=== PATIENT | male | born 1955 | race Caucasian/White ===

== ENCOUNTER → 2016-08-31 | Outpatient (CLI) | payer OTHER, MEDICARE ==
[~2016-08-31] MED LIST: ANDG TOP; CARB1CAP10 PO; CYCL10TA6 PO; FSM70 PO; HYDR-4079 PO; LEVO137T3 PO; MECL1TAB42 PO; MODA1TAB PO; PRED-301 PO; ULT50HP PO; VTMD PO; [UNRECOGNIZED DRUG - OTHER] PO
--- NOTE | 2016-09-08 06:35 | CODING QUERY MEDICAL NECESSITY ---
SUPPORTING DIAGNOSIS NEEDED Dr. Reese, A supporting diagnosis is required for the test/procedure performed on this patient in order for us to be reimbursed by the patient's insurance. Please provide a supporting diagnosis for the following test/procedure listed below next to the test name along with your signature. *If there is no additional diagnosis for this patient that would support the following test/procedure please document that below next to the test/procedure. Test(s)/Procedure(s) that require a supporting diagnosis: * 04366 PSA DIAGNOSIS: DATE OF SERVICE: 08/31/16 Provider Signature: Date: Thank you Irvin Llanes [facility] Information Management Once completed, please kindly fax back to [phone] For questions please call [phone]
== END | disposition home or self-care (01) ==
LOC: C.LABBFT 12:41
PROVIDERS: ATTEND Internal Medicine Endocrinology, Diabetes & Metabolism
DX: E03.8 Other specified hypothyroidism (principal); E27.49 Other adrenocortical insufficiency; E29.1 Testicular hypofunction; D32.9 Benign neoplasm of meninges, unspecified; N40.0 Benign prostatic hyperplasia without lower urinary tract symptoms; D49.7 Neoplasm of unspecified behavior of endocrine glands and other parts of nervous system

== ENCOUNTER → 2016-10-20 | Outpatient (CLI) | payer OTHER, MEDICARE ==
[2016-10-20 18:16] LABS: LYME DISEASE AB IGG NEG (NEG); LYME DISEASE AB IGM NEG (NEG)
--- NOTE | 2016-11-13 09:49 | EDITING REQUIRED CODING QUERY ---
TREATMENT RENDERED WITHOUT A DIAGNOSIS To promote full compliance with coding requirements relating to patient care, physician participation is requested in all cases of medical billing coder uncertainty. Please assist us with providing a diagnosis/symptom for the test(s) below: A diagnosis/symptom was not documented on your Order. A valid diagnosis/symptom is required to bill all insurances. Please remember that we are unable to code a diagnosis of rule out, probable, possible, questionable, or suspected. Tests that require a diagnosis: LYME IGM ROUTINE VENIPUNCTURE CANT CODE INSECT BITE PRINICIPAL PLEASE PROVIDE VALID DX. Provider Signature: Date: Thank you Lina Vang [employer] Information Management Once completed, please kindly fax back to [phone] For questions please call [phone]
--- NOTE | 2016-11-18 06:57 | CODING QUERY NO DIAGNOSIS ---
TREATMENT RENDERED WITHOUT A DIAGNOSIS To promote full compliance with coding requirements relating to patient care, physician participation is requested in all cases of steel fabricating supervisor uncertainty. Please assist us with providing a diagnosis/symptom for the test(s) below: A diagnosis/symptom was not documented on your Order. A valid diagnosis/symptom is required to bill all insurances. Please remember that we are unable to code a diagnosis of rule out, probable, possible, questionable, or suspected. Tests that require a diagnosis: LYME IGG LYME IGM NEED A PRIMARY DX. CANT USE TICK BITE Provider Signature: Date: Thank you Lina Vang [employer] Information Management Once completed, please kindly fax back to [phone] For questions please call [phone]
== END | disposition home or self-care (01) ==
LOC: C.LABBFT 09:27
PROVIDERS: ATTEND Internal Medicine
DX: Z01.89 Encounter for other specified special examinations (principal); W57.XXXA Bitten or stung by nonvenomous insect and other nonvenomous arthropods, initial encounter

== ENCOUNTER → 2016-12-22 | Outpatient (CLI) | payer OTHER, MEDICARE ==
[2016-12-22 18:01] LABS: LYME DISEASE AB IGG NEG (NEG); LYME DISEASE AB IGM NEG (NEG)
[2016-12-24 14:50] LABS: EPSTEIN BARR VIR CAPSID IGG >750.00 U/ML
== END | disposition home or self-care (01) ==
LOC: C.LABBFT 14:26
PROVIDERS: ATTEND Physician Assistant Medical
DX: Z11.59 Encounter for screening for other viral diseases (principal); R53.83 Other fatigue

== ENCOUNTER → 2016-12-28 | Outpatient (CLI) | payer OTHER, MEDICARE ==
[2016-12-28 14:56] LABS: BASO % 0.7 %; BASO ABS # 0.04 K/uL (0-0.2); COMPLETE YES; IG% 0.3 %; LYMPH % 31.3 %; LYMPH ABS # 1.83 K/uL (1.2-3.4); MEAN CELL VOLUME 86.2 fL (80-100); MEAN CORPUSCULAR HEMOGLOBIN 30.8 pg (25-34); MEAN CORPUSCULAR HGB CONC 35.8 g/dl (32-36); MEAN PLATELET VOLUME 8.5 fL (7.4-10.4); MONO % 13.7 %; PLATELET COUNT 210 K/uL (130-400); RED BLOOD COUNT 4.41 M/uL (4.7-6.1); WHITE BLOOD COUNT 5.84 K/uL (4.8-10.8)
[2016-12-28 15:38] LABS: ALT/SGPT 62 U/L (12-78); AST/SGOT 36 U/L (15-37); BLOOD UREA NITROGEN 11 mg/dl (7-18); BUN/CREATININE RATIO 14.5 (10-20); CALCIUM 8.7 mg/dl (8.5-10.1); CARBON DIOXIDE 27 mmol/L (21-32); CHLORIDE 108 mmol/L (98-107); CREATININE 0.77 mg/dl (0.60-1.40); GLUCOSE 92 mg/dl (70-99); POTASSIUM 4.1 mmol/L (3.5-5.1); SODIUM 142 mmol/L (136-145)
[2016-12-28 15:40] LABS: ALB/GLOB RATIO 1.1 (0.9-2); ALKALINE PHOSPHATASE 48 U/L (45-117)
== END | disposition home or self-care (01) ==
LOC: C.LAB 13:47
PROVIDERS: ATTEND Nurse Practitioner
DX: J32.9 Chronic sinusitis, unspecified (principal)

== ENCOUNTER → 2017-02-23 | Outpatient (CLI) | payer OTHER, MEDICARE ==
[2017-02-23 18:07] LABS: ALT/SGPT 30 U/L (12-78); AST/SGOT 18 U/L (15-37); BLOOD UREA NITROGEN 11 mg/dl (7-18); BUN/CREATININE RATIO 13.3 (10-20); CALCIUM 8.6 mg/dl (8.5-10.1); CARBON DIOXIDE 25 mmol/L (21-32); CHLORIDE 106 mmol/L (98-107); CREATININE 0.81 mg/dl (0.60-1.40); GLUCOSE 101 mg/dl (70-99); POTASSIUM 3.9 mmol/L (3.5-5.1); SODIUM 137 mmol/L (136-145)
[2017-02-23 18:11] LABS: ALB/GLOB RATIO 1.3 (0.9-2); ALKALINE PHOSPHATASE 50 U/L (45-117)
[2017-02-24 06:39] LABS: ESTIMATED AVERAGE GLUCOSE 97 mg/dl; HA1C FLAG Normal (Normal)
== END | disposition home or self-care (01) ==
LOC: C.LABBFT 12:07
PROVIDERS: ATTEND Internal Medicine Endocrinology, Diabetes & Metabolism
DX: E23.0 Hypopituitarism (principal); E03.8 Other specified hypothyroidism; E27.49 Other adrenocortical insufficiency; E29.1 Testicular hypofunction; D32.9 Benign neoplasm of meninges, unspecified; M81.8 Other osteoporosis without current pathological fracture; Z87.81 Personal history of (healed) traumatic fracture

== ENCOUNTER → 2017-03-18 | Outpatient (CLI) | payer OTHER, MEDICARE ==
--- NOTE | 2017-03-18 19:46 | DIAGNOSTIC IMAGING REPORT ---
THORACIC SPINE 3 VIEWS, LUMBAR SPINE 5 VIEWS HISTORY: Mid and lower back pain. COMPARISON: None. FINDINGS: Thoracic spine: There is no fracture. No subluxation. Mild S-shaped scoliosis of the thoracolumbar spine. Moderate compression deformity at T7 and mild superior endplate compression deformity at T6, T8, and T9. These are technically age indeterminate but likely old. No associated retropulsion. No paravertebral soft tissue swelling identified. Mild degenerative disc disease throughout the majority of the thoracic spine. Lumbar spine: No fractures or subluxation within the lumbar spine. The sacrum appears intact. Mild disc space narrowing at L5-S1. Mild disc space narrowing at L4-5. Partially visualized left hip prosthesis. IMPRESSION: 1. Mild to moderate compression deformity seen from T6 through T9. These are technically age indeterminate but likely old. 2. No fractures identified within the lumbar spine. 3. Mild degenerative disc disease seen within the thoracic and lumbar spine as described above. 4. Mild S-shaped scoliosis. Electronically signed by: Loyd Arcos M.D. 03/18/2017 7:44 PM Dictated Date/Time: 03/18/2017 7:40 PM
--- NOTE | 2017-03-18 19:53 | DIAGNOSTIC IMAGING REPORT ---
R RIBS UNILATERAL WITH PA CHEST CLINICAL HISTORY: MID BACK PAIN COMPARISON STUDY: Chest 12/06/2015. FINDINGS: Old, healed right-sided rib fractures. No acute rib fractures. No pneumothorax. The heart is normal in size. No pleural effusions. The lungs are clear. IMPRESSION: Multiple old, healed right-sided rib fractures. No acute rib fractures. No pneumothorax. Electronically signed by: Loyd Arcos M.D. 03/18/2017 7:52 PM Dictated Date/Time: 03/18/2017 7:50 PM
== END | disposition home or self-care (01) ==
LOC: C.RAD 18:33
PROVIDERS: ATTEND Nurse Practitioner
DX: M54.9 Dorsalgia, unspecified (principal)

== ENCOUNTER 2017-04-14 14:44 | Emergency (ER) | payer OTHER, MEDICARE ==
[~2017-04-14] VITALS: Ht 182.9 cm; Wt 98.0 kg
[~2017-04-14 14:44] MED LIST changes: -HYDR-4079 PO; -MODA1TAB PO; -[UNRECOGNIZED DRUG - OTHER] PO
[2017-04-14 14:47] VITALS: TEMP 36.3; Ht 182.9 cm; Wt 98.0 kg
[2017-04-14] MEDS ORDERED: ALEN70TA2 PO (15:05)
[2017-04-14] MEDS ORDERED: CARB200T2 PO (15:05)
[2017-04-14] MEDS ORDERED: ERGO500037 PO (15:05)
[2017-04-14] MEDS ORDERED: LEVO150T9 PO (15:05)
[2017-04-14] MEDS ORDERED: ULT50X PO (15:07)
[2017-04-14] MEDS: XYLOCAINE 1%/SOD BICARB 20 ML VIAL INFIL ONE (15:30)
--- NOTE | 2017-04-14 16:11 | EMERGENCY ROOM VISIT NOTE ---
ED Visit Note First contact with patient: 14:51 I did evaluate and examine this patient myself. I did guide management for the patient. I agree with the APC's assessment as discussed. Please see the APC's dictation for further details. The patient has a laceration to his fifth digit. The laceration is too old to suture at this time. There are no signs of infection. He was advised to follow up closely with his doctor and to watch for signs of infection.
--- NOTE | 2017-04-14 16:18 | EMERGENCY ROOM VISIT NOTE ---
ED Visit Note First contact with patient: 14:51 CHIEF COMPLAINT: Right fifth finger laceration last evening HISTORY OF PRESENT ILLNESS: Patient is an ambidextrous 61-year-old white male who presents the emergency department for evaluation of a laceration to the right fifth finger that he sustained last evening. Injury is greater than 12 hours old. He slipped while opening a box and cut himself with a knife. He cleansed the area with soap and water, and applied a bandage. Bleeding was controlled, but the bandage fell off overnight and he had to reapply this morning. He notes a mild throbbing pain at the site of the laceration that he rates a 1/10. His tetanus is up-to-date. Denies weakness or numbness of the finger. REVIEW OF SYSTEMS: Review of systems as per HPI. All other systems reviewed were negative. At least 6 systems reviewed. PMH: Electronic medical records are reviewed and summarized as above/below. See Problem List. SOCIAL HISTORY: Patient lives at home. Retired. Nonsmoker. PHYSICAL EXAM: Vital Signs: Reviewed Nurse's notes. There is a 3 cm long laceration on the palmar aspect of the of the finger pad of the right fifth finger. It comes to but does not cross the crease of the DIP joint. The edges gape apart with traction. There is no foreign material in the wound and it looks clean. There is no bleeding. No deep structures such as tendons or nerves are seen in the base of the wound. Flexion of the finger is full and strong at the DIP, PIP and MCP with each joint isolated. EMERGENCY DEPARTMENT COURSE: The patient was seen and evaluated as above. His laceration is greater than 12 hours old, and it was not felt that delayed primary closure was appropriate given the risk of infection. Patient expressed understanding and was in agreement. The patient's finger was cleansed with saline and Betadine, and anesthetized with 1% plain buffered lidocaine. The wound was then irrigated copiously with normal saline solution. Finger tourniquet was applied for hemostasis, then benzoin and Steri-Strips were applied to reapproximate the laceration. Tourniquet was removed, and hemostasis was maintained. Dressing and a short metal finger splint were applied. He does not have any evidence for tendinous or nerve injury. Wound care measures were discussed. He was discharged home in good condition. Medication reconciliation: I attest that I have personally reviewed the patient' s current medication list. Blood pressure screening : Patient was found to have normal blood pressure on screening and does not require follow-up. Problem List Medical Problems: (1) Fever Status: Resolved (2) Headache Status: Resolved (3) Meningioma Status: Chronic (4) Meningitis Status: Resolved (5) Pneumonia Status: Resolved (6) Viral meningitis Status: Resolved Surgical Problems: (1) History of appendectomy Status: Resolved (2) History of brain surgery Status: Resolved (3) History of craniotomy Status: Resolved (4) History of gamma knife treatment Status: Resolved Current/Historical Medications Scheduled , 1 CAP PO DAILY Alendronate Sodium (Fosamax), 70 MG PO WK Carbamazepine (Epitol), 200 MG PO BID Ergocalciferol (Vitamin D 69406 Unit), 50,000 UNIT PO BID Levothyroxine Sodium (Levothyroxine Sodium), 1 TAB PO DAILY Modafinil (Provigil), 200 MG PO DAILY/PRN Prednisone (Prednisone), 5 MG PO DAILY Testosterone (Androgel), 50 GM TOP DAILY Scheduled PRN Cyclobenzaprine Hcl (Flexeril), 1 TAB PO BID PRN for Muscle Spasms Hydrocodone/Acetaminophen 10MG/325MG ([place] 10MG/325MG), 1 TAB PO Q4H PRN for Pain Meclizine Hcl (Meclizine Hcl), 25 MG PO DAILY PRN for DIZZINESS Tramadol HCl (Tramadol HCl), 1-2 TABS PO Q4 PRN for Pain Allergies Coded Allergies: No Known Allergies (Verified , 08/22/13) Vital Signs Date Time Temp Pulse Resp B/P (MAP) Pulse Ox O2 Delivery O2 Flow Rate FiO2 04/14/17 16:33 72 18 112/76 96 04/14/17 14:47 36.3 77 18 139/86 100 Departure Information Impression Primary Impression: Laceration of finger Referrals Wilfred Minor M.D. (PCP) Patient Instructions [facility] Additional Instructions Allow Steri-Strips to fall off on their own. May reinforce or replace the Steri -Strips as needed. Keep the area covered with a bandage as needed. Avoid getting the wound excessively wet or immersing it in standing water, but may cleanse gently with mild soap and water. Wear the metal finger splint for support and protection to promote healing. May remove splint for wound care and gentle range of motion. Return for any signs of infection (increasing redness, swelling, drainage). Ice and elevate for swelling and pain. Ibuprofen 600 mg and Tylenol 1000 mg every 6 hrs for pain.
[2017-04-14 16:33] VITALS: BP 112/76; PULSE 72; O2SAT 96
[2017-04-14] MEDS ORDERED: ANDG TOP (16:59)
[2017-04-14] MEDS ORDERED: HYDR-4079 PO (19:16)
[2017-04-14] MEDS ORDERED: MODA1TAB PO (19:49)
[2017-04-14] MEDS ORDERED: [UNRECOGNIZED DRUG - OTHER] PO (23:11)
== END 2017-04-14 16:33 | disposition home or self-care (01) ==
LOC: C.EDB 14:47 → C.EDD 16:33
DX: S61.216A Laceration without foreign body of right little finger without damage to nail, initial encounter (principal); W26.0XXA Contact with knife, initial encounter; Y93.89 Activity, other specified; Y99.8 Other external cause status; Z87.01 Personal history of pneumonia (recurrent); Z90.89 Acquired absence of other organs; Z98.890 Other specified postprocedural states

== ENCOUNTER → 2017-05-20 | Outpatient (CLI) | payer OTHER, MEDICARE ==
[~2017-05-20] MED LIST changes: +ALEN70TA2 PO; -CARB1CAP10 PO; +CARB200T2 PO; +ERGO500037 PO; -FSM70 PO; +HYDR-4079 PO; -LEVO137T3 PO; +LEVO150T9 PO; +MODA1TAB PO; -ULT50HP PO; +ULT50X PO; -VTMD PO; +[UNRECOGNIZED DRUG - OTHER] PO
[2017-05-20 17:35] LABS: HEMATOCRIT 40.2 % (42-52)
[2017-05-20 18:14] LABS: BLOOD UREA NITROGEN 7 mg/dl (7-18); CALCIUM 8.8 mg/dl (8.5-10.1); CARBON DIOXIDE 30 mmol/L (21-32); CREATININE 0.96 mg/dl (0.60-1.40); GLUCOSE 103 mg/dl (70-99); POTASSIUM 3.8 mmol/L (3.5-5.1); SODIUM 138 mmol/L (136-145)
== END | disposition home or self-care (01) ==
LOC: C.LABBFT 11:53
PROVIDERS: ATTEND Internal Medicine Endocrinology, Diabetes & Metabolism
DX: E23.0 Hypopituitarism (principal); E03.8 Other specified hypothyroidism; E27.49 Other adrenocortical insufficiency; E29.1 Testicular hypofunction

== ENCOUNTER → 2017-06-10 | Outpatient (CLI) | payer OTHER, MEDICARE | END | disposition home or self-care (01) | LOC: C.LABBFT 14:25 | PROVIDERS: ATTEND Internal Medicine | DX: R35.0 Frequency of micturition (principal) ==

== ENCOUNTER → 2017-07-08 | Outpatient (CLI) | payer OTHER, MEDICARE ==
[~2017-07-08] VITALS: Ht 181.6 cm; Wt 219.2 kg
[2017-07-08 10:42] VITALS: BP 121/78; PULSE 81; Ht 181.6 cm; Wt 219.2 kg
== END | disposition home or self-care (01) ==
LOC: C.NEUR 10:20
PROVIDERS: ATTEND Internal Medicine Pulmonary Disease
DX: G47.31 Primary central sleep apnea (principal)

== ENCOUNTER → 2017-07-20 | Outpatient (CLI) | payer OTHER, MEDICARE ==
[2017-07-20 13:05] LABS: BASO % 0.5 %; BASO ABS # 0.03 K/uL (0-0.2); EOS % 1.5 %; EOS ABS # 0.09 K/uL (0-0.5); HEMATOCRIT 39.3 % (42-52); HEMOGLOBIN 13.6 g/dL (14.0-18.0); IG# 0.01 K/uL (0.00-0.02); LYMPH % 31.6 %; LYMPH ABS # 1.91 K/uL (1.2-3.4); MEAN CELL VOLUME 89.5 fL (80-100); MEAN CORPUSCULAR HGB CONC 34.6 g/dl (32-36); MEAN PLATELET VOLUME 8.7 fL (7.4-10.4); MONO % 11.6 %; NEUT % 54.6 %; PLATELET COUNT 229 K/uL (130-400); RED CELL DISTRIBUTION WIDTH CV 12.3 % (11.5-14.5); RED CELL DISTRIBUTION WIDTH SD 40.1 fL (36.4-46.3); WHITE BLOOD COUNT 6.04 K/uL (4.8-10.8)
[2017-07-20 13:32] LABS: ALBUMIN 3.7 gm/dl (3.4-5.0); ALT/SGPT 33 U/L (12-78); AST/SGOT 22 U/L (15-37); BLOOD UREA NITROGEN 6 mg/dl (7-18); CALCIUM 8.1 mg/dl (8.5-10.1); CARBON DIOXIDE 27 mmol/L (21-32); GLUCOSE 96 mg/dl (70-99); POTASSIUM 4.1 mmol/L (3.5-5.1); SODIUM 138 mmol/L (136-145)
[2017-07-20 13:35] LABS: ALKALINE PHOSPHATASE 45 U/L (45-117); TOTAL PROTEIN 7.1 gm/dl (6.4-8.2)
== END | disposition home or self-care (01) ==
LOC: C.LAB1850 12:11
PROVIDERS: ATTEND Psychiatry & Neurology Neurology
DX: G40.209 Localization-related (focal) (partial) symptomatic epilepsy and epileptic syndromes with complex partial seizures, not intractable, without status epilepticus (principal); N13.30 Unspecified hydronephrosis

== ENCOUNTER → 2017-07-27 | Outpatient (CLI) | payer OTHER, MEDICARE ==
--- NOTE | 2017-07-28 06:01 | PAP/PSG TECHNICIAN REPORT ---
[facility] Sports Director Polysomnogram Report Study name: None Report date: 07/28/2017 Study date: 07/27/2017 Referring Physician: Dr. Messi Garcia DO Name: NICOLE MANCIA Interpreting Physician: Messi Garcia D.O. Date of : 1955 Sports Director: Lina Martinez RPSGT. Sex: Male Age: 61 Study Type: PSG Weight: 219 lbs Height: 61 years, Height 5' 11.5" BMI: 30.12 Medications: EPITOL 200 MG, MODAFINIL 200 MG, TRAMADOL 50 MG, DOXEPIN 25 MG, NYSTATIN 225273 UNIT/GM, MECLIZINE 25 MG, SUMATRIPTAN 100 MG, ALENDRONATE 70 MG, TESTOSERONE 50 MG/5 GM 1% GEL, CYCLOBENZAPRINE 10 MG, HYDROCODONE-ACETAMINOPHEN 10-325 MG, VIT D 91328 UNIT, LEVOTHYROXINE 150 MCG Patient History 61 yr-old male here for a baseline study. He has a history of central sleep apnea with use of O2 while living in [place]. He has now been witnessed to snore and have apneas. He is back to assess his JONES and to see if central apneas are still present. His [place] scale is 10. The test was started on room air. ETCO2 testing was not utilized during this study. Room 3 Parameters Monitored NPSG: E1-M2, E2-M1, Fp1-M2, Fp2-M1, F3-M2, F4-M2, F4-M1, C3-M2, C4-M2, C4-M1, O1-M2, O2-M2, O2-M1, T3-M2, T4-M1, P3-M2, P4-M1, CHIN1, CHIN2, HR, EKG, Legs, PFLOW, SNOR, FLOW, CFLOW, Tidal Volume, THOR, ABDO, SpO2, PLTH, CPRESS, ETCO2 Wave, ETCO2, pH Sleep Architecture Sleep Stages Time at Lights Off 10:04:01 PM STAGES Time (min.) TST (%) Time at Lights On 5:30:01 AM Wake 67.0 -- Total Recording Time (TRT) 446.00 min. N1 37.5 10 Total Sleep Period (TSP) 441.5 min. N2 250.5 66 Total Sleep Time (TST) 379.0min. N3 49.5 13 Awake Time 67.0 min. REM 41.5 11 Wake after Sleep Onset 62.5 min. Sleep Efficiency (SE) 85 % Sleep Onset Latency (KADEEM) 4.5 min. Number of Stage 1 Shifts None Awakenings 27 Stage Changes 120 Number of REM periods 3 REM 41.5 11 REM Latency 263.5 min. NREM 337.5 89 Body Position Analysis Supine Right Left Side Prone Vertical Total Sleep Time (min.) 138.3 166.0 119.9 285.89 0.0 0.0 Total Sleep Time (%) 25% 44% 32% 75 0% N/A% Total Sleep Time REM (min.) 41.5 0.0 0.0 None 0.0 0.0 Total Sleep Time NREM (min.) 51.6 166.0 119.9 None 0.0 0.0 Intermittent Wake (min.) 45.2 13.3 8.4 None 0.0 0.0 Total Sleep Period (%) 30% None None None None None Arousals Myoclonus (PLM) * Events Count Index Events Count Index Spontaneous 19 3 Events Awake (PLMW) 100 89.6 Respiratory 7 1.1 Events Asleep w/ Arousal (PLMA) 98 15.5 PLM 98 16 Events Asleep w/o Arousal (PLMS) 454 71.9 Snoring 10 2 Total Asleep 552 87.4 Total 134 21 Total 652 88 Respiratory Analysis * CA OA MA CH H RERA Total Count 1 0 0 0 13 3 14 Index 0.2 0.0 0.0 0 2.1 0 2.7 Mean Duration 14.0 0.0 0.0 0.00 18.0 19.2 17.9 Longest Duration 14.0 0.0 0.0 0.00 0.0 22.4 33.1 Respiratory Event Summary Total Supine ~Supine Right Left Prone REM NREM Apneas Count 1 0 1 1 0 N/A 0 1 Index 0.2 0 0 0.4 0.0 N/A 0 0 Hypopneas (4% Desat) Count 13 6 7 3 4 N/A 1 12 Index 2.1 3.9 1 1.1 2.0 N/A 1.4 2.1 Apneas & All Hypopneas Count 14 6 8 4 4 N/A 1 13 Index 2.2 4 2 1 2 N/A 1.4 2.3 Respiratory Events (Pottery Machine Operator+All Hyp+RERA) Count 14 7 10 6 4 N/A 1 13 Index 2.7 5 2 2.2 2.0 N/A 2.9 2.7 Respiratory Related Arousal Count 7 7 4 3 1 N/A 1 6 Index 1.1 2 1 1 1 N/A 1 1 Snoring Analysis Supine Right Left Prone REM NREM Total Snore duration 12.8 min Snores count 100 121 92 N/A 58 255 313 Snore mean duration 2.5 Sec Snores index 64 44 46 N/A 83.9 45.3 49.6 TST with snoring (%) 3.4% Desaturation Event Summary: Minimum %SpO2 Event Count Mean/Min/Max Duration(sec.) Desaturation Index % Time In Bed > 90 39 25.7 / 8.8 / 59.8 5.4 99.6 86 - 90 0 N/A 0.0 0.3 81 - 85 0 N/A 0.0 0.1 76 - 80 0 N/A 0.0 0.0 71 - 75 0 N/A 0.0 0.0 66 - 70 0 N/A 0.0 0.0 61 - 65 0 N/A 0.0 0.0 56 - 60 0 N/A 0.0 0.0 51 - 55 0 N/A 0.0 0.0 < 50 0 N/A 0.0 0.0 Total REM NREM Awake <50% 0.0 min. 0.0 min. 0.0 min. 0.0 min. 51 - 60% 0.0 min. 0.0 min. 0.0 min. 0.0 min. 61 - 70% 0.0 min. 0.0 min. 0.0 min. 0.0 min. 71 - 80% 0.0 min. 0.0 min. 0.0 min. 0.0 min. 81 - 90% 1.5 min. 1.2 min. 0.1 min. 0.3 min. 91 - 100% 431.4 min. 40.3 min. 336.4 min. 54.7 min. Average 94 93 94 94 Minimum SpO2 82 85 90 82 Desaturation Event Index 5.2 5.8 3.6 14.3 # Desat. Events below 89% 1 1 N/A N/A Time(%) with Saturation below 89% 0.1 0.1 0.0 0.1 Time(min.) with Saturation below 89% 0.6 0.3 0.0 0.3 Time (mins) REM (mins) NREM (mins) % of TST SpO2 Below 90% 1 1 N0 0.1 SpO2 Below 88% 1 0 0 0 Heart Rate Analysis Min (bpm) Max (bpm) Average (bpm) Awake 59 127 74 NREM 54 88 67 REM 54 73 64 Overall 54 88 67 Supplemental O2 Values Minimum O2 level: None Value Start Time End Time Sports Director Comments Mr. Rojas slept in the right, left, and supine positions. No cardiac arrhythmias were noted PLMs and leg movements that caused many arousals were noted. No bruxism noted. Snoring was noted and scored as a 1 on a scale of 1 through 5. (0=no snoring, 5=snoring loud enough to be heard through a closed door or down the [address] way). He awoke to use the restroom one time during the night. Mr. Mancia stated that he slept about the same as usual. The final report will be interpreted and signed by a sleep physician. The completed physician report will then be placed in the patient medical record. Therapy (cm H2O) 0 TIB (min.) 446.0 TST (min.) 379.0 Sleep Onset (min.) 4.5 REM Onset From Sleep (min.) 263.5 Sleep Efficiency % 85 Wakefulness (%) 15 Wakefulness (min.) 67.0 NREM 1 (%) 10 NREM 1 (min.) 37.5 NREM 2 (%) 66 NREM 2 (min.) 250.5 NREM 3 (%) 13 NREM 3 (min.) 49.5 REM (%) 11 REM (min.) 41.5 # Arousals 134 Arousal Index 21 # Snore 313 Snore Index 49.6 AHI 2.2 AHI Supine 4 AHI Non-Supine 2 NREM AHI 2.3 REM AHI 1.4 RDI 2.7 # Obstructive Apnea 0 # Central Apnea 1 # Mixed Apnea 0 # Hypopneas 13 RERAs 3 Total Respiratory Events 19 Time Below SpO2 89% (min.) 0.3 Mean NREM SpO2 (%) 94 Mean REM SpO2 (%) 93 Mean Sleep SpO2 (%) 94 Min NREM SpO2 (%) 90 Min REM SpO2 (%) 85 Position Supine (min.) 138.3 Position Non-supine (min.) 285.9 LM Index Sleep 87.4 LM Index NREM 89.4 LM Index REM 70.8 Mean Heart Rate (bpm) 67 Min Heart Rate (bpm) 54
--- NOTE | 2017-07-31 00:43 | POLYSOMNOGRAPH REPORT ---
CLINICAL DATA: The patient is a 61-year-old male who 10 years ago had a history of central sleep apnea treated with nasal cannula oxygen. This is while he was living in [place]. He has a history of snoring and observed apneas. His [place] Sleepiness Scale score is 10. This was an in-lab overnight polysomnography. SLEEP ARCHITECTURE: The total sleep period was 441.5 minutes. The total sleep time was 379 minutes. Sleep efficiency was mildly reduced at 85%. Sleep latency was 4.5 minutes. Wake after sleep onset was 62.5 minutes. The REM latency was prolonged at 263.5 minutes. There were 2 REM periods during the night. Sleep consisted of stage N1 10%, stage N2 66%, stage N3 13%, stage REM 11%. AROUSAL DATA: The patient had a total of 134 arousals including 19 spontaneous arousals, 7 respiratory arousals, 98 PLM arousals and 10 snoring arousals. The arousal index is 21. PLM DATA: The patient had a total of 552 periodic limb movements of sleep for a PLM index of 87.4. There were 98 arousals, associated with limb movements for a PLM arousal index of 15.5. EKG: The cardiac rhythm was normal sinus. The cardiac rates ranged from 54-88 beats per minute. The average heart rate was 67 beats per minute. No arrhythmias noted. RESPIRATORY DATA: The patient had a total of 14 respiratory events including 1 central apnea and 13 hypopneas. Hypopneas were scored according to the 4% desaturation rule. He also had 3 RERAs. The longest apnea was 14 seconds. The mean duration of the hypopneas was 18 seconds. The apnea hypopnea index was 2.2 events per hour. This would suggest no significant sleep apnea. OXIMETRY DATA: The average saturation for the night was 94%. The minimum saturation was 82%. This may have been artifactual. There was only 0.6 minutes with desaturations below 89%. WIRE STITCHER MACHINE COMMENTS: Mr. Mancia slept in the right, left, and supine positions. No cardiac arrhythmias noted. PLMs and leg movements that caused many arousals were noted. No bruxism noted. Snoring was noted and scored as a 1 on a scale of 1 through 5. He awoke to use the restroom one time during the night. Mr. Mancia stated that he slept about the same as usual. IMPRESSION: 1. No evidence for sleep apnea, either obstructive or central. 2. Periodic limb movement disorder. COMMENTS: The patient had no sleep apnea as noted. His sleep architecture showed a decrease in REM sleep. There were frequent periodic limb movements with a modest number of arousals. They clearly seemed to be disturbing his sleep. Historically, he did not complain of any significant restless legs either in bed or prior to bed. Nonetheless, his sleep was somewhat disturbed due to the limb movements. Consideration could be given to treatment for the underlying limb movement disorder. RECOMMENDATIONS: 1. Consideration was given to treatment for the underlying limb movement disorder. 2. The patient should be advised of the appropriate principles of sleep hygiene including having a regular sleep-wake schedule and allowing sufficient sleep time. 3. If possible, the patient should avoid sleeping in the supine position where there was typically more snoring and respiratory events.
== END | disposition home or self-care (01) ==
LOC: C.NEUR 21:00
PROVIDERS: ATTEND Internal Medicine Pulmonary Disease
DX: G47.61 Periodic limb movement disorder (principal)

== ENCOUNTER → 2017-11-15 | Outpatient (CLI) | payer OTHER, MEDICARE ==
[2017-11-15 15:59] LABS: BASO % 0.5 %; BASO ABS # 0.04 K/uL (0-0.2); EOS % 1.5 %; EOS ABS # 0.13 K/uL (0-0.5); HEMATOCRIT 39.8 % (42-52); HEMOGLOBIN 13.5 g/dL (14.0-18.0); IG# 0.03 K/uL (0.00-0.02); LYMPH % 23.9 %; LYMPH ABS # 2.12 K/uL (1.2-3.4); MEAN CELL VOLUME 88.2 fL (80-100); MEAN CORPUSCULAR HEMOGLOBIN 29.9 pg (25-34); MEAN CORPUSCULAR HGB CONC 33.9 g/dl (32-36); MEAN PLATELET VOLUME 8.8 fL (7.4-10.4); NEUT % 64.8 %; NEUT ABS # 5.74 K/uL (1.4-6.5); PLATELET COUNT 236 K/uL (130-400); RED CELL DISTRIBUTION WIDTH CV 12.2 % (11.5-14.5); RED CELL DISTRIBUTION WIDTH SD 39.3 fL (36.4-46.3); WHITE BLOOD COUNT 8.86 K/uL (4.8-10.8)
[2017-11-15 16:20] LABS: ALBUMIN 3.5 gm/dl (3.4-5.0); ALKALINE PHOSPHATASE 34 U/L (45-117); ALT/SGPT 21 U/L (12-78); AST/SGOT 13 U/L (15-37); BLOOD UREA NITROGEN 10 mg/dl (7-18); CALCIUM 8.1 mg/dl (8.5-10.1); CARBON DIOXIDE 25 mmol/L (21-32); GLUCOSE 104 mg/dl (70-99); POTASSIUM 3.8 mmol/L (3.5-5.1); SODIUM 139 mmol/L (136-145); TOTAL PROTEIN 6.9 gm/dl (6.4-8.2)
== END | disposition home or self-care (01) ==
LOC: C.LAB1850 14:08
PROVIDERS: ATTEND Internal Medicine Endocrinology, Diabetes & Metabolism
DX: N40.1 Benign prostatic hyperplasia with lower urinary tract symptoms (principal); R51 Headache; E23.0 Hypopituitarism; E03.8 Other specified hypothyroidism; E27.49 Other adrenocortical insufficiency; E29.1 Testicular hypofunction; D32.9 Benign neoplasm of meninges, unspecified; Z87.81 Personal history of (healed) traumatic fracture; G47.31 Primary central sleep apnea; M81.8 Other osteoporosis without current pathological fracture

== ENCOUNTER 2019-11-04 06:12 | Observation (INO) ==
[2019-11-04] MEDS ORDERED: PROCHLORPERAZINE 2 ML IV ONE (06:46)
[2019-11-04] MEDS ORDERED: SODIUM CHLORIDE 0.9% 1000ML 1,000 ML IV ONE (06:46)
[2019-11-04] MEDS ORDERED: KETOROLAC 30 MG/ML VIAL IV ONE (06:46)
[2019-11-04] MEDS ORDERED: DiphenhydrAMINE HCL 50 MG/ML VIAL IV STA (06:46)
[2019-11-04] MEDS ORDERED: MAGNESIUM SULFATE / D5W 1 GM/100 ML BAG IV STA (06:48)
[2019-11-04] MEDS ORDERED: clonazePAM 0.25 MG TAB PO STA (06:48)
[2019-11-04] MEDS ORDERED: LIDOCAINE 5% 1 PATCH TD STA (06:48)
[2019-11-04 07:14] LABS: Basophils # (auto) 0.02 K/uL (0-0.2); Basophils % (auto) 0.2 %; Eosinophils # (auto) 0.13 K/uL (0-0.5); Eosinophils % (auto) 1.6 %; Hematocrit (blood only) 33.5 % (42-52); Hemoglobin 11.6 g/dL (14.0-18.0); Immature Granulocytes # (auto) 0.08 K/uL (0.00-0.02); Lymphocytes # (auto) 2.61 K/uL (1.2-3.4); Lymphocytes % (auto) 31.5 %; Mean Corpuscular Hemoglobin 30.6 pg (25-34); Mean Corpuscular Hgb Conc 34.6 g/dL (32-36); Mean Corpuscular Volume 88.4 fL (80-100); Mean Platelet Volume 8.4 fL (7.4-10.4); Monocytes # (auto) 1.05 K/uL (0.11-0.59); Monocytes % (auto) 12.7 %; Platelet Count 242 K/uL (130-400); RDW Coefficient of Variation 12.9 % (11.5-14.5); RDW Standard Deviation 41.6 fL (36.4-46.3); Red Blood Count 3.79 M/uL (4.7-6.1); White Blood Count 8.29 K/uL (4.8-10.8)
[2019-11-04] MEDS ORDERED: VALPROATE SOD 500 MG in DEXTROSE 5% 50 ML IV STA (07:26)
[2019-11-04] MEDS ORDERED: DEXAMETHASONE SOD INJ 10 MG/ML VIAL IV ONE (07:26)
[2019-11-04 07:30] LABS: Alanine Aminotransferase 33 U/L (12-78); Albumin Level 3.5 gm/dl (3.4-5.0); Aspartate Aminotransferase 18 U/L (15-37); BUN Creatinine Ratio 17.8 (10-20); Blood Urea Nitrogen 15 mg/dl (7-18); Calcium 8.6 mg/dl (8.5-10.1); Carbon Dioxide 28 mmol/L (21-32); Chloride 97 mmol/L (98-107); Creatinine Clr Calc Pharmacy 107.5 ml/min; Est GFR (Non-African American) 92.3; Glucose 97 mg/dl (70-99); Potassium 4.1 mmol/L (3.5-5.1); Sodium 131 mmol/L (136-145)
[2019-11-04 07:41] LABS: Alkaline Phosphatase 51 U/L (45-117); Bilirubin,Total 0.2 mg/dl (0.2-1); Globulin 3.4 gm/dl (2.5-4.0); Thyroid Stimulating Hormone < 0.005 uIu/ml (0.300-4.500); Total Protein 6.9 gm/dl (6.4-8.2)
--- NOTE | 2019-11-04 07:56 | Emergency Department Note ---
History of Present Illness General Chief complaint: Headache Stated complaint: HEAD PAIN Time Seen by Provider: 11/04/19 06:33 Source: patient, EMS, RN notes reviewed and old records reviewed Mode of arrival: ambulatory Limitations: no limitations History of Present Illness Provider complaint: Headache Onset (ago): week(s) 1 Location: head Radiation: non-radiation Severity: severe Pain Consistency: + intermittent Maximum Pain Intensity: 3 Current Pain Intensity: 3 Quality: + stabbing Relieved By: + immobilization Exacerbated By: + movement Associated symptoms: no confusion, no chest pain, no diaphoresis, no fever/chills, no nausea/vomiting, no rash and no shortness of breath Treatments prior to arrival: other (Baclofen, Neurontin) This is a 64-year-old male who presents emergency department for the third time this week complaining of trigeminal neuralgia pain. Patient has had extensive work-ups both time he has been in the emergency department including MRI and MRA of the head. The patient reports his pain is coming in waves. He has been doubling up on his medications in an attempt to get rid of the headache with no success. He has been taking sumatriptan without any success. He was started on baclofen last time he was here in the emergency department. He does not have a follow-up with pain management or neurology for quite some time Home Medications Home Medications Medication Instructions Recorded Confirmed Type PreserVision AREDS-2 1 tab PO BID 07/19/18 11/04/19 History multivitamin 1 cap PO QAM 07/19/18 11/04/19 History testosterone 1 packet TRANSDERMAL DAILY 07/19/18 11/04/19 History denosumab 60 mg/mL subcutaneous 60 mg SUBCUT Q6MO ml 11/13/18 11/04/19 History syringe modafinil 200 mg tablet 200 mg PO DAILY PRN #90 tab 08/25/19 11/04/19 Rx gabapentin 300 mg capsule 300 mg PO TID #90 cap 09/05/19 11/04/19 Rx nortriptyline 50 mg PO HS 10/28/19 11/04/19 History sumatriptan succinate 100 mg PO UD #8 tab 10/28/19 11/04/19 Rx baclofen 5 mg PO BID 14 Days #28 tab 10/31/19 11/04/19 Rx hydrocortisone See Rx Instructions .ROUTE .COMPLEX 11/04/19 11/04/19 History levothyroxine [Euthyrox] 150 mcg PO QAM 11/04/19 11/04/19 History Allergies Allergy/AdvReac Type Severity Reaction Status Date / Time doxepin Allergy itchy Verified 11/04/19 08:11 amoxicillin [From Augmentin] AdvReac Intermediate diarrhea / Verified 11/04/19 08:11 hx c diff clavulanic acid AdvReac Intermediate diarrhea / Verified 11/04/19 08:11 [From Augmentin] hx c diff Past Med/Surg History Medical History Gout Hernia History of meningioma of the brain BASAL SKULL. PT HAS HAD MULTIPLE CRAINOTOMY PROCEDURES AND 2 GAMMA KNIFE PROCEDURES. CONTINUES TO FOLLOW WITH DR. GOMEZ (NEURO) Hypothyroidism Migraine Status post gamma knife treatment X2 Surgical History History of appendectomy History of blepharoplasty RIGHT EYE. History of cataract extraction with lens replacement History of craniotomy X4 INCLUDING GAMMA KNIFE SURGERY X2. 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 1996, 1997, 1998, 2001, AND 2002 History of eye surgery LEFT, R/T MUSCLE REPAIR History of hip surgery [place] PROCEDURE WITH DR. OTOOLE History of laminectomy L5 S1 History of surgery LEFT RING FINGER Family History Mother Hypertension Father Heart disease Social History Smoking Status: Never smoker Second Hand Exposure: No; Hx Alcohol Use: No Hx Substance Use: No Preferred Language: Thai Communication Ability: Effective Behavioral Health Director Required: No Beliefs That Will Affect Care: None marital status: Current Living Situation: Alone current occupational status: unemployed Other Information That Helps Us Care for You: No Feels Safe at Home: Yes Safety Concerns: Feels Safe At This Time Review of Systems A total of 10 systems reviewed and were otherwise negative Physical Exam Vital Signs Vital Signs - 24 hr 11/04/19 06:18 11/04/19 07:04 Pulse Rate 70 64 Pulse Rate [Right Finger] 62 Respiratory Rate 16 16 Respiratory Depth Normal Blood Pressure 141/87 H Blood Pressure [Right Arm] 134/92 Blood Pressure Mean 105 Blood Pressure Mean [Right Arm] 106 Blood Pressure Position [Right Arm] Lying Pulse Oximetry 100 100 Oxygen Delivery Method Room Air Non-rebreather Oxygen Flow Rate 10 Sepsis Recent Fever Within 48 Hours No Sepsis New/Unexplained Change in Mental Status No Sepsis Action Taken by Nursing No Action Required VITAL SIGNS - Vital signs and nursing notes were reviewed. No evidence of me ningitis or encephalitis on exam GENERAL - 64-year-old appearing stated age who is in no acute distress. Communicates well with provider and answers questions appropriately. SKIN - Without rashes. HEAD - NC/AT. EYES - PERRL with EOMI bilaterally. Sclera anicteric. Palpebral conjunctiva pink and moist with no injection noted. EARS - No deformities of external structures noted on gross examination bilaterally. No pain elicited with palpation of the tragus bilaterally. External auditory canals without discharge or otorrhea. Tympanic membranes pearly siu without retraction or bulging. No fluid or purulent material visualized behind the TM. Handle of malleus, umbo, cone of light, pars tensa/flaccid all easily visualized. NOSE - Midline and without cyanosis. No epistaxis or purulent drainage noted. Septum midline without deviation or septal hematoma noted. MOUTH/OROPHARYNX - Without perioral cyanosis. Buccal mucosa pink and moist and without leukoplakia. Tongue midline with equal elevation of palate bilaterally. No tonsillar hypertrophy, erythema, or exudates noted. dentition noted. NECK - Neck with FROM. Supple to palpation. lymphadenopathy noted. No nuchal rigidity. LUNGS - Chest wall symmetric without accessory muscle use, intercostals retractions, or central cyanosis. Normal vesicular breath sounds CTA B/L. No wheezes, rales, or rhonchi appreciated. CARDIAC - RRR with S1/S2. No murmur, rubs, or gallops appreciated. ABDOMEN - Abdominal contour without pulsations or visible masses. BS normoactive all four quadrants. No tenderness, palpable masses, hepatospleno megaly, or ascites noted. EXTREMITIES - No clubbing or peripheral cyanosis. No pretibial edema present. +3/5 radial, posterior tibial, and dorsalis pedis pulses palpated throughout. +5/5 strength noted in UE/LE bilaterally. NEUROLOGIC - Cranial nerves II through XII grossly intact. Sensory intact to light touch throughout. Patellar reflexes +2/4. PSYCH - A&Ox3 and cooperates fully with examiner. Pt is very pleasant and interacts well with examiner. Course Administered Medications Baclofen (Lioresal) 10 mg PO BID [facility] Stop: 12/04/19 20:59 Last Admin: 11/04/19 20:12 Dose: 10 mg Documented by: [id number] Calcium Carbonate (Os-Liang 500) 1,250 mg PO DAILY [place] Stop: 12/04/19 09:20 Last Admin: 11/04/19 11:27 Dose: 1,250 mg Documented by: [id number] Carbamazepine (Tegretol) 200 mg PO TID [place] Stop: 12/04/19 09:20 Last Admin: 11/04/19 20:15 Dose: 200 mg Documented by: [id number] Admin: 11/04/19 14:14 Dose: 200 mg Documented by: [id number] Admin: 11/04/19 11:33 Dose: 200 mg Documented by: [id number] Enoxaparin Sodium (Lovenox) 40 mg SQ Q24H [place] Stop: 12/04/19 09:59 Last Admin: 11/04/19 11:27 Dose: 40 mg Documented by: [id number] Gabapentin (Neurontin) 400 mg PO TID [facility] Stop: 12/04/19 20:59 Last Admin: 11/04/19 20:20 Dose: 400 mg Documented by: [id number] Hydrocortisone (Cortef) 5 mg PO QPM [facility] Stop: 12/04/19 20:59 Last Admin: 11/04/19 20:12 Dose: 5 mg Documented by: [id number] Hydrocortisone (Cortef) 20 mg PO QAM [facility] Stop: 12/04/19 09:20 Last Admin: 11/04/19 11:24 Dose: 20 mg Documented by: [id number] Levothyroxine Sodium (Synthroid) 150 mcg PO DAILYBB [facility] Stop: 12/04/19 09:59 Last Admin: 11/05/19 06:00 Dose: 150 mcg Documented by: [id number] Admin: 11/04/19 11:27 Dose: 150 mcg Documented by: [id number] Miscellaneous (Order Awaiting Action) 1 ea N/A QS [facility] Stop: 12/04/19 15:59 Last Admin: 11/05/19 00:32 Dose: Not Given Documented by: [id number] Admin: 11/04/19 17:04 Dose: Not Given Documented by: [id number] Nortriptyline HCl (Pamelor) 50 mg PO PM [place] Stop: 12/04/19 20:59 Last Admin: 11/04/19 20:20 Dose: 50 mg Documented by: [id number] Discontinued Medications Baclofen (Lioresal) 5 mg PO BID [place] Stop: 12/04/19 09:20 Last Admin: 11/04/19 11:25 Dose: Not Given Documented by: [id number] Clonazepam (Klonopin) 0.25 mg PO NOW STA Stop: 11/04/19 06:49 Last Admin: 11/04/19 07:11 Dose: 0.25 mg Documented by: [id number] Dexamethasone (Decadron) 10 mg IV NOW ONE Stop: 11/04/19 07:27 Last Admin: 11/04/19 07:39 Dose: 10 mg Documented by: [id number] Diphenhydramine HCl (Benadryl) 50 mg IV NOW STA Stop: 11/04/19 06:47 Last Admin: 11/04/19 07:03 Dose: 50 mg Documented by: [id number] Gabapentin (Neurontin) 300 mg PO TID [place] Stop: 12/04/19 09:20 Last Admin: 11/04/19 14:15 Dose: 300 mg Documented by: [id number] Admin: 11/04/19 11:25 Dose: 300 mg Documented by: [id number] Prochlorperazine (Compazine) 2 mls @ 1 mls/min IV ONE ONE Stop: 11/04/19 06:47 Last Admin: 11/04/19 07:03 Dose: 1 mls/min Documented by: [id number] Magnesium Sulfate/Dextrose (Magnesium Sulfate / D5w) 1 gm in 100 mls @ 100 m ls/hr IV NOW STA Stop: 11/04/19 07:47 Last Infusion: 11/04/19 09:23 Dose: 0 mls/hr Documented by: [id number] Admin: 11/04/19 07:02 Dose: 100 mls/hr Documented by: [id number] Sodium Chloride (Nss 1000ml) 1,000 mls @ 999 mls/hr IV .Q1H1M ONE Stop: 11/04/19 07:46 Last Infusion: 11/04/19 09:23 Dose: 0 mls/hr Documented by: [id number] Admin: 11/04/19 07:03 Dose: 999 mls/hr Documented by: [id number] Valproic Acid 500 mg/ Dextrose 55 mls @ 55 mls/hr IV NOW STA Stop: 11/04/19 08:25 Last Infusion: 11/04/19 09:23 Dose: 0 mls/hr Documented by: [id number] Admin: 11/04/19 08:06 Dose: 55 mls/hr Documented by: [id number] Ketorolac Tromethamine (Toradol) 30 mg IV NOW ONE Stop: 11/04/19 06:47 Last Admin: 11/04/19 07:02 Dose: 30 mg Documented by: [id number] Lidocaine (Lidoderm 5%) 1 patch TD NOW STA Stop: 11/04/19 06:49 Last Admin: 11/04/19 07:03 Dose: 1 patch Documented by: [id number] Miscellaneous (Remove Lidoderm Patch) 1 ea N/A DAILY@2100 [place] Stop: 11/04/19 23:00 Last Admin: 11/04/19 20:15 Dose: 1 ea Documented by: [id number] Medical Decision Making Differential Diagnosis Migraine headache, meningitis, sinusitis, CO exposure, ICH, SAH, infection, tumor, headache, sinus thrombosis, arterial dissection, as well as other pathologies. Medical Records Attestation: I reviewed the patient's medical records. Home Medications Current Medication List: was personally reviewed by me Laboratory Data Attestation: I reviewed the patient's lab results. Result diagrams: 11/04/19 06:56 11/04/19 06:56 Lab Results 11/04/19 11/04/19 Range/Units 06:56 06:56 WBC 8.29 (4.8-10.8) K/uL RBC 3.79 L (4.7-6.1) M/uL Hgb 11.6 L (14.0-18.0) g/dL Hct 33.5 L (42-52) % MCV 88.4 (80-100) fL MCH 30.6 (25-34) pg MCHC 34.6 (32-36) g/dL RDW Std Deviation 41.6 (36.4-46.3) fL RDW Coeff of Oniel 12.9 (11.5-14.5) % Plt Count 242 (130-400) K/uL MPV 8.4 (7.4-10.4) fL Immature Gran % (Auto) 1.0 % Neut % (Auto) 53.0 % Lymph % (Auto) 31.5 % [place] % (Auto) 12.7 % Eos % (Auto) 1.6 % Baso % (Auto) 0.2 % Neut # (Auto) 4.40 (1.4-6.5) K/uL Lymph # (Auto) 2.61 (1.2-3.4) K/uL [place] # (Auto) 1.05 H (0.11-0.59) K/uL Eos # (Auto) 0.13 (0-0.5) K/uL Baso # (Auto) 0.02 (0-0.2) K/uL Immature Gran # (Auto) 0.08 H (0.00-0.02) K/uL Sodium 131 L (136-145) mmol/L Potassium 4.1 (3.5-5.1) mmol/L Chloride 97 L (98-107) mmol/L Carbon Dioxide 28 (21-32) mmol/L Anion Gap 6.0 (3-11) BUN 15 (7-18) mg/dl Creatinine 0.86 (0.6-1.4) mg/dl Est Cr Clr Drug Dosing 107.5 ml/min Est GFR ( Amer) 107.0 Est GFR (Non-Af Amer) 92.3 BUN/Creatinine Ratio 17.8 (10-20) Glucose 97 (70-99) mg/dl Calcium 8.6 (8.5-10.1) mg/dl Total Bilirubin 0.2 (0.2-1) mg/dl AST 18 (15-37) U/L ALT 33 (12-78) U/L Alkaline Phosphatase 51 (45-117) U/L Total Protein 6.9 (6.4-8.2) gm/dl Albumin 3.5 (3.4-5.0) gm/dl Globulin 3.4 (2.5-4.0) gm/dl Albumin/Globulin Ratio 1.0 (0.9-2) TSH < 0.005 L (0.300-4.500) uIu/ml Free T4 1.26 (0.8-1.6) ng/dl [facility] Narrative This is a 64-year-old male who presents emergency department complaining of headache. The patient has doubled up on his medications without success. He was given a migraine cocktail here including Toradol Compazine Benadryl magnesium he was then given valproate as well as Decadron however I am concerned that this is the patient's third visit and we have been unable to get the patient's pain under control. For this reason I did discuss the case with the hospitalist service who did agree to admit the patient. Patient is in agreement with the treatment plan. I will note he does not have an elevation his white blood cell count. Patient was seen and evaluated as above in room A3. Review was performed of nursing notes and vital signs. I did review pertinent previous visits and patient history. After obtaining a thorough history and physical examination the above work up was performed. An order was placed for continuous cardiac monitoring. The monitor shows a rate of 64 with Normal Sinus rhythm. The patient was evaluated during the global COVID-19 pandemic, and that diagnosis was suspected/considered upon their initial presentation. Their evaluation, treatment and testing was consistent with current guidelines for patients who present with complaints or symptoms that may be related to COVID- 19. Impression & Plan Headache, Anemia Discharge Plan Visit Data *Final* Discharge Date/Time: 11/04/19 08:22 Chief Complaint: Headache Stated Complaint: HEAD PAIN ED Provider: Colin Matos Discharge Problem: Headache, Anemia Patient Disposition: Admitted As Inpatient Discharge Instructions Interventions: ED Discharge Assessment Last Done: 11/04/19 08:22 Discharge Problem: Headache Qualifiers: Headache type: unspecified Headache chronicity pattern: unspecified pattern Intractability: not intractable Qualified Code(s): R51 - Headache Anemia Qualifiers: Anemia type: unspecified type Qualified Code(s): D64.9 - Anemia, unspecified
[2019-11-04 08:00] LABS: T4 Free Thyroxine 1.26 ng/dl (0.8-1.6)
[2019-11-04] MEDS ORDERED: ACETAMINOPHEN 325 MG TAB PO PRN (09:21)
[2019-11-04] MEDS ORDERED: BACLOFEN 10 MG TAB PO SCH (09:21)
[2019-11-04] MEDS ORDERED: ONDANSETRON INJ 2 MG/ML 2 ML VIAL IV PRN (09:21)
[2019-11-04] MEDS: HYDROCORTISONE 10 MG TAB PO SCH (11:24)
[2019-11-04] MEDS: GABAPENTIN 300 MG CAP PO SCH ×2 (11:25→14:15)
[2019-11-04] MEDS: ENOXAPARIN INJ 40 MG/0.4 ML SYR SQ SCH (11:27)
[2019-11-04] MEDS: LEVOTHYROXINE SODIUM 150 MCG TABLET PO SCH (11:27)
[2019-11-04] MEDS: CALCIUM CARBONATE 1250MG TAB PO SCH (11:27)
[2019-11-04] MEDS: carBAMazepine 200 MG TABLET PO SCH ×3 (11:33→20:15)
[2019-11-04] MEDS ORDERED: clonazePAM 0.25 MG TAB PO PRN (17:12)
--- NOTE | 2019-11-04 17:12 | History & Physical Report ---
Date of Service November 04, 2019 Assessment & Plan (1) Trigeminal neuralgia: h/o such, first episode was 5 years ago, went away for some time returned about 6 weeks ago, he has been treated with Carbamazepine and Neurontin symptoms would wax and wane, more intense at night 3 weeks ago he saw Dr. Carrizales for nerve block, worked well for 2 weeks, then he got possible sinus infection just finished course of Augmentin past three nights have been excruciating at times, worst pain of his life he is now on Baclofen, Amitriptyline, Tegretol, Neurontin he says that Hydrocodone helps but no one prescribes it in the ED this morning they used Lidoderm patch and Klonopin and he has been doing well most of the day, just a twinge here or there he admits that he was increasing his meds at home without telling physician - increased Tegretol to 400mg BID, increased Amitriptyline to 50-75mg a night, w ould take 25mg at a time, increased Baclofen to 10mg BID he is hoping for another nerve block this week plan: continue Tegretol but at 200mg TID, Amitriptyline 50mg HS, Baclofen 10mg BID, Neurontin 400mg TID [place] 5/325mg PRN consult neurology for any further recommendations try to get in with pain clinic early this week may be ready for discharge tomorrow (2) Migraine: no recent migraines uses Sumatriptan PRN (3) Chronic headache: see above (4) Sinusitis: recently completed a course of Augmentin no further sinus symptoms Admission and Anticipated Discharge Date Admission Date: November 04, 2019 History of Present Illness Chief Complaint: I can't stand this pain anymore Primary Care Provider: Wilfred Minor MD Patient presents with ongoing symptoms of trigeminal neuralgia. This is his third trip to the ED this week and admission requested due to intractable pain, consideration for pain management consult. Patient has history of meningioma that was operated on twice in the past, most recent was 2002. Received gamma knife therapy. He was evaluated for clinical trial at [facility] but was not accepted. He follows locally with Dr. Gomez who treats him for his trigeminal neuralgia. He has also seen Dr. Carrizales h/o such, first episode was 5 years ago, went away for some time returned about 6 weeks ago, he has been treated with Carbamazepine and Neurontin symptoms would wax and wane, more intense at night at the worst it is more than a 10 out of 10, feels like 20 out of 10 pain, burning, nothing feels like it 3 weeks ago he saw Dr. Carrizales for nerve block, worked well for 2 weeks, then he got possible sinus infection just finished course of Augmentin past three nights have been excruciating at times, worst pain of his life he is now on Baclofen, Amitriptyline, Tegretol, Neurontin he says that Hydrocodone helps but no one prescribes it in the ED this morning they used Lidoderm patch and Klonopin and he has been doing well most of the day, just a twinge here or there he admits that he was increasing his meds at home without telling physician - increased Tegretol to 400mg BID, increased Amitriptyline to 50-75mg a night, would take 25mg at a time, increased Baclofen to 10mg BID he is hoping for another nerve block this week Allergies Allergy/AdvReac Type Severity Reaction Status Date / Time doxepin Allergy itchy Verified 11/04/19 08:11 amoxicillin [From Augmentin] AdvReac Intermediate diarrhea / Verified 11/04/19 08:11 hx c diff clavulanic acid AdvReac Intermediate diarrhea / Verified 11/04/19 08:11 [From Augmentin] hx c diff Home Medications Home Medications Medication Instructions Recorded Confirmed Type PreserVision AREDS-2 1 tab PO BID 07/19/18 11/04/19 History multivitamin 1 cap PO QAM 07/19/18 11/04/19 History testosterone 1 packet TRANSDERMAL DAILY 07/19/18 11/04/19 History denosumab 60 mg/mL subcutaneous 60 mg SUBCUT Q6MO ml 11/13/18 11/04/19 History syringe modafinil 200 mg tablet 200 mg PO DAILY PRN #90 tab 08/25/19 11/04/19 Rx gabapentin 300 mg capsule 300 mg PO TID #90 cap 09/05/19 11/04/19 Rx nortriptyline 50 mg PO HS 10/28/19 11/04/19 History sumatriptan succinate 100 mg PO UD #8 tab 10/28/19 11/04/19 Rx baclofen 5 mg PO BID 14 Days #28 tab 10/31/19 11/04/19 Rx hydrocortisone See Rx Instructions .ROUTE .COMPLEX 11/04/19 11/04/19 History levothyroxine [Euthyrox] 150 mcg PO QAM 11/04/19 11/04/19 History Past Med/Surg History Medical History Gout Hernia History of meningioma of the brain BASAL SKULL. PT HAS HAD MULTIPLE CRAINOTOMY PROCEDURES AND 2 GAMMA KNIFE PROCEDURES. CONTINUES TO FOLLOW WITH DR. GOMEZ (NEURO) Hypothyroidism Migraine Status post gamma knife treatment X2 Surgical History History of appendectomy History of blepharoplasty RIGHT EYE. History of cataract extraction with lens replacement History of craniotomy X4 INCLUDING GAMMA KNIFE SURGERY X2. 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 1996, 1997, 1998, 2001, AND 2002 History of eye surgery LEFT, R/T MUSCLE REPAIR History of hip surgery [place] PROCEDURE WITH DR. OTOOLE History of laminectomy L5 S1 History of surgery LEFT RING FINGER Family History Mother Hypertension Father Heart disease Social History Smoking Status: Never smoker Second Hand Exposure: No; Hx Alcohol Use: No Hx Substance Use: No Preferred Language: Ghanaian Communication Ability: Effective Health Services Rn Required: No Beliefs That Will Affect Care: None marital status: Current Living Situation: Alone current occupational status: unemployed Other Information That Helps Us Care for You: No Feels Safe at Home: Yes Safety Concerns: Feels Safe At This Time Review of Systems Review of Systems: All systems reviewed & are unremarkable except as noted in Subjective Neurologic: + radiating pain (intense burning, stabbing neuropathic pain, right trigeminal nerve) and + headache(s) (behind eyes, more on right side) Physical Exam Constitutional: WD/WN, vitals as above Eyes: PERRL, conjunctivae normal, anicteric sclerae ENMT: external ear and nose normal, oropharynx normal Neck: trachea midline, no thyromegaly Respiratory: normal respiratory effort, lungs clear to auscultation Cardiovascular: RRR, no murmur, no edema Gastrointestinal (Abdomen): normal bowel sounds, soft, nontender, no hepatosplenomegaly Musculoskeletal: no cyanosis or clubbing, extremities motor strength 5/5 Skin: no rashes, warm and dry Neurologic: patellar DTR's 2+ bilat, sensation intact and PERRL, EOMI, accommodation nl, no face palsy, no dysarthria Psychiatric: A+Ox3, euthymic affect Lymphatic: no cervical or axillary lymphadenopathy Results & Data Results & Data ([facility]) Vital Signs (Past 12 Hours) Vital Signs Temp Pulse Pulse Resp BP BP Pulse Ox 11/04/19 15:15 36.5 C 68 18 168/79 H 98 11/04/19 11:52 36.3 C L 66 18 120/80 98 11/04/19 09:39 60 11/04/19 08:09 63 14 139/95 98 11/04/19 08:00 36.5 C 61 16 142/87 H 100 11/04/19 07:04 64 62 16 134/92 100 11/04/19 06:18 70 16 141/87 H 100 Laboratory Results Laboratory Results - last 24 hr 11/04/19 11/04/19 06:56 06:56 WBC 8.29 RBC 3.79 L Hgb 11.6 L Hct 33.5 L MCV 88.4 MCH 30.6 MCHC 34.6 RDW Std Deviation 41.6 RDW Coeff of Oniel 12.9 Plt Count 242 MPV 8.4 Immature Gran % (Auto) 1.0 Neut % (Auto) 53.0 Lymph % (Auto) 31.5 Loup % (Auto) 12.7 Eos % (Auto) 1.6 Baso % (Auto) 0.2 Neut # (Auto) 4.40 Lymph # (Auto) 2.61 [place]oup # (Auto) 1.05 H Eos # (Auto) 0.13 Baso # (Auto) 0.02 Immature Gran # (Auto) 0.08 H Sodium 131 L Potassium 4.1 Chloride 97 L Carbon Dioxide 28 Anion Gap 6.0 BUN 15 Creatinine 0.86 Est Cr Clr Drug Dosing 107.5 Est GFR ( Amer) 107.0 Est GFR (Non-Af Amer) 92.3 BUN/Creatinine Ratio 17.8 Glucose 97 Calcium 8.6 Total Bilirubin 0.2 AST 18 ALT 33 Alkaline Phosphatase 51 Total Protein 6.9 Albumin 3.5 Globulin 3.4 Albumin/Globulin Ratio 1.0 TSH < 0.005 L Free T4 1.26 Medications Administered Current Inpatient Medications Acetaminophen (Tylenol) 650 mg PO Q4H PRN PRN Reason: Pain or Fever Stop: 12/04/19 09:20 Hydrocodone Bitart/Acetaminophen ([place] 5/325) 1 tab PO Q8 PRN PRN Reason: Pain Stop: 11/18/19 17:12 Baclofen (Lioresal) 10 mg PO BID [facility] Stop: 12/04/19 20:59 Last Admin: 11/04/19 20:12 Dose: 10 mg Documented by: Calcium Carbonate (Os-Liang 500) 1,250 mg PO DAILY [place] Stop: 12/04/19 09:20 Last Admin: 11/04/19 11:27 Dose: 1,250 mg Documented by: Carbamazepine (Tegretol) 200 mg PO TID [facility] Stop: 12/04/19 09:20 Last Admin: 11/04/19 20:15 Dose: 200 mg Documented by: Clonazepam (Klonopin) 0.25 mg PO Q8 PRN PRN Reason: Pain Stop: 12/04/19 17:11 Enoxaparin Sodium (Lovenox) 40 mg SQ Q24H [facility] Stop: 12/04/19 09:59 Last Admin: 11/04/19 11:27 Dose: 40 mg Documented by: Gabapentin (Neurontin) 400 mg PO TID [facility] Stop: 12/04/19 20:59 Last Admin: 11/04/19 20:20 Dose: 400 mg Documented by: Hydrocortisone (Cortef) 5 mg PO QPM [facility] Stop: 12/04/19 20:59 Last Admin: 11/04/19 20:12 Dose: 5 mg Documented by: Hydrocortisone (Cortef) 20 mg PO QAM [facility] Stop: 12/04/19 09:20 Last Admin: 11/04/19 11:24 Dose: 20 mg Documented by: Levothyroxine Sodium (Synthroid) 150 mcg PO DAILYBB [facility] Stop: 12/04/19 09:59 Last Admin: 11/04/19 11:27 Dose: 150 mcg Documented by: Kaylacellaneous (Remove Lidoderm Patch) 1 ea N/A DAILY@2100 [facility] Stop: 11/04/19 23:00 Last Admin: 11/04/19 20:15 Dose: 1 ea Documented by: Miscellaneous (Order Awaiting Action) 1 ea N/A QS [facility] Stop: 12/04/19 15:59 Last Admin: 11/04/19 17:04 Dose: Not Given Documented by: Nortriptyline HCl (Pamelor) 50 mg PO PM [place] Stop: 12/04/19 20:59 Last Admin: 11/04/19 20:20 Dose: 50 mg Documented by: Ondansetron HCl (Zofran) 4 mg IV Q6H PRN PRN Reason: Nausea Stop: 12/04/19 09:20 Code Status & VTE Plan VTE Prophylaxis Plan VTE Prophylaxis will be ordered: Yes PG Care Time/CCT Total # of Minutes Spent Total Time Spent: 40 Total Time Spent with Patient: Total time spent is greater than 50% in coordination of care (as documented) at patient's floor/unit and/or counseling patient: Coding Level of Care Code 59100 Initial Inpt Care Lvl 3 Diagnoses Trigeminal neuralgia G50.0 Migraine G43.909 Intractability: not intractable Migraine type: unspecified Status migrainosus presence: without status migrainosus Chronic headache R51 Sinusitis J32.9 (1) Migraine Intractability: not intractable Migraine type: unspecified Status migrainosus presence: without status migrainosus Qualified Code(s): G43.909 - Migraine, unspecified, not intractable, without status migrainosus
[2019-11-04] MEDS ORDERED: HYDROCODONE/ACETAMOPHEN 5/325MG TAB PO PRN (17:13)
[2019-11-04] MEDS: BACLOFEN 10 MG TAB PO SCH (20:12)
[2019-11-04] MEDS: GABAPENTIN 400 MG CAP PO SCH (20:20)
[2019-11-04] MEDS ORDERED: NORTRIPTYLINE HCL 25 MG CAP PO SCH ×2 (21:00)
[2019-11-04] MEDS ORDERED: HYDROCORTISONE 10 MG TAB PO SCH (21:00)
[2019-11-05] MEDS: LEVOTHYROXINE SODIUM 150 MCG TABLET PO SCH (06:00)
[2019-11-05] MEDS: carBAMazepine 200 MG TABLET PO SCH (08:46)
[2019-11-05] MEDS: HYDROCORTISONE 10 MG TAB PO SCH (08:47)
[2019-11-05] MEDS: CALCIUM CARBONATE 1250MG TAB PO SCH (08:47)
[2019-11-05] MEDS: BACLOFEN 10 MG TAB PO SCH (08:47)
[2019-11-05] MEDS: GABAPENTIN 400 MG CAP PO SCH (08:47)
--- NOTE | 2019-11-05 09:17 | Neurology Consultation ---
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 # Worsening trigeminal neuralgia: has received a nerve block and increased home medications already. Could try the following: - recommend giving phenytoin 1500mg IV over 2 hours - if no improvement with the phenytoin, could try lidocaine (500mg) IV over one hour; will require continuous cardiac monitoring and BP checks - Would continue the lidocaine patch prn as the preferred discharge medication (over opiates) as he has found this helpful (bridge until daily meds start working) - continue home medications at current doses (tegretol 400mg bid, baclofen 10mg bid, gabapentin 300mg tid, amitriptyline 50-75mg qhs). Will need tegretol level checked prior to discharge to ensure he is not supratherapeutic. Did discuss with him that these medications can take several weeks to start seeing the full effect. - recommend starting lamictal 50mg daily x 2 weeks, then 100mg daily for 2 weeks, than 200mg daily for 2 weeks, then 300mg daily for 2 weeks, then 400mg daily thereafter to see if this helps in combo with the tegretol. - recommend that is he continues to have [place] issues, to call the neurology office to discuss further possible changes with Dr Gomez - agree with going to the pain clinic to see if he would qualify for a repeat nerve block # Epilepsy: stable, no active issues # Migraines: reports that these are stable Thank you for this interesting consult. Plan of care discussed with primary team. Please call or text with questions. 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 In the ED, he received lidocaine patch and klonopin with improvement in symptoms. Labs showed normal CBC, hyponatremia with sodium 131, creatinine 0.6, glucose 97, calcium 8.6, LFTs within normal, TSH less than 0.005 with normal free T4. MRI brain from 10/31/2019 was independently reviewed and showed stable left frontotemporal encephalomalacia with stable lobulated, enhancing mass lesion around the sella with extension to bilateral cavernous sinuses and encasing the internal carotid arteries at the skull base. No new contrast- enhancing or other lesion noted. Reported to admitting provider that he has increased his home medications independently: Tegretol 400 mg twice daily, amitriptyline 50-75 mg qhs, baclofen 10 mg bid. He had just received a letter more from Dr. Yousif 3 weeks ago that worked well for 2 weeks and then had increasing head pain associated with a sinus infection (just finished Augmentin). He is also on chronic steroids at home, as well as gabapentin 300 mg tid. He received a Lidoderm patch and Klonopin in the ED with improvement in his pain. Was asking about getting opiates like hydrocodone since it has been helpful but does note that his home tramadol has not been touching the pain at all. Allergies Allergy/AdvReac Type Severity Reaction Status Date / Time doxepin Allergy itchy Verified 11/04/19 08:11 amoxicillin [From Augmentin] AdvReac Intermediate diarrhea / Verified 11/04/19 08:11 hx c diff clavulanic acid AdvReac Intermediate diarrhea / Verified 11/04/19 08:11 [From Augmentin] hx c diff Home Medications Home Medications Medication Instructions Recorded Confirmed Type PreserVision AREDS-2 1 tab PO BID 07/19/18 11/04/19 History multivitamin 1 cap PO QAM 07/19/18 11/04/19 History testosterone 1 packet TRANSDERMAL DAILY 07/19/18 11/04/19 History denosumab 60 mg/mL subcutaneous 60 mg SUBCUT Q6MO ml 11/13/18 11/04/19 History syringe modafinil 200 mg tablet 200 mg PO DAILY PRN #90 tab 08/25/19 11/04/19 Rx gabapentin 300 mg capsule 300 mg PO TID #90 cap 09/05/19 11/04/19 Rx nortriptyline 50 mg PO HS 10/28/19 11/04/19 History sumatriptan succinate 100 mg PO UD #8 tab 10/28/19 11/04/19 Rx baclofen 5 mg PO BID 14 Days #28 tab 10/31/19 11/04/19 Rx hydrocortisone See Rx Instructions .ROUTE .COMPLEX 11/04/19 11/04/19 History levothyroxine [Euthyrox] 150 mcg PO QAM 11/04/19 11/04/19 History Patient History Medical History Gout Hernia History of meningioma of the brain BASAL SKULL. PT HAS HAD MULTIPLE CRAINOTOMY PROCEDURES AND 2 GAMMA KNIFE PROCEDURES. CONTINUES TO FOLLOW WITH DR. GOMEZ (NEURO) Hypothyroidism Migraine Status post gamma knife treatment X2 Surgical History History of appendectomy History of blepharoplasty RIGHT EYE. History of cataract extraction with lens replacement History of craniotomy X4 INCLUDING GAMMA KNIFE SURGERY X2. 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 1996, 1997, 1998, 2001, AND 2002 History of eye surgery LEFT, R/T MUSCLE REPAIR History of hip surgery [place] PROCEDURE WITH DR. OTOOLE History of laminectomy L5 S1 History of surgery LEFT RING FINGER Family History Mother Hypertension Father Heart disease Social History Smoking Status: Never smoker Second Hand Exposure: No; Hx Alcohol Use: No Hx Substance Use: No Preferred Language: Burundian Communication Ability: Effective Industry Consultant Required: No Beliefs That Will Affect Care: None marital status: Current Living Situation: Alone current occupational status: unemployed Other Information That Helps Us Care for You: No Feels Safe at Home: Yes Safety Concerns: Feels Safe At This Time Review of Systems Review of Systems: 14 point review of systems completed and negative except as in HPI. Exam (Neuro) Physical Exam: General Exam: GEN: NAD, sitting in chair. HEENT: No conjunctival injection, no rhinorrhea. CV: RRR, no peripheral edema PULM: Nonlabored respirations on room air. Neuro Exam: MS: Awake and Alert. Oriented to person, place, and date. Speech fluent and appropriate without dysarthria or paraphasic errors. Language intact including naming, comprehension, repetition. Cognition and memory grossly intact. Attention intact. No neglect. CN: Visual sullivan full. No extinction to double simultaneous stimuli. Unable to visualize fundi fully on fundoscopic exam. PERRLA OU. EOMI except for inability to bury the sclera in the right eye on lateral gaze, left eye esotropia at rest, no nystagmus. Facial sensation intact to LT. Facial muscles full and symmetric. Hearing intact to conversation. Uvula midline with symmetric palatal elevation. Shoulder shrug normal. Tongue midline. Facial palpation did not trigger trigeminal sensation/neuropathic pain. MOTOR: Normal bulk and tone. No pronator drift. BUE strength 5/5 at deltoids, biceps, triceps, wrist flexors and extensors, and hand grasp bilaterally. BLE strength 5/5 at iliopsoas, hamstrings, quadriceps, tibialis anterior, and gastrocnemius bilaterally. REFLEXES: 2+ at biceps, triceps, brachioradialis, 2+ patella and trace Achilles bilaterally. Flexor plantar responses bilaterally. SENSORY: Intact to LT without extinction to double simultaneous stimuli. Vibration intact throughout. COORDINATION: No dysmetria or ataxia on [id number] bilaterally. Normal Yaritza bilaterally. GAIT: deferred given physical status Results & Data ([facility]) Vital Signs (Past 12 Hours) Vital Signs Temp Pulse Pulse Resp BP BP Pulse Ox 11/05/19 07:30 64 11/05/19 07:16 36.4 C L 63 18 137/87 98 11/05/19 03:05 36.6 C 59 L 20 124/69 93 11/05/19 00:30 73 11/04/19 22:00 36.6 C 75 20 136/76 96 PG Care Time/CCT Total # of Minutes Spent Total Time Spent with Patient: Total time spent is greater than 50% in coordination of care (as documented) at patient's floor/unit and/or counseling patient: Coding Level of Care Code 23446 Initial Inpt Care Lvl 3 Diagnoses Chronic headache R51 Hypothyroidism E03.9 Complex partial seizure G40.209 Depression F32.9 Trigeminal neuralgia G50.0
[2019-11-05] MEDS ORDERED: SODIUM CHLORIDE 0.9% 10ML FLUSH IV STA (10:56)
[2019-11-05] MEDS ORDERED: PHENYTOIN IV SCH (11:00)
[2019-11-05] MEDS ORDERED: 0.2 MICRON FILTER SET 1 EA IV ONE (11:15)
[2019-11-05] MEDS ORDERED: PHENYTOIN 1,500 MG in 0.9 % SODIUM CHLORIDE 100 ML IV ONE (11:15)
[2019-11-05] MEDS: ENOXAPARIN INJ 40 MG/0.4 ML SYR SQ SCH (11:54)
--- NOTE | 2019-11-08 10:28 | Discharge Summary ---
Date of Service November 05, 2019 Admission HPI Per Admitting Provider Patient presents with ongoing symptoms of trigeminal neuralgia. This is his third trip to the ED this week and admission requested due to intractable pain, consideration for pain management consult. Patient has history of meningioma that was operated on twice in the past, most recent was 2002. Received gamma knife therapy. He was evaluated for clinical trial at [facility] but was not accepted. He follows locally with Dr. Mandujano who treats him for his trigeminal neuralgia. He has also seen Dr. Carrizales h/o such, first episode was 5 years ago, went away for some time returned about 6 weeks ago, he has been treated with Carbamazepine and Neurontin symptoms would wax and wane, more intense at night at the worst it is more than a 10 out of 10, feels like 20 out of 10 pain, burning, nothing feels like it 3 weeks ago he saw Dr. Carrizales for nerve block, worked well for 2 weeks, then he got possible sinus infection just finished course of Augmentin past three nights have been excruciating at times, worst pain of his life he is now on Baclofen, Amitriptyline, Tegretol, Neurontin he says that Hydrocodone helps but no one prescribes it in the ED this morning they used Lidoderm patch and Klonopin and he has been doing well most of the day, just a twinge here or there he admits that he was increasing his meds at home without telling physician - increased Tegretol to 400mg BID, increased Amitriptyline to 50-75mg a night, would take 25mg at a time, increased Baclofen to 10mg BID he is hoping for another nerve block this week Principal Diagnosis Intractable pain from trigeminal neuralgia Discharge Exam Constitutional WD/WN, vitals as above Eyes PERRL, conjunctivae normal, anicteric sclerae ENMT external ear and nose normal, oropharynx normal Neck trachea midline, no thyromegaly Respiratory normal respiratory effort, lungs clear to auscultation Cardiovascular RRR, no murmur, no edema Gastrointestinal (Abdomen) normal bowel sounds, soft, nontender, no hepatosplenomegaly Musculoskeletal no cyanosis or clubbing, extremities motor strength 5/5 Skin no rashes, warm and dry Neurologic patellar DTR's 2+ bilat, sensation intact and PERRL, EOMI, accommodation nl, no face palsy, no dysarthria Psychiatric A+Ox3, euthymic affect Lymphatic no cervical or axillary lymphadenopathy Discharge Data Allergies Allergy/AdvReac Type Severity Reaction Status Date / Time doxepin Allergy itchy Verified 11/09/19 08:28 amoxicillin [From Augmentin] AdvReac Intermediate diarrhea / Verified 11/09/19 08:28 hx c diff clavulanic acid AdvReac Intermediate diarrhea / Verified 11/09/19 08:28 [From Augmentin] hx c diff Consultations 11/04/19 07:39 ED Decision to Admit Stat 11/04/19 09:21 Consult Neurology Routine Hospital Course (1) Trigeminal neuralgia: h/o such, first episode was 5 years ago, went away for some time returned about 6 weeks ago, he has been treated with Carbamazepine and Neurontin symptoms would wax and wane, more intense at night 3 weeks ago he saw Dr. Carrizales for nerve block, worked well for 2 weeks, then he got possible sinus infection just finished course of Augmentin past three nights have been excruciating at times, worst pain of his life he is now on Baclofen, Amitriptyline, Tegretol, Neurontin he says that Hydrocodone helps but no one prescribes it in the ED this morning they used Lidoderm patch and Klonopin and he has been doing well most of the day, just a twinge here or there he admits that he was increasing his meds at home without telling physician - increased Tegretol to 400mg BID, increased Amitriptyline to 50-75mg a night, would take 25mg at a time, increased Baclofen to 10mg BID he is hoping for another nerve block this week appreciate consult from Dr. Herrera, made the below recommendations to manage pain Tegretol (carbamazepine) 400mg twice a day, level was normal here in hospital Baclofen 10mg twice a day Neurontin 300mg three times a day Nortriptyline 50mg at bedtime start on Lamictal 50mg daily for 2 weeks, then increase to 100mg x 2 weeks, then 200mg x 2 weeks, then 300mg x 2 weeks and finally 400mg daily if pain gets intense, apply Lidocaine patch for 12 hours for breakthrough pain use a dose of Klonopin 0.25mg and [place] 5/325mg, can take them together if pain severe follow up with PCP in a week, follow up with Dr. Mandujano in one month (2) Migraine: no recent migraines uses Sumatriptan PRN (3) Chronic headache: see above (4) Sinusitis: recently completed a course of Augmentin no further sinus symptoms Total Time Total Time Spent Total Time Spent (In Minutes): 25 minutes Total Time Includes: Examination of the Patient, Discharge Planning, Medication Reconciliation and Communication With Other Providers (Dr. Herrera) Discharge Plan Discharge Items Patient Disposition: Home - Self-Care Reason For Visit: INTRACTABLE PAIN, TRIGEMINAL NEURALGIA Discharge Diagnosis: Trigeminal neuralgia Intractable pain Goals: follow up with pain management for pain control follow up with Dr. Mandujano in one month Activity: Resume your previous activity Driving/Machine Use: do not drive after taking [place] Weightbearing: Full weightbearing Non-emergency contact: Primary Care Provider and Neurologist Call non-emergency contact if: you have any medication questions, your pain is not controlled and your pain is worsening Follow-up/Referrals: Pradeep Mandujano MD [Physician] - (4 weeks) Wilfred Minor III, MD [Primary Care Provider] - (one week) Arnold Carrizales MD, FI [Anesthesiologist] - (1 week) Diet: Regular Addtl Attending Provider Instructions: Medications: some are listed as new medications even if you were already taking, this is because they were not on medication list on admission Trigeminal neuralgia: pain is better, here is the plan Tegretol (carbamazepine) 400mg twice a day, level was normal here in hospital Baclofen 10mg twice a day Neurontin 300mg three times a day Nortriptyline 50mg at bedtime start on Lamictal 50mg daily for 2 weeks, then increase to 100mg x 2 weeks, then 200mg x 2 weeks, then 300mg x 2 weeks and finally 400mg daily I gave you a script for 14 days at 50mg, either Dr. Mandujano or Dr. Minor can prescribe further if pain gets intense, apply Lidocaine patch for 12 hours for breakthrough pain use a dose of Klonopin 0.25mg and [place] 5/325mg, can take them together if pain severe follow up with Dr. Minor in one week referral made for Dr. Carrizales at pain management, unsure if it is too soon for repeat injection, his office should reach out to you follow up with Dr. Mandujano in one month Pending Studies at Discharge: No Stand-Alone Forms: My [facility] Ditto, Smoking Cessation Medications and DC Order Prescriptions: New clonazepam 0.5 mg Tablet 0.25 mg PO DAILY PRN (Reason: trigeminal neuralgia pain) 7 Days Qty: 7 RF: 0 carbamazepine 200 mg Tablet 400 mg PO BID 30 Days Qty: 120 RF: 3 hydrocodone-acetaminophen 5-325 mg tablet 1 tab PO Q12H PRN (Reason: pain) Qty: 10 RF: 0 lidocaine 5 % adhesive patch,medicated 1 patch TOP DAILY PRN (Reason: pain) Qty: 15 RF: 0 Continued gabapentin 300 mg capsule 300 mg PO TID Qty: 90 RF: 2 modafinil 200 mg tablet 200 mg PO DAILY PRN (Reason: PRN) Qty: 90 RF: 1 multivitamin Capsule 1 cap PO QAM RF: 0 testosterone 1 % (50 mg/5 gram) Gel In Packet 1 packet TRANSDERMAL DAILY RF: 0 PreserVision AREDS-2 [id number] Capsule 1 tab PO BID RF: 0 Prolia 60 mg/mL syringe 60 mg SUBCUT [id number] RF: 0 sumatriptan succinate 100 mg tablet 100 mg PO UD Qty: 8 RF: 0 levothyroxine [Euthyrox] 150 mcg tablet 150 mcg PO QAM RF: 0 hydrocortisone 10 mg tablet See Rx Instructions .ROUTE .COMPLEX RF: 0 Discontinued baclofen 5 mg tablet 5 mg PO BID 14 Days Qty: 28 RF: 0 No Action nortriptyline 25 mg capsule 50 mg PO HS Qty: 60 RF: 3 baclofen 10 mg tablet 10 mg PO BID 30 Days Qty: 120 RF: 3 lamotrigine [Lamictal] 25 mg tablet 25 mg PO .COMPLEX 30 Days Qty: 100 RF: 0 Discharge Orders: Discharge Order (Routine); Ordered 11/05/19 Ordered By: Ralph Hernandez Admission Data Admit Date/Time: 11/04/19 07:46 Attending Provider: Ralph Hernandez Admit Provider: Ralph Hernandez Primary Care Provider: Wilfred Minor III Other Providers: Ralph Hernandez ; Lulú Herrera Other Interventions: Discharge Summary Assessment (RN) Last Done: 11/05/19 13:03 Coding Level of Care Code 03575 OBS Care - Discharge Diagnoses Trigeminal neuralgia G50.0 Migraine G43.909 Intractability: not intractable Migraine type: unspecified Status migrainosus presence: without status migrainosus Chronic headache R51 Sinusitis J32.9
== END 2019-11-05 13:27 | disposition home or self-care (01) ==
LOC: ED 06:12 → 2N 07:46 → INTOOBSV 07:46 → OBSVTOIN 07:46 → 2N 08:22 → OBSVTOIN 11-05 10:01

== ENCOUNTER 2019-12-08 15:28 | Inpatient (IN) ==
[2019-12-08 16:41] LABS: Basophils # (auto) 0.03 K/uL (0-0.2); Basophils % (auto) 0.3 %; Eosinophils # (auto) 0.07 K/uL (0-0.5); Eosinophils % (auto) 0.8 %; Hematocrit (blood only) 35.5 % (42-52); Immature Granulocytes # (auto) 0.03 K/uL (0.00-0.02); Immature Granulocytes % (auto) 0.3 %; Lymphocytes # (auto) 1.32 K/uL (1.2-3.4); Lymphocytes % (auto) 14.9 %; Mean Corpuscular Hemoglobin 29.2 pg (25-34); Mean Corpuscular Hgb Conc 33.8 g/dL (32-36); Mean Corpuscular Volume 86.4 fL (80-100); Mean Platelet Volume 8.3 fL (7.4-10.4); Monocytes # (auto) 1.05 K/uL (0.11-0.59); Monocytes % (auto) 11.9 %; Neutrophils # (auto) 6.35 K/uL (1.4-6.5); Neutrophils % (auto) 71.8 %; Platelet Count 334 K/uL (130-400); RDW Coefficient of Variation 13.5 % (11.5-14.5); RDW Standard Deviation 42.8 fL (36.4-46.3); Red Blood Count 4.11 M/uL (4.7-6.1); White Blood Count 8.85 K/uL (4.8-10.8)
[2019-12-08] MEDS ORDERED: SODIUM CHLORIDE 0.9% 1000ML 1,000 ML IV SCH (16:45)
--- NOTE | 2019-12-08 16:54 | XRay Report ---
XR chest 1V portable CLINICAL HISTORY: Fever COMPARISON STUDY: Chest radiograph November 20, 2019. FINDINGS: Lung volumes are normal. Lungs are clear. There is no pneumothorax or pleural effusion. Car diac size is normal. Mediastinal contours are normal. There is no evidence for pulmonary edema. Right PICC is in place. Incidental note is made of multiple old bilateral rib fractures. IMPRESSION: No acute cardiopulmonary findings. ACT 112: Negative or not required by law. Electronically signed by: Zac Klein M.D. 12/08/2019 4:53 PM
[2019-12-08 16:58] LABS: Albumin Level 2.6 gm/dl (3.4-5.0); BUN Creatinine Ratio 9.9 (10-20); Calcium 7.3 mg/dl (8.5-10.1); Est GFR (African American) 94.7; Est GFR (Non-African American) 81.7; Potassium 3.2 mmol/L (3.5-5.1)
[2019-12-08 17:01] LABS: Albumin Globulin Ratio 0.6 (0.9-2); Bilirubin,Total 0.8 mg/dl (0.2-1); Globulin 4.4 gm/dl (2.5-4.0)
--- NOTE | 2019-12-08 17:02 | Emergency Department Note ---
History of Present Illness General Chief complaint: Fever Stated complaint: FEVER Time Seen by Provider: 12/08/19 16:31 Source: patient Mode of arrival: EMS Limitations: no limitations and other History of Present Illness Provider complaint: Fever Onset (ago): day(s) 5 Associated symptoms: + malaise This is a 64-year-old male who presents the emergency department from rehab facility following 4 to 5 days of fevers. Patient states he is noticed in the last several days he had fevers and chills and felt increasingly tired. Patient states he had a slight sore throat, however denied any other focal symptoms or complaints. Patient does have an indwelling pack that he states he is getting medication through yet. Patient states he has an indwelling Dunn catheter, does not recall how long that has been in. Notes accompanying the patient from evaluation today state that he was admitted there on November 19 for blood cultures were positive with staph aureus, and as a result of this he is getting nafcillin every 4 hours through the PICC line. 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 It appears patient also had dysphasia and had an NG tube i n place, patient does not have an NG tube in place currently. Patient has previously had a feeding tube, he states this was removed. Patient had an evaluation with outpatient labs, and had blood cultures on November 20 that showed no growth. Patient developed a fever again on November 27 and had outpatient labs, chest x-ray, urinalysis and blood cultures which per the report were all negative. Patient's PICC line had originally been placed on October 29. Patient had complained of left knee pain, had an x-ray and orthopedic consult which was aspirated and consistent with inflammatory arthritis, patient was started on colchicine. Due to patient's complaint of sore throat and some questionable accompanying tooth aches, patient had an outpatient CT Panorex that was negative for dental caries. Patient is on multiple chronic medications, including enoxaparin, aspirin, and Plavix. Patient also has a seizure disorder and is on carbamazepine, and lamotrigine. Patient denies any ulcerations, rashes, or sores. Per the records patient was tested for coronavirus on November 20 which was negative. Pt seen during a time of high acuity and national emergency pandemic while wearing PPE. Home Medications Home Medications Medication Instructions Recorded Confirmed Type gabapentin 300 mg capsule 300 mg PO TID #90 cap 09/05/19 12/08/19 Rx levothyroxine [Euthyrox] 150 mcg PO QAM 11/04/19 12/08/19 History carbamazepine 400 mg PO BID 30 Days #120 tab 11/05/19 12/08/19 Rx nortriptyline 25 mg capsule 50 mg PO HS #60 cap 11/09/19 12/08/19 Rx lamotrigine [Lamictal] 75 mg PO HS 11/20/19 12/08/19 History Lactobacillus acidoph-L.bulgar 1 tab PO DAILY 12/08/19 12/08/19 History [Floranex] acetaminophen 650 mg PO Q4H PRN 12/08/19 12/08/19 History aspirin 81 mg PO DAILY 12/08/19 12/08/19 History atorvastatin 40 mg PO DAILY 12/08/19 12/08/19 History baclofen 10 mg PO BID 12/08/19 12/08/19 History baclofen 10 mg PO BID PRN 12/08/19 12/08/19 History benzocaine-menthol 1 josi PO Q2H PRN 12/08/19 12/08/19 History clopidogrel 75 mg PO DAILY 12/08/19 12/08/19 History docusate sodium 100 mg PO BID 12/08/19 12/08/19 History enoxaparin 40 mg SUBCUT DAILY 12/08/19 12/08/19 History ergocalciferol (vitamin D2) 50,000 unit PO DIRECTED 12/08/19 12/08/19 History famotidine 40 mg PO HS 12/08/19 12/08/19 History hydrocodone-acetaminophen [[place]] 1 tab PO BID PRN 12/08/19 12/08/19 History hydrocortisone 25 mg PO DAILY 12/08/19 12/08/19 History hydrocortisone [Cortef] 5 mg PO DAILY 12/08/19 12/08/19 History lamotrigine [Lamictal] 50 mg PO QAM 12/08/19 12/08/19 History nafcillin [Nallpen] 2 g IV Q4H 12/08/19 12/08/19 History tamsulosin 0.4 mg PO QDD 09/11/20 09/11/20 History tizanidine [Zanaflex] 4 mg PO Q6H PRN 12/08/19 12/08/19 History Allergies Allergy/AdvReac Type Severity Reaction Status Date / Time doxepin Allergy itchy Verified 11/20/19 14:01 amoxicillin [From Augmentin] AdvReac Intermediate diarrhea / Verified 11/20/19 14:01 hx c diff clavulanic acid AdvReac Intermediate diarrhea / Verified 11/20/19 14:01 [From Augmentin] hx c diff Past Med/Surg History Medical History Gout Hernia History of meningioma of the brain BASAL SKULL. PT HAS HAD MULTIPLE CRAINOTOMY PROCEDURES AND 2 GAMMA KNIFE PROCEDURES. CONTINUES TO FOLLOW WITH DR. GOMEZ (NEURO) Hypothyroidism Migraine Status post gamma knife treatment X2 Surgical History History of appendectomy History of blepharoplasty RIGHT EYE. History of cataract extraction with lens replacement History of craniotomy X4 INCLUDING GAMMA KNIFE SURGERY X2. 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 1996, 1997, 1998, 2001, AND 2002 History of eye surgery LEFT, R/T MUSCLE REPAIR History of hip surgery [place] PROCEDURE WITH DR. OTOOLE History of laminectomy L5 S1 History of surgery LEFT RING FINGER Family History Mother Hypertension Father Heart disease Social History Smoking Status: Never smoker Second Hand Exposure: No; Hx Alcohol Use: No Hx Substance Use: No Preferred Language: Mauritanian Communication Ability: Effective Herbologist Required: No Beliefs That Will Affect Care: None marital status: Current Living Situation: Alone current occupational status: unemployed Feels Safe at Home: Yes Review of Systems See HPI for pertinent positives & negatives. and A total of 10 systems reviewed and were otherwise negative Physical Exam Vital Signs Vital Signs - 24 hr 12/08/19 15:35 12/08/19 15:52 12/08/19 17:20 Temperature 36.7 C Temperature Source Oral Pulse Rate 87 88 84 Pulse Rate from SpO2 Sensor 87 84 Respiratory Rate 16 18 16 Respiratory Effort / Characteristics Non-Labored Spontaneous Respiratory Depth Normal Respiratory Pattern Regular Blood Pressure 132/83 132/83 116/85 Blood Pressure Mean 97 99 90 Blood Pressure Position Lying Pulse Oximetry 97 97 99 Oxygen Delivery Method Room Air Sepsis Recent Fever Within 48 Hours No Sepsis New/Unexplained Change in Mental Status No Sepsis Action Taken by Nursing No Action Required 12/08/19 17:26 12/08/19 17:30 12/08/19 18:00 Temperature Temperature Source Pulse Rate 84 83 Pulse Rate from SpO2 Sensor 84 Respiratory Rate 23 16 Respiratory Effort / Characteristics Respiratory Depth Respiratory Pattern Blood Pressure 120/84 124/81 Blood Pressure Mean 89 85 Blood Pressure Position Pulse Oximetry 99 99 100 Oxygen Delivery Method Sepsis Recent Fever Within 48 Hours Sepsis New/Unexplained Change in Mental Status Sepsis Action Taken by Nursing 12/08/19 18:30 12/08/19 20:00 12/08/19 20:30 Temperature Temperature Source Pulse Rate 85 86 88 Pulse Rate from SpO2 Sensor 85 86 88 Respiratory Rate 18 18 18 Respiratory Effort / Characteristics Respiratory Depth Respiratory Pattern Blood Pressure 108/71 Blood Pressure Mean 83 Blood Pressure Position Pulse Oximetry 100 100 99 Oxygen Delivery Method Sepsis Recent Fever Within 48 Hours Sepsis New/Unexplained Change in Mental Status Sepsis Action Taken by Nursing 12/08/19 20:36 12/08/19 21:00 12/08/19 21:28 Temperature 37.4 C Temperature Source Oral Pulse Rate 87 88 Pulse Rate from SpO2 Sensor 87 89 Respiratory Rate 16 16 Respiratory Effort / Characteristics Respiratory Depth Respiratory Pattern Blood Pressure 160/90 H Blood Pressure Mean 97 Blood Pressure Position Pulse Oximetry 99 100 Oxygen Delivery Method Sepsis Recent Fever Within 48 Hours Sepsis New/Unexplained Change in Mental Status Sepsis Action Taken by Nursing 12/08/19 21:30 12/08/19 22:01 Temperature Temperature Source Pulse Rate 89 92 H Pulse Rate from SpO2 Sensor 90 92 H Respiratory Rate 16 20 Respiratory Effort / Characteristics Respiratory Depth Respiratory Pattern Blood Pressure 150/91 H 149/91 H Blood Pressure Mean 100 104 Blood Pressure Position Pulse Oximetry 99 98 Oxygen Delivery Method Sepsis Recent Fever Within 48 Hours Sepsis New/Unexplained Change in Mental Status Sepsis Action Taken by Nursing GENERAL: alert, unwell appearing, well nourished, no distress, non-toxic EYE EXAM: normal conjunctiva, PERRL and EOM's grossly intact OROPHARYNX: no exudate, no erythema, lips, buccal mucosa, and tongue normal and mucous membranes are dry, no tonsillar hypertrophy or exudate. No mucocutaneous lesions. NECK: supple, no nuchal rigidity, no adenopathy, non-tender LUNGS: Clear to auscultation. Normal chest wall mechanics, no w/r/r HEART: no murmurs, S1 normal and S2 normal ABDOMEN: abdomen soft, non-tender, normo-active bowel sounds, no masses, no rebound or guarding. Scar from prior feeding tube. Indwelling Dunn catheter with clear yellow urine in the bag. BACK: Back is symmetrical on inspection and there is no deformity, no midline tenderness, no CVA tenderness. SKIN: no rashes and no bruising, no petechiae UPPER EXTREMITIES: upper extremities are grossly normal. FROM, nml pulses b/l. LOWER EXTREMITIES: No pitting edema. Normal range of motion to the right upper extremity, no movement to the left upper extremity. PICC line noted in the proximal right upper extremity, well appearing, no surrounding erythema. Normal distal pulses bilateral upper extremities. NEURO EXAM: Normal sensorium, cranial nerves II-XII grossly intact, left-sided hemiparesis, right upper and lower extremities are weak but patient does have full range of motion. Left facial droop noted. Mild dysarthria. Gross sensation intact. Course Course 1716: Discussed with Dr. Moon, who came to bedside to evaluate the patient. 1944: VS stable, pt resting. 2144: Case discussed with Dr. Zamarripa. Administered Medications Discontinued Medications Sodium Chloride (Nss 1000ml) 1,000 mls @ 999 mls/hr IV .Q1H1M [place] Stop: 12/08/19 17:45 Last Infusion: 12/08/19 20:15 Dose: 0 mls/hr Documented by: [id number] Admin: 12/08/19 19:13 Dose: 999 mls/hr Documented by: [id number] Cefepime HCl (Maxipime) 2,000 mg in 20 mls @ 5 mls/min IV NOW STA Stop: 12/08/19 21:29 Last Admin: 12/08/19 21:35 Dose: 5 mls/min Documented by: [id number] Vancomycin HCl 1,750 mg/ (Sodium Chloride) 535 mls @ 200 mls/hr IV NOW ONE Stop: 12/09/19 00:32 Last Admin: 12/08/19 22:50 Dose: 200 mls/hr Documented by: [id number] Ioversol (Ioversol 100ml) 93 ml IV ONCE ONE Stop: 12/08/19 19:36 Last Admin: 12/08/19 19:35 Dose: 93 ml Documented by: [id number] Medical Decision Making Differential Diagnosis Differential diagnosis: Etiologies such as viral syndrome, otitis, pharyngitis, pneumonia, influenza, meningitis, urinary tract infection, sepsis, bacteremia, as well as others were entertained. Medical Records Attestation: I reviewed the patient's medical records. Home Medications Current Medication List: was personally reviewed by me Laboratory Data Attestation: I reviewed the patient's lab results. Result diagrams: 12/08/19 16:27 12/08/19 16:27 Lab Results 12/08/19 12/08/19 12/08/19 Range/Units 16:27 16:27 16:27 WBC 8.85 (4.8-10.8) K/uL RBC 4.11 L (4.7-6.1) M/uL Hgb 12.0 L (14.0-18.0) g/dL Hct 35.5 L (42-52) % MCV 86.4 (80-100) fL MCH 29.2 (25-34) pg MCHC 33.8 (32-36) g/dL RDW Std Deviation 42.8 (36.4-46.3) fL RDW Coeff of Oniel 13.5 (11.5-14.5) % Plt Count 334 (130-400) K/uL MPV 8.3 (7.4-10.4) fL Immature Gran % (Auto) 0.3 % Neut % (Auto) 71.8 % Lymph % (Auto) 14.9 % [place] % (Auto) 11.9 % Eos % (Auto) 0.8 % Baso % (Auto) 0.3 % Neut # (Auto) 6.35 (1.4-6.5) K/uL Lymph # (Auto) 1.32 (1.2-3.4) K/uL [place] # (Auto) 1.05 H (0.11-0.59) K/uL Eos # (Auto) 0.07 (0-0.5) K/uL Baso # (Auto) 0.03 (0-0.2) K/uL Immature Gran # (Auto) 0.03 H (0.00-0.02) K/uL PT 14.7 H (9.0-12.0) Seconds INR 1.4 H (0.9-1.1) APTT 44.5 H (21.0-31.0) Seconds PTT Ratio 1.6 Sodium 139 (136-145) mmol/L Potassium 3.2 L (3.5-5.1) mmol/L Chloride 109 H (98-107) mmol/L Carbon Dioxide 21 (21-32) mmol/L Anion Gap 9.0 (3-11) BUN 10 (7-18) mg/dl Creatinine 0.98 (0.6-1.4) mg/dl Est Cr Clr Drug Dosing 89.0 ml/min Est GFR ( Amer) 94.7 Est GFR (Non-Af Amer) 81.7 BUN/Creatinine Ratio 9.9 L (10-20) Glucose 119 H (70-99) mg/dl Lactate (0.4-2.0) mmol/L Calcium 7.3 L (8.5-10.1) mg/dl Magnesium (1.8-2.4) mg/dl Total Bilirubin 0.8 (0.2-1) mg/dl AST 28 (15-37) U/L ALT 30 (12-78) U/L Alkaline Phosphatase 36 L (45-117) U/L Troponin I (0-0.045) ng/ml Total Protein 7.0 (6.4-8.2) gm/dl Albumin 2.6 L (3.4-5.0) gm/dl Globulin 4.4 H (2.5-4.0) gm/dl Albumin/Globulin Ratio 0.6 L (0.9-2) Procalcitonin (0-0.5) ng/ml TSH (0.300-4.500) uIu/ml Free T4 (0.8-1.6) ng/dl Urine Color Urine Appearance (Clear) Urine pH (4.5-7.5) Ur Specific [place] (1.000-1.030) Urine Protein (Negative) Urine Glucose (UA) (Negative) Urine Ketones (Negative) Urine Blood (Negative) Urine Nitrite (Negative) Urine Bilirubin (Negative) Urine Urobilinogen (Negative) Ur Leukocyte Esterase (Negative) Urine RBC (0-4) /hpf Urine WBC (0-5) /hpf Ur Epithelial Cells (0-5) /lpf Urine Bacteria (Negative) Carbamazepine (4-12) mcg/ml COVID-19 Eval Order COVID-19 PCR (Negative) 12/08/19 12/08/19 12/08/19 Range/Units 16:27 16:27 16:27 WBC (4.8-10.8) K/uL RBC (4.7-6.1) M/uL Hgb (14.0-18.0) g/dL Hct (42-52) % MCV (80-100) fL MCH (25-34) pg MCHC (32-36) g/dL RDW Std Deviation (36.4-46.3) fL RDW Coeff of Oniel (11.5-14.5) % Plt Count (130-400) K/uL MPV (7.4-10.4) fL Immature Gran % (Auto) % Neut % (Auto) % Lymph % (Auto) % [place] % (Auto) % Eos % (Auto) % Baso % (Auto) % Neut # (Auto) (1.4-6.5) K/uL Lymph # (Auto) (1.2-3.4) K/uL [place] # (Auto) (0.11-0.59) K/uL Eos # (Auto) (0-0.5) K/uL Baso # (Auto) (0-0.2) K/uL Immature Gran # (Auto) (0.00-0.02) K/uL PT (9.0-12.0) Seconds INR (0.9-1.1) APTT (21.0-31.0) Seconds PTT Ratio Sodium (136-145) mmol/L Potassium (3.5-5.1) mmol/L Chloride (98-107) mmol/L Carbon Dioxide (21-32) mmol/L Anion Gap (3-11) BUN (7-18) mg/dl Creatinine (0.6-1.4) mg/dl Est Cr Clr Drug Dosing ml/min Est GFR ( Amer) Est GFR (Non-Af Amer) BUN/Creatinine Ratio (10-20) Glucose (70-99) mg/dl Lactate (0.4-2.0) mmol/L Calcium (8.5-10.1) mg/dl Magnesium 2.4 (1.8-2.4) mg/dl Total Bilirubin (0.2-1) mg/dl AST (15-37) U/L ALT (12-78) U/L Alkaline Phosphatase (45-117) U/L Troponin I < 0.015 (0-0.045) ng/ml Total Protein (6.4-8.2) gm/dl Albumin (3.4-5.0) gm/dl Globulin (2.5-4.0) gm/dl Albumin/Globulin Ratio (0.9-2) Procalcitonin 0.14 (0-0.5) ng/ml TSH < 0.005 L (0.300-4.500) uIu/ml Free T4 1.08 (0.8-1.6) ng/dl Urine Color Urine Appearance (Clear) Urine pH (4.5-7.5) Ur Specific [place] (1.000-1.030) Urine Protein (Negative) Urine Glucose (UA) (Negative) Urine Ketones (Negative) Urine Blood (Negative) Urine Nitrite (Negative) Urine Bilirubin (Negative) Urine Urobilinogen (Negative) Ur Leukocyte Esterase (Negative) Urine RBC (0-4) /hpf Urine WBC (0-5) /hpf Ur Epithelial Cells (0-5) /lpf Urine Bacteria (Negative) Carbamazepine 3.7 L (4-12) mcg/ml COVID-19 Eval Order COVID-19 PCR (Negative) 12/08/19 12/08/19 12/08/19 Range/Units 16:27 17:15 17:15 WBC (4.8-10.8) K/uL RBC (4.7-6.1) M/uL Hgb (14.0-18.0) g/dL Hct (42-52) % MCV (80-100) fL MCH (25-34) pg MCHC (32-36) g/dL RDW Std Deviation (36.4-46.3) fL RDW Coeff of Oniel (11.5-14.5) % Plt Count (130-400) K/uL MPV (7.4-10.4) fL Immature Gran % (Auto) % Neut % (Auto) % Lymph % (Auto) % [place] % (Auto) % Eos % (Auto) % Baso % (Auto) % Neut # (Auto) (1.4-6.5) K/uL Lymph # (Auto) (1.2-3.4) K/uL [place] # (Auto) (0.11-0.59) K/uL Eos # (Auto) (0-0.5) K/uL Baso # (Auto) (0-0.2) K/uL Immature Gran # (Auto) (0.00-0.02) K/uL PT (9.0-12.0) Seconds INR (0.9-1.1) APTT (21.0-31.0) Seconds PTT Ratio Sodium (136-145) mmol/L Potassium (3.5-5.1) mmol/L Chloride (98-107) mmol/L Carbon Dioxide (21-32) mmol/L Anion Gap (3-11) BUN (7-18) mg/dl Creatinine (0.6-1.4) mg/dl Est Cr Clr Drug Dosing ml/min Est GFR ( Amer) Est GFR (Non-Af Amer) BUN/Creatinine Ratio (10-20) Glucose (70-99) mg/dl Lactate (0.4-2.0) mmol/L Calcium (8.5-10.1) mg/dl Magnesium (1.8-2.4) mg/dl Total Bilirubin (0.2-1) mg/dl AST (15-37) U/L ALT (12-78) U/L Alkaline Phosphatase (45-117) U/L Troponin I (0-0.045) ng/ml Total Protein (6.4-8.2) gm/dl Albumin (3.4-5.0) gm/dl Globulin (2.5-4.0) gm/dl Albumin/Globulin Ratio (0.9-2) Procalcitonin (0-0.5) ng/ml TSH (0.300-4.500) uIu/ml Free T4 (0.8-1.6) ng/dl Urine Color Yellow Urine Appearance Clear (Clear) Urine pH 6.5 (4.5-7.5) Ur Specific [place] 1.007 (1.000-1.030) Urine Protein Negative (Negative) Urine Glucose (UA) Negative (Negative) Urine Ketones Negative (Negative) Urine Blood 2+ H (Negative) Urine Nitrite Negative (Negative) Urine Bilirubin Negative (Negative) Urine Urobilinogen Negative (Negative) Ur Leukocyte Esterase Trace H (Negative) Urine RBC 0-4 (0-4) /hpf Urine WBC 10-30 H (0-5) /hpf Ur Epithelial Cells 10-20 H (0-5) /lpf Urine Bacteria 1+ H (Negative) Carbamazepine (4-12) mcg/ml COVID-19 Eval Order Covid19 Done at [facility] COVID-19 PCR NEGATIVE (Negative) 12/08/19 Range/Units 18:20 WBC (4.8-10.8) K/uL RBC (4.7-6.1) M/uL Hgb (14.0-18.0) g/dL Hct (42-52) % MCV (80-100) fL MCH (25-34) pg MCHC (32-36) g/dL RDW Std Deviation (36.4-46.3) fL RDW Coeff of Oniel (11.5-14.5) % Plt Count (130-400) K/uL MPV (7.4-10.4) fL Immature Gran % (Auto) % Neut % (Auto) % Lymph % (Auto) % [place] % (Auto) % Eos % (Auto) % Baso % (Auto) % Neut # (Auto) (1.4-6.5) K/uL Lymph # (Auto) (1.2-3.4) K/uL [place] # (Auto) (0.11-0.59) K/uL Eos # (Auto) (0-0.5) K/uL Baso # (Auto) (0-0.2) K/uL Immature Gran # (Auto) (0.00-0.02) K/uL PT (9.0-12.0) Seconds INR (0.9-1.1) APTT (21.0-31.0) Seconds PTT Ratio Sodium (136-145) mmol/L Potassium (3.5-5.1) mmol/L Chloride (98-107) mmol/L Carbon Dioxide (21-32) mmol/L Anion Gap (3-11) BUN (7-18) mg/dl Creatinine (0.6-1.4) mg/dl Est Cr Clr Drug Dosing ml/min Est GFR ( Amer) Est GFR (Non-Af Amer) BUN/Creatinine Ratio (10-20) Glucose (70-99) mg/dl Lactate 1.3 (0.4-2.0) mmol/L Calcium (8.5-10.1) mg/dl Magnesium (1.8-2.4) mg/dl Total Bilirubin (0.2-1) mg/dl AST (15-37) U/L ALT (12-78) U/L Alkaline Phosphatase (45-117) U/L Troponin I (0-0.045) ng/ml Total Protein (6.4-8.2) gm/dl Albumin (3.4-5.0) gm/dl Globulin (2.5-4.0) gm/dl Albumin/Globulin Ratio (0.9-2) Procalcitonin (0-0.5) ng/ml TSH (0.300-4.500) uIu/ml Free T4 (0.8-1.6) ng/dl Urine Color Urine Appearance (Clear) Urine pH (4.5-7.5) Ur Specific [place] (1.000-1.030) Urine Protein (Negative) Urine Glucose (UA) (Negative) Urine Ketones (Negative) Urine Blood (Negative) Urine Nitrite (Negative) Urine Bilirubin (Negative) Urine Urobilinogen (Negative) Ur Leukocyte Esterase (Negative) Urine RBC (0-4) /hpf Urine WBC (0-5) /hpf Ur Epithelial Cells (0-5) /lpf Urine Bacteria (Negative) Carbamazepine (4-12) mcg/ml COVID-19 Eval Order COVID-19 PCR (Negative) Imaging Data Radiologist's Impression: CT OF THE ABDOMEN AND PELVIS WITH CONTRAST CLINICAL HISTORY: Fever. COMPARISON STUDY: CT of the abdomen and pelvis September 07, 2019. TECHNIQUE: Following IV administration of 93 mL of Optiray-320, axial images of the abdomen and pelvis were obtained from the lung bases to the proximal femurs. Images were reviewed in the axial, sagittal, and coronal planes. IV contrast was administered without complication. Automated exposure control was utilized for the study. A dose lowering technique was utilized adhering to the principles of ALARA. CT DOSE: 1080.70 mGycm FINDINGS: Lung bases are unremarkable. No pneumatosis, free air or portal venous gas is present. Multiple hepatic cysts are noted. These are unchanged. The spleen, adrenal glands and pancreas are unremarkable. There is no peripancreatic or pericholecystic infiltration. There are gallstones within the gallbladder without evidence for acute cholecystitis. 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 There is slight prominence of both collecting system without hydronephrosis. Dilatation of the distal right ureter is chronic. This is unchanged. A Dunn balloon is present within the bladder which is collapsed. Nephrograms are symmetric. A moderate amount stool within the colon and rectum is noted. Images of the pelvis are degraded by streak artifact from a left hip arthroplasty. There is avascular necrosis of the right femoral head. Major vasculature is patent. No bowel wall thickening is identified. The appendix is not identified. There is no lymphadenopathy or ascites. IMPRESSION: 1. No acute process within the abdomen or pelvis. 2. Cholelithiasis. No evidence for acute cholecystitis. 3. Moderate amount stool within the colon. No bowel wall thickening. No bowel obstruction. 4. Avascular necrosis of the right femoral head. ACT 112: Negative or not required by law. Electronically signed by: Zac Klein M.D. 12/08/2019 8:09 PM XR chest 1V portable CLINICAL HISTORY: Fever COMPARISON STUDY: Chest radiograph November 20, 2019. FINDINGS: Lung volumes are normal. Lungs are clear. There is no pneumothorax or pleural effusion. Cardiac size is normal. Mediastinal contours are normal. There is no evidence for pulmonary edema. Right PICC is in place. Incidental note is made of multiple old bilateral rib fractures. IMPRESSION: No acute cardiopulmonary findings. ACT 112: Negative or not required by law. Electronically signed by: Zac Klein M.D. 12/08/2019 4:53 PM ECG Data Attestation: I personally reviewed and interpreted this ECG as follows: Indication: + weakness Rate (beats per minute): 83 Rhythm: + normal sinus ECG Intervals/blocks: + First degree AV block, + Normal QRS and + Prolonged QT ECG [place]: + Left axis deviation ECG ST segments: + Nonspecific ST abnormalities Blood Pressure Blood Pressure Findings: Normal blood pressure MDM Narrative Ill-appearing male who was referred on from [facility] due to concern for recurrent intermittent fevers. Patient has been having ongoing outpatient evaluation for these as they have happened every few days. Prior labs are reassuring, patient sent in today as they were unable to get any repeat labs performed today due to time and patient had developed a temperature of 102.7. Patient denied any focal complaints, stating he felt weak, and did notice subjective fevers and chills. Evaluation started for possible sepsis. Patient does have an indwelling PICC line as well as indwelling Dunn catheter. No evidence of skin breakdown or ulcerations. Patient had no complaints of headaches, chest pain, abdominal pain, respiratory symptoms. Strep swab was negative, ace virus testing was added as a precaution was negative also. Patient's lactic acid and procalcitonin reassuring. Patient is already getting nafcillin for previously diagnosed MSSA bacteremia. It is unclear if there is another infectious source, versus drug fever versus viral versus tickborne etiology. Given patient's prolonged hospitalization and recent rehabilitation stays, consideration should also be given to fungal infection. In light of patient's condition, case discussed with hospitalist for additional evaluation and management. An order was placed for continuous cardiac monitoring. The monitor shows a rate of _90_ with _normal sinus__ rhythm. Impression & Plan Fever of unknown origin, Left hemiparesis, Indwelling Dunn catheter present, Fatigue Discharge Plan Visit Data Chief Complaint: Fever Stated Complaint: FEVER ED Provider: Leelee Rangel Discharge Problem: Fever of unknown origin, Left hemiparesis, Indwelling Dunn catheter present, Fatigue Patient Disposition: Admitted As Inpatient Discharge Instructions Interventions: ED Discharge Assessment Last Done: 12/08/19 23:53 Discharge Problem: Fatigue Qualifiers: Fatigue type: unspecified Qualified Code(s): R53.83 - Other fatigue
[2019-12-08 17:03] LABS: Appearance Urine Clear (Clear); Bilirubin Urine Negative (Negative); Blood Urine 2+ (Negative); Color Urine Yellow; Glucose Urine UA Negative (Negative); Ketones Urine Negative (Negative); Leukocyte Esterase Urine Trace (Negative); Nitrite Urine Negative (Negative); Protein Urine Negative (Negative); Specific Gravity Urine 1.007 (1.000-1.030); Urobilinogen Urine Negative (Negative); pH Urine 6.5 (4.5-7.5)
[2019-12-08 17:31] LABS: Bacteria Urine 1+ (Negative); RBC Urine 0-4 /hpf (0-4)
[2019-12-08 17:59] LABS: INR 1.4 (0.9-1.1); Partial Thromboplastin Ratio 1.6; Partial Thromboplastin Time 44.5 Seconds (21.0-31.0); Prothrombin Time 14.7 Seconds (9.0-12.0)
[2019-12-08 18:19] LABS: Magnesium 2.4 mg/dl (1.8-2.4); Thyroid Stimulating Hormone < 0.005 uIu/ml (0.300-4.500); Troponin I < 0.015 ng/ml (0-0.045)
[2019-12-08 18:32] LABS: T4 Free Thyroxine 1.08 ng/dl (0.8-1.6)
[2019-12-08] MEDS ORDERED: IOVERSOL 100ml IV ONE (19:35)
--- NOTE | 2019-12-08 20:11 | CT Scan Report ---
CT OF THE ABDOMEN AND PELVIS WITH CONTRAST CLINICAL HISTORY: Fever. COMPARISON STUDY: CT of the abdomen and pelvis September 07, 2019. TECHNIQUE: Following IV administration of 93 mL of Optiray-320, axial images of the abdomen and pelvi s were obtained from the lung bases to the proximal femurs. Images were reviewed in the axial, sagitt al, and coronal planes. IV contrast was administered without complication. Automated exposure contro l was utilized for the study. A dose lowering technique was utilized adhering to the principles of A ELVIS. CT DOSE: 1080.70 mGycm FINDINGS: Lung bases are unremarkable. No pneumatosis, free air or portal venous gas is present. Mult iple hepatic cysts are noted. These are unchanged. The spleen, adrenal glands and pancreas are unrema rkable. There is no peripancreatic or pericholecystic infiltration. There are gallstones within the g allbladder without evidence for acute cholecystitis. 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 There is slight prominence of both collecting system without hydronephrosis. Dilatation of the distal righ t ureter is chronic. This is unchanged. A Dunn balloon is present within the bladder which is collap sed. Nephrograms are symmetric. A moderate amount stool within the colon and rectum is noted. Images of the pelvis are degraded by streak artifact from a left hip arthroplasty. There is avascular necros is of the right femoral head. Major vasculature is patent. No bowel wall thickening is identified. Th e appendix is not identified. There is no lymphadenopathy or ascites. IMPRESSION: 1. No acute process within the abdomen or pelvis. 2. Cholelithiasis. No evidence for acute cholecystitis. 3. Moderate amount stool within the colon. No bowel wall thickening. No bowel obstruction. 4. Avascular necrosis of the right femoral head. ACT 112: Negative or not required by law. Electronically signed by: Zac Klein M.D. 12/08/2019 8:09 PM
[2019-12-08] MEDS ORDERED: CEFEPIME 2,000 MG/20 ML VIAL IV STA (21:26)
[2019-12-08] MEDS ORDERED: VANCOMYCIN CONSULT ACTIVE PRN ×2 (21:52)
[2019-12-08] MEDS ORDERED: VANCOMYCIN HCL 1,750 MG in SODIUM CHLORIDE 0.9% 500 ML IV ONE (21:52)
--- NOTE | 2019-12-08 22:46 | History & Physical Report ---
Date of Service December 08, 2019 Assessment & Plan (1) Fever of unknown origin: Patient with intermittent fevers since October. Last recorded fever was yesterday. No obvious source. He had positive blood cultures form outside facility - MSSA on 11/20/19. There was question of endocarditis - TTE with no vegetation. Uncertain if BALJIT was obtained. Additional sources to consider include patient's PICC line, Dunn, Tick-borne illnesses. Central fever or drug induced fever -Admit to medical floor -Follow blood cultures sent from ER - should be followed for prolonged time to assess for fastidious organisms, HACEK -Check fungal culture -Check ESR and CRP -Check Lyme, Anaplasmosis, Babesiosis -Check 2D echo - ?Janeway lesions noted on fingertips bilaterally -Consider ID consultation -Tylenol as needed for fever -Will continue Nafcillin for now Present on Admission?: Yes (2) Left hemiparesis: s/p CVA -Monitor Present on Admission?: Yes (3) Hypothyroidism: Chronic -Continue Synthroid 150mcg po daily Present on Admission?: Yes (4) Seizure: Chronic. Well controlled -Continue Lamictal 50mg po qAM, 75mg po qHS -Continue Tegretol 400mg po BID Present on Admission?: Yes (5) Adrenal insufficiency: -Continue Hydrocortisone Present on Admission?: Yes (6) Hypercholesteremia: Chronic -Continue Atorvastatin 40mg po daily F/E/N - NSS at 80mL/hr x 1 liter, K repletion, monitor electrolytes, regular diet as tolerated with aspiration precautions, honey thickened liquids. Speech/Swallow evaluation for further feeding recommendations Ppx - Lovenox for DVT ppx Code- Full per discussion with patient Dispo - Admit to medical floor Present on Admission?: Yes History of Present Illness Chief Complaint: fever Primary Care Provider: Wilfred Minor MD Hitesh Mancia is a pleasant 64yo male with complex medical history to include muscle spasms, partial complex seizure, hypothyroidism, adrenal insufficiency, history of multifocal ischemic CVA of the right anterior choroidal artery territory, right amygdala, head of the hippocampus, posterior limb and retrolenticular portion fo the right IC, lateral thalamus on 11/20/19. He has dense left hemiparesis, facial droop and dysarthria secondary to his CVA. Patient was initially seen at [facility] as a Code Stroke then was transferred to [facility] for possible neurological intervention. Patient developed fever on 11/21/19. Blood cultures were drawn and were positive for MSSA. A TTE was perfomed with no significant valvular abnormalities. He was treated with Vancomycin/Cefepime and Flagyl. Patient continued to have intermittent fevers. He was evaluated by ID at [facility] on 11/21. He was started on Nafcillin 2gm IV q 4 hours. Patient was discharged from [facility] to rehab facility and then to [facility]. He has had intermittent fevers over the last 4-5 days - as high as 102.7 last night. Patient also reports shaking chills and fatigue as well as a slight sore throat, occasional diarrhea and a slight cough. Otherwise, patient with no complaints. Specifically denies RYAN/neck stiffness/facial pain/dental pain/CP/SOB/abdominal pain/nausea/vomiting/dysuria. He denies rashes, joint pain or swelling. He does have an indwelling Dunn catheter and a PICC line (October 29). Patient recently had a PEG tube which was removed. He had aspiration of fluid from the left knee that was consistent with inflammatory process. He had unremarkable dental imaging as well. Patient states that he loved hiking prior to his stroke and spent a lot of time outdoors. No reported tick bites. ER Course: Cefepime/Vancomycin Allergies Allergy/AdvReac Type Severity Reaction Status Date / Time doxepin Allergy itchy Verified 11/20/19 14:01 amoxicillin [From Augmentin] AdvReac Intermediate diarrhea / Verified 11/20/19 14:01 hx c diff clavulanic acid AdvReac Intermediate diarrhea / Verified 11/20/19 14:01 [From Augmentin] hx c diff Home Medications Home Medications Medication Instructions Recorded Confirmed Type gabapentin 300 mg capsule 300 mg PO TID #90 cap 09/05/19 12/08/19 Rx levothyroxine [Euthyrox] 150 mcg PO QAM 11/04/19 12/08/19 History carbamazepine 400 mg PO BID 30 Days #120 tab 11/05/19 12/08/19 Rx nortriptyline 25 mg capsule 50 mg PO HS #60 cap 11/09/19 12/08/19 Rx lamotrigine [Lamictal] 75 mg PO HS 11/20/19 12/08/19 History Lactobacillus acidoph-L.bulgar 1 tab PO DAILY 12/08/19 12/08/19 History [Floranex] acetaminophen 650 mg PO Q4H PRN 12/08/19 12/08/19 History aspirin 81 mg PO DAILY 12/08/19 12/08/19 History atorvastatin 40 mg PO DAILY 12/08/19 12/08/19 History baclofen 10 mg PO BID 12/08/19 12/08/19 History baclofen 10 mg PO BID PRN 12/08/19 12/08/19 History benzocaine-menthol 1 josi PO Q2H PRN 12/08/19 12/08/19 History clopidogrel 75 mg PO DAILY 12/08/19 12/08/19 History docusate sodium 100 mg PO BID 12/08/19 12/08/19 History enoxaparin 40 mg SUBCUT DAILY 12/08/19 12/08/19 History ergocalciferol (vitamin D2) 50,000 unit PO DIRECTED 12/08/19 12/08/19 History famotidine 40 mg PO HS 12/08/19 12/08/19 History hydrocodone-acetaminophen [[place]] 1 tab PO BID PRN 12/08/19 12/08/19 History hydrocortisone 25 mg PO DAILY 12/08/19 12/08/19 History hydrocortisone [Cortef] 5 mg PO DAILY 12/08/19 12/08/19 History lamotrigine [Lamictal] 50 mg PO QAM 12/08/19 12/08/19 History nafcillin [Nallpen] 2 g IV Q4H 12/08/19 12/08/19 History tamsulosin 0.4 mg PO QDD 12/08/19 12/08/19 History tizanidine [Zanaflex] 4 mg PO Q6H PRN 12/08/19 12/08/19 History Past Med/Surg History Medical History (Updated 12/09/19 @ 05:23 by Tammy Zamarripa DO) Gout Hernia History of meningioma of the brain BASAL SKULL. PT HAS HAD MULTIPLE CRAINOTOMY PROCEDURES AND 2 GAMMA KNIFE PROCEDURES. CONTINUES TO FOLLOW WITH DR. GOMEZ (NEURO) Hypothyroidism Left hemiparesis Migraine Status post gamma knife treatment X2 Surgical History History of appendectomy History of blepharoplasty RIGHT EYE. History of cataract extraction with lens replacement History of craniotomy X4 INCLUDING GAMMA KNIFE SURGERY X2. 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 1996, 1997, 1998, 2001, AND 2002 History of eye surgery LEFT, R/T MUSCLE REPAIR History of hip surgery [place] PROCEDURE WITH DR. OTOOLE History of laminectomy L5 S1 History of surgery LEFT RING FINGER Family History Mother Hypertension Father Heart disease Social History Smoking Status: Never smoker Second Hand Exposure: No; Do You Dip or Chew Tobacco: No; Hx Alcohol Use: No Hx Substance Use: No Preferred Language: Kyrgyz Communication Ability: Effective Clinical Education Specialist Required: No Beliefs That Will Affect Care: None marital status: Current Living Situation: Rehab current occupational status: unemployed Feels Safe at Home: Yes Safety Concerns: Feels Safe At This Time Review of Systems Review of Systems: All systems reviewed & are unremarkable except as noted in HPI & below Physical Exam Physical Exam: General: patient resting comfortably, NAD, non-toxic in appearance, AA&O x 4 Skin: warm, dry, intact, no rashes HEENT: NC/AT, anicteric sclera, conjunctiva without injection, external ear normal to inspection and nontender, TM with no infection, nares patent, no facial tenderness or tooth pain, moist mucus membranes, dentition intact, no oropharyngeal lesions, neck supple, trachea midline, no LAD, no thyromegaly, no JVD, fundoscopic exam limited but no obvious issues noted in right eye - left fundoscopic exam limited Heart: +S1/S2, regular, no m/r/g, PICC line nontender Lungs: equal air entry bilaterally, no rales/rhonchi/wheezes Abd: +BS, soft, NT/ND, no masses/organomegaly/ascites, +Dunn in place Ext: warm, 2+ pulses in UE/LE bilaterally, no clubbing/cyanosis or edema, +dark lesions on tips of fingers, non-tender ?Janeway lesions? Neuro:+left facial droop, +hemiparesis, +dysarthria Results & Data Results & Data ([facility]) Vital Signs (Past 12 Hours) Vital Signs Temp Pulse Resp BP Pulse Ox 12/08/19 22:01 92 H 20 149/91 H 98 12/08/19 21:30 89 16 150/91 H 99 12/08/19 21:28 88 16 160/90 H 100 12/08/19 21:00 87 16 99 12/08/19 20:36 37.4 C 12/08/19 20:30 88 18 99 12/08/19 20:00 86 18 100 12/08/19 18:30 85 18 108/71 100 12/08/19 18:00 83 16 124/81 100 12/08/19 17:30 84 23 120/84 99 12/08/19 17:26 99 12/08/19 17:20 84 16 116/85 99 12/08/19 15:52 36.7 C 88 18 132/83 97 12/08/19 15:35 87 16 132/83 97 Laboratory Results Lab Results 12/08/19 12/08/19 12/08/19 Range/Units 16:27 16:27 16:27 WBC 8.85 (4.8-10.8) K/uL RBC 4.11 L (4.7-6.1) M/uL Hgb 12.0 L (14.0-18.0) g/dL Hct 35.5 L (42-52) % MCV 86.4 (80-100) fL MCH 29.2 (25-34) pg MCHC 33.8 (32-36) g/dL RDW Std Deviation 42.8 (36.4-46.3) fL RDW Coeff of Oniel 13.5 (11.5-14.5) % Plt Count 334 (130-400) K/uL MPV 8.3 (7.4-10.4) fL Immature Gran % (Auto) 0.3 % Neut % (Auto) 71.8 % Lymph % (Auto) 14.9 % [place] % (Auto) 11.9 % Eos % (Auto) 0.8 % Baso % (Auto) 0.3 % Neut # (Auto) 6.35 (1.4-6.5) K/uL Lymph # (Auto) 1.32 (1.2-3.4) K/uL [place] # (Auto) 1.05 H (0.11-0.59) K/uL Eos # (Auto) 0.07 (0-0.5) K/uL Baso # (Auto) 0.03 (0-0.2) K/uL Immature Gran # (Auto) 0.03 H (0.00-0.02) K/uL PT 14.7 H (9.0-12.0) Seconds INR 1.4 H (0.9-1.1) APTT 44.5 H (21.0-31.0) Seconds PTT Ratio 1.6 Sodium 139 (136-145) mmol/L Potassium 3.2 L (3.5-5.1) mmol/L Chloride 109 H (98-107) mmol/L Carbon Dioxide 21 (21-32) mmol/L Anion Gap 9.0 (3-11) BUN 10 (7-18) mg/dl Creatinine 0.98 (0.6-1.4) mg/dl Est Cr Clr Drug Dosing 89.0 ml/min Est GFR ( Amer) 94.7 Est GFR (Non-Af Amer) 81.7 BUN/Creatinine Ratio 9.9 L (10-20) Glucose 119 H (70-99) mg/dl Lactate (0.4-2.0) mmol/L Calcium 7.3 L (8.5-10.1) mg/dl Magnesium (1.8-2.4) mg/dl Total Bilirubin 0.8 (0.2-1) mg/dl AST 28 (15-37) U/L ALT 30 (12-78) U/L Alkaline Phosphatase 36 L (45-117) U/L Troponin I (0-0.045) ng/ml Total Protein 7.0 (6.4-8.2) gm/dl Albumin 2.6 L (3.4-5.0) gm/dl Globulin 4.4 H (2.5-4.0) gm/dl Albumin/Globulin Ratio 0.6 L (0.9-2) Procalcitonin (0-0.5) ng/ml TSH (0.300-4.500) uIu/ml Free T4 (0.8-1.6) ng/dl Urine Color Urine Appearance (Clear) Urine pH (4.5-7.5) Ur Specific [place] (1.000-1.030) Urine Protein (Negative) Urine Glucose (UA) (Negative) Urine Ketones (Negative) Urine Blood (Negative) Urine Nitrite (Negative) Urine Bilirubin (Negative) Urine Urobilinogen (Negative) Ur Leukocyte Esterase (Negative) Urine RBC (0-4) /hpf Urine WBC (0-5) /hpf Ur Epithelial Cells (0-5) /lpf Urine Bacteria (Negative) Carbamazepine (4-12) mcg/ml COVID-19 Eval Order COVID-19 PCR (Negative) 12/08/19 12/08/19 12/08/19 Range/Units 16:27 16:27 16:27 WBC (4.8-10.8) K/uL RBC (4.7-6.1) M/uL Hgb (14.0-18.0) g/dL Hct (42-52) % MCV (80-100) fL MCH (25-34) pg MCHC (32-36) g/dL RDW Std Deviation (36.4-46.3) fL RDW Coeff of Oniel (11.5-14.5) % Plt Count (130-400) K/uL MPV (7.4-10.4) fL Immature Gran % (Auto) % Neut % (Auto) % Lymph % (Auto) % [place] % (Auto) % Eos % (Auto) % Baso % (Auto) % Neut # (Auto) (1.4-6.5) K/uL Lymph # (Auto) (1.2-3.4) K/uL [place] # (Auto) (0.11-0.59) K/uL Eos # (Auto) (0-0.5) K/uL Baso # (Auto) (0-0.2) K/uL Immature Gran # (Auto) (0.00-0.02) K/uL PT (9.0-12.0) Seconds INR (0.9-1.1) APTT (21.0-31.0) Seconds PTT Ratio Sodium (136-145) mmol/L Potassium (3.5-5.1) mmol/L Chloride (98-107) mmol/L Carbon Dioxide (21-32) mmol/L Anion Gap (3-11) BUN (7-18) mg/dl Creatinine (0.6-1.4) mg/dl Est Cr Clr Drug Dosing ml/min Est GFR ( Amer) Est GFR (Non-Af Amer) BUN/Creatinine Ratio (10-20) Glucose (70-99) mg/dl Lactate (0.4-2.0) mmol/L Calcium (8.5-10.1) mg/dl Magnesium 2.4 (1.8-2.4) mg/dl Total Bilirubin (0.2-1) mg/dl AST (15-37) U/L ALT (12-78) U/L Alkaline Phosphatase (45-117) U/L Troponin I < 0.015 (0-0.045) ng/ml Total Protein (6.4-8.2) gm/dl Albumin (3.4-5.0) gm/dl Globulin (2.5-4.0) gm/dl Albumin/Globulin Ratio (0.9-2) Procalcitonin 0.14 (0-0.5) ng/ml TSH < 0.005 L (0.300-4.500) uIu/ml Free T4 1.08 (0.8-1.6) ng/dl Urine Color Urine Appearance (Clear) Urine pH (4.5-7.5) Ur Specific [place] (1.000-1.030) Urine Protein (Negative) Urine Glucose (UA) (Negative) Urine Ketones (Negative) Urine Blood (Negative) Urine Nitrite (Negative) Urine Bilirubin (Negative) Urine Urobilinogen (Negative) Ur Leukocyte Esterase (Negative) Urine RBC (0-4) /hpf Urine WBC (0-5) /hpf Ur Epithelial Cells (0-5) /lpf Urine Bacteria (Negative) Carbamazepine 3.7 L (4-12) mcg/ml COVID-19 Eval Order COVID-19 PCR (Negative) 12/08/19 12/08/19 12/08/19 Range/Units 16:27 17:15 17:15 WBC (4.8-10.8) K/uL RBC (4.7-6.1) M/uL Hgb (14.0-18.0) g/dL Hct (42-52) % MCV (80-100) fL MCH (25-34) pg MCHC (32-36) g/dL RDW Std Deviation (36.4-46.3) fL RDW Coeff of Oniel (11.5-14.5) % Plt Count (130-400) K/uL MPV (7.4-10.4) fL Immature Gran % (Auto) % Neut % (Auto) % Lymph % (Auto) % [place] % (Auto) % Eos % (Auto) % Baso % (Auto) % Neut # (Auto) (1.4-6.5) K/uL Lymph # (Auto) (1.2-3.4) K/uL [place] # (Auto) (0.11-0.59) K/uL Eos # (Auto) (0-0.5) K/uL Baso # (Auto) (0-0.2) K/uL Immature Gran # (Auto) (0.00-0.02) K/uL PT (9.0-12.0) Seconds INR (0.9-1.1) APTT (21.0-31.0) Seconds PTT Ratio Sodium (136-145) mmol/L Potassium (3.5-5.1) mmol/L Chloride (98-107) mmol/L Carbon Dioxide (21-32) mmol/L Anion Gap (3-11) BUN (7-18) mg/dl Creatinine (0.6-1.4) mg/dl Est Cr Clr Drug Dosing ml/min Est GFR ( Amer) Est GFR (Non-Af Amer) BUN/Creatinine Ratio (10-20) Glucose (70-99) mg/dl Lactate (0.4-2.0) mmol/L Calcium (8.5-10.1) mg/dl Magnesium (1.8-2.4) mg/dl Total Bilirubin (0.2-1) mg/dl AST (15-37) U/L ALT (12-78) U/L Alkaline Phosphatase (45-117) U/L Troponin I (0-0.045) ng/ml Total Protein (6.4-8.2) gm/dl Albumin (3.4-5.0) gm/dl Globulin (2.5-4.0) gm/dl Albumin/Globulin Ratio (0.9-2) Procalcitonin (0-0.5) ng/ml TSH (0.300-4.500) uIu/ml Free T4 (0.8-1.6) ng/dl Urine Color Yellow Urine Appearance Clear (Clear) Urine pH 6.5 (4.5-7.5) Ur Specific [place] 1.007 (1.000-1.030) Urine Protein Negative (Negative) Urine Glucose (UA) Negative (Negative) Urine Ketones Negative (Negative) Urine Blood 2+ H (Negative) Urine Nitrite Negative (Negative) Urine Bilirubin Negative (Negative) Urine Urobilinogen Negative (Negative) Ur Leukocyte Esterase Trace H (Negative) Urine RBC 0-4 (0-4) /hpf Urine WBC 10-30 H (0-5) /hpf Ur Epithelial Cells 10-20 H (0-5) /lpf Urine Bacteria 1+ H (Negative) Carbamazepine (4-12) mcg/ml COVID-19 Eval Order Covid19 Done at [facility] COVID-19 PCR NEGATIVE (Negative) 12/08/19 Range/Units 18:20 WBC (4.8-10.8) K/uL RBC (4.7-6.1) M/uL Hgb (14.0-18.0) g/dL Hct (42-52) % MCV (80-100) fL MCH (25-34) pg MCHC (32-36) g/dL RDW Std Deviation (36.4-46.3) fL RDW Coeff of Oniel (11.5-14.5) % Plt Count (130-400) K/uL MPV (7.4-10.4) fL Immature Gran % (Auto) % Neut % (Auto) % Lymph % (Auto) % [place] % (Auto) % Eos % (Auto) % Baso % (Auto) % Neut # (Auto) (1.4-6.5) K/uL Lymph # (Auto) (1.2-3.4) K/uL [place] # (Auto) (0.11-0.59) K/uL Eos # (Auto) (0-0.5) K/uL Baso # (Auto) (0-0.2) K/uL Immature Gran # (Auto) (0.00-0.02) K/uL PT (9.0-12.0) Seconds INR (0.9-1.1) APTT (21.0-31.0) Seconds PTT Ratio Sodium (136-145) mmol/L Potassium (3.5-5.1) mmol/L Chloride (98-107) mmol/L Carbon Dioxide (21-32) mmol/L Anion Gap (3-11) BUN (7-18) mg/dl Creatinine (0.6-1.4) mg/dl Est Cr Clr Drug Dosing ml/min Est GFR ( Amer) Est GFR (Non-Af Amer) BUN/Creatinine Ratio (10-20) Glucose (70-99) mg/dl Lactate 1.3 (0.4-2.0) mmol/L Calcium (8.5-10.1) mg/dl Magnesium (1.8-2.4) mg/dl Total Bilirubin (0.2-1) mg/dl AST (15-37) U/L ALT (12-78) U/L Alkaline Phosphatase (45-117) U/L Troponin I (0-0.045) ng/ml Total Protein (6.4-8.2) gm/dl Albumin (3.4-5.0) gm/dl Globulin (2.5-4.0) gm/dl Albumin/Globulin Ratio (0.9-2) Procalcitonin (0-0.5) ng/ml TSH (0.300-4.500) uIu/ml Free T4 (0.8-1.6) ng/dl Urine Color Urine Appearance (Clear) Urine pH (4.5-7.5) Ur Specific [place] (1.000-1.030) Urine Protein (Negative) Urine Glucose (UA) (Negative) Urine Ketones (Negative) Urine Blood (Negative) Urine Nitrite (Negative) Urine Bilirubin (Negative) Urine Urobilinogen (Negative) Ur Leukocyte Esterase (Negative) Urine RBC (0-4) /hpf Urine WBC (0-5) /hpf Ur Epithelial Cells (0-5) /lpf Urine Bacteria (Negative) Carbamazepine (4-12) mcg/ml COVID-19 Eval Order COVID-19 PCR (Negative) Diagnostic Findings CT OF THE ABDOMEN AND PELVIS WITH CONTRAST CLINICAL HISTORY: Fever. COMPARISON STUDY: CT of the abdomen and pelvis September 07, 2019. TECHNIQUE: Following IV administration of 93 mL of Optiray-320, axial images of the abdomen and pelvis were obtained from the lung bases to the proximal femurs. Images were reviewed in the axial, sagittal, and coronal planes. IV contrast was administered without complication. Automated exposure control was utilized for the study. A dose lowering technique was utilized adhering to the principles of ALARA. CT DOSE: 1080.70 mGycm FINDINGS: Lung bases are unremarkable. No pneumatosis, free air or portal venous gas is present. Multiple hepatic cysts are noted. These are unchanged. The spleen, adrenal glands and pancreas are unremarkable. There is no peripancreatic or pericholecystic infiltration. There are gallstones within the gallbladder without evidence for acute cholecystitis. 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 There is slight prominence of both collecting system without hydronephrosis. Dilatation of the distal right ureter is chronic. This is unchanged. A Dunn balloon is present within the bladder which is collapsed. Nephrograms are symmetric. A moderate amount stool within the colon and rectum is noted. Images of the pelvis are degraded by streak artifact from a left hip arthroplasty. There is avascular necrosis of the right femoral head. Major vasculature is patent. No bowel wall thickening is identified. The appendix is not identified. There is no lymphadenopathy or ascites. IMPRESSION: 1. No acute process within the abdomen or pelvis. 2. Cholelithiasis. No evidence for acute cholecystitis. 3. Moderate amount stool within the colon. No bowel wall thickening. No bowel obstruction. 4. Avascular necrosis of the right femoral head. ACT 112: Negative or not required by law. Electronically signed by: Zac Klein M.D. 12/08/2019 8:09 PM Dictated: 12/08/192000 Transcribed: 12/08/192000 XR chest 1V portable CLINICAL HISTORY: Fever COMPARISON STUDY: Chest radiograph November 20, 2019. FINDINGS: Lung volumes are normal. Lungs are clear. There is no pneumothorax or pleural effusion. Cardiac size is normal. Mediastinal contours are normal. There is no evidence for pulmonary edema. Right PICC is in place. Incidental note is made of multiple old bilateral rib fractures. IMPRESSION: No acute cardiopulmonary findings. ACT 112: Negative or not required by law. Electronically signed by: Zac Klein M.D. 12/08/2019 4:53 PM Dictated: 12/08/191651 Transcribed: 12/08/191651 ECG Additional Comments: EKG with NSR at 83bpm, left axis, RX=958, AHR=499, YUr=708, ST wave flattening in anterior/lateral leads Code Status & VTE Plan Code Status FULL CODE VTE Prophylaxis Plan VTE Prophylaxis will be ordered: Yes PG Care Time/CCT Total # of Minutes Spent Total Time Spent with Patient: Total time spent is greater than 50% in coordination of care (as documented) at patient's floor/unit and/or counseling patient: Coding Level of Care Code 93166 Initial Inpt Care Lvl 3 Diagnoses Fever of unknown origin R50.9 Left hemiparesis G81.94 Hypothyroidism E03.9 Hypothyroidism type: unspecified Seizure R56.9 Adrenal insufficiency E27.40 Hypercholesteremia E78.00 (1) Hypothyroidism Hypothyroidism type: unspecified Qualified Code(s): E03.9 - Hypothyroidism, unspecified
[2019-12-09] MEDS ORDERED: BACLOFEN 10 MG TAB PO PRN (00:15)
[2019-12-09] MEDS ORDERED: NAFCILLIN 2 GM IV SCH (00:15)
[2019-12-09] MEDS ORDERED: HYDROCODONE/ACETAMINOPHEN 10/325 TAB PO PRN (00:15)
[2019-12-09] MEDS ORDERED: SODIUM CHLORIDE 0.9% 1000ML 1,000 ML IV SCH (00:15)
[2019-12-09] MEDS ORDERED: COUGH DROP (SUGAR FREE) LOZ 24 LOZ/1 BOX BUCCAL PRN (00:15)
[2019-12-09] MEDS ORDERED: TIZANIDINE HCL 4 MG TABLET PO PRN (00:15)
[2019-12-09] MEDS ORDERED: ONDANSETRON INJ 2 MG/ML 2 ML VIAL IV PRN (00:15)
[2019-12-09] MEDS ORDERED: ACETAMINOPHEN 325 MG TAB PO PRN ×2 (00:15)
[2019-12-09] MEDS: LEVOTHYROXINE SODIUM 150 MCG TABLET PO SCH (06:24)
--- NOTE | 2019-12-09 07:38 | Hospitalist Progress Note ---
Date of Service December 09, 2019 Assessment & Plan (1) Fever of unknown origin: 64 y/o M w/ hx of CVA (11/20/19), seizures, hypothyroidism, adrenal insufficiency who presents w/intermittent fevers since 11/20. intermittent fevers, source unknown - afebrile since admission, 36.4C-37.4C. Per pt, his fevers the past several days prior to admission had been mostly during later in the day. - fever first started on 11/21/19. 11/21/19 BC (outside facility) MSSA+. vanc/ce fepime+flagyl switched to Nafcillin on 11/22/19 after ID eval - more recent bout of fever returned past 4-5 days prior to current 12/08/19 admission, peak of 102.7F home temp - possible sources - indwelling oliveros, RUE PICC line (no signs of infection on phys exam today). 12/08/19 UA trace leuk esterase. 10--30 wbc, 10-20 epithelial cells, 1+ bact, 2+ blood. - 1 wk of sore throat. had dental panorama - recent PEG tube, aspiration of fluid - outdoor exposure, hiker - janeway lesions noted on fingertips at admission. ~11/21/19 TTE neg. 12/09/19 TTE: neg (EF 60-65%, no vegetations, no pericardial effusion). 12/09/19 lyme igg igm neg. - labs. elevated ESR/CRP, which could represent inflammatory or infectious etiogies. normal procalc less suggestive of bacterial infection. 11/20/19 COVID neg. plan: continue nafcillin IV. cbc, bmp, phos, iCa. anaplasmosis, baseosis labs pending. f/u BC especially to r/o HACEK organisms. f/u fungal culture. Tylenol PRN for fever.may consult ID after workup returns and if source still unknown. 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 He has dense left hemiparesis, facial droop and dysarthria secondary to his CVA. - at baseline currently plan: continue Plavix 75. hx seizures - Lamictal 50 qam 75 qhs. Tegretol 400 BID. - 12/08/19c carbamazepine lvl: 3.7 (low) plan: lamotrigine lvl pending. continue home regimen. hypoalbuminemia - corrected Ca 8.7 plan: no repletion of Ca at this time hypokalemia - 12/09/19: 2.7 plan: repletion via 40meq krider and 20 meq oral KCl. f/u BMP in AM. FENGI: not currently on IVF, receiving IV Nafcillin. K repletion, monitor electrolytes, regular diet as tolerated with aspiration precautions, honey thickened liquids. Speech/Swallow evaluation for further feeding recommendations. FL video swallow pending. DVT prophylaxis: Lovenox code status:full dispo: medsurg Admission and Anticipated Discharge Date Admission Date: December 08, 2019 Supervising Physician Co-Signing Physician Notes Attending attestation Pt seen and examined in concert with Dr. Bourgeois. In agreement with the documented findings as noted in the resident documentation with any exceptions or additions as noted here. Resting comfortably in bed, reporting no fever which usually occurs in the PM. Tolerating POI On examination, S1/S2 nl RRR no MCG. CTAB. Abd NT/ND BS+ve. Left sided hemiparesis as noted. Evident discolored lesions of the distal upper extremity appreciated. Persistent fever - cultures and tick-borne disease pending. Echocardiogram today. Monitor temp. Nafcillin IV ongoing. Consider ID evaluation based on outcomes of current evaluation. Consider escalation of abx therapy with new or worsening symptoms. Hypokalemia - replete IV/PO Else see resident documentation as noted.\ Subjective No pain. sore throat for a wk. Some L eye drop. Hx stroke a month ago. L sided wkness residual. Has oliveros. no dysuria, hematuria Review of Systems Review of Systems: Constitutional: Denies fever, chills, Cardiovascular: Denies Chest pain Respiratory: Denies shortness of breath Gastrointestinal: Denies abdominal pain, nausea, vomiting, constipation, diarrhea Genitourinary: See HPI Musculoskeletal: + L sided weakness Neurological: Denies headache, numbness, tingling Physical Exam Physical Exam: General: A&Ox3. NAD. Cooperative. sleepy appearing in AM, fully awake during PM recheck. HEENT: Atraumatic, normocephalic. EOMI. L facial droop Pulm: CTAB. -wheezes, -rales, -rhonchi. Symmetrical chest rise. No respiratory distress. Cardiac: RRR, -mrg. Radial pulses intact and symmetrical. RUE PICC line site is not tender and not erythematous. Abdominal: Nontender, nondistended, soft. Neuro: L sided wkness. 1/5 strength. sensation intact. Results & Data Results & Data ([facility]) Vital Signs (Past 12 Hours) Vital Signs Temp Pulse Pulse Resp BP BP Pulse Ox 12/09/19 07:28 36.9 C 98 H 18 129/82 97 12/09/19 01:14 36.8 C 88 18 135/87 98 12/08/19 23:30 92 H 18 137/88 12/08/19 23:00 156 H 22 112/88 12/08/19 22:50 89 21 125/87 100 12/08/19 22:01 92 H 20 149/91 H 98 12/08/19 21:30 89 16 150/91 H 99 12/08/19 21:28 88 16 160/90 H 100 12/08/19 21:00 87 16 99 12/08/19 20:36 37.4 C 12/08/19 20:30 88 18 99 12/08/19 20:00 86 18 100 Resident Activity Tracking Resident Involvement: Resident Care Provided Care Provided: Adult Hospital Medicine
[2019-12-09 07:45] LABS: Basophils # (auto) 0.03 K/uL (0-0.2); Basophils % (auto) 0.3 %; Eosinophils # (auto) 0.13 K/uL (0-0.5); Eosinophils % (auto) 1.4 %; Hematocrit (blood only) 30.8 % (42-52); Hemoglobin 10.5 g/dL (14.0-18.0); Immature Granulocytes # (auto) 0.04 K/uL (0.00-0.02); Immature Granulocytes % (auto) 0.4 %; Lymphocytes # (auto) 2.42 K/uL (1.2-3.4); Lymphocytes % (auto) 25.9 %; Mean Corpuscular Hemoglobin 29.5 pg (25-34); Mean Corpuscular Hgb Conc 34.1 g/dL (32-36); Mean Corpuscular Volume 86.5 fL (80-100); Mean Platelet Volume 8.4 fL (7.4-10.4); Monocytes # (auto) 1.29 K/uL (0.11-0.59); Monocytes % (auto) 13.8 %; Neutrophils # (auto) 5.42 K/uL (1.4-6.5); Neutrophils % (auto) 58.2 %; Platelet Count 388 K/uL (130-400); RDW Coefficient of Variation 13.5 % (11.5-14.5); RDW Standard Deviation 42.6 fL (36.4-46.3); Red Blood Count 3.56 M/uL (4.7-6.1); White Blood Count 9.33 K/uL (4.8-10.8)
[2019-12-09] MEDS: NAFCILLIN SODIUM 2,000 MG in DEXTROSE 5% 100 ML IV SCH ×4 (07:45→20:43)
[2019-12-09] MEDS: GABAPENTIN 300 MG CAP PO SCH ×3 (07:46→20:48)
[2019-12-09] MEDS: DOCUSATE SODIUM 100 MG CAP PO SCH ×2 (07:47→20:50)
[2019-12-09] MEDS: carBAMazepine 200 MG TABLET PO SCH ×2 (07:47→20:51)
[2019-12-09] MEDS: ENOXAPARIN INJ 40 MG/0.4 ML SYR SQ SCH (07:47)
[2019-12-09] MEDS: lamoTRIgine 25 MG TAB PO SCH ×2 (07:47→20:45)
[2019-12-09] MEDS: ASPIRIN 81 MG ECTAB PO SCH (07:48)
[2019-12-09] MEDS: CLOPIDOGREL BISULFATE 75 MG TAB PO SCH (07:48)
[2019-12-09] MEDS: ATORVASTATIN 40 MG TAB PO SCH (07:48)
[2019-12-09] MEDS: BACLOFEN 10 MG TAB PO SCH ×2 (07:49→20:48)
[2019-12-09] MEDS: HYDROCORTISONE 10 MG TAB PO SCH ×2 (07:49→11:43)
[2019-12-09 08:25] LABS: Albumin Level 2.4 gm/dl (3.4-5.0); BUN Creatinine Ratio 5.7 (10-20); Bilirubin Direct 0.1 mg/dl (0-0.2); Bilirubin,Total 0.8 mg/dl (0.2-1); C Reactive Protein 17.1 mg/dl (0-0.29); Calcium 7.5 mg/dl (8.5-10.1); Creatinine Clr Calc Pharmacy 82.4 ml/min; Est GFR (African American) 78.1; Est GFR (Non-African American) 67.4; Potassium 2.7 mmol/L (3.5-5.1); Total Protein 6.6 gm/dl (6.4-8.2)
[2019-12-09 09:12] LABS: Lyme Ab IgG w/WB Rflx Negative (Negative); Lyme Ab IgM w/WB Rflx Negative (Negative)
[2019-12-09] MEDS ORDERED: PERFLUTREN LIPID MICROSPHERE (DEFINITY) IV ONE (09:35)
--- NOTE | 2019-12-09 09:38 | Electrocardiogram Report ---
Test Reason : Blood Pressure : / mmHG Vent. Rate : 083 BPM Atrial Rate : 083 BPM P-R Int : 202 ms QRS Dur : 112 ms QT Int : 436 ms P-R-T Axes : 026 -42 061 degrees QTc Int : 512 ms Normal sinus rhythm Left axis deviation anterolateral ST depression Prolonged QT Abnormal ECG When compared with ECG of 20-NOV-2019 13:45, The anterolateral ST depression is new Confirmed by Stephan Cardenas ([id number]) on 12/09/2019 9:37:43 AM Referred By: REFERRED SELF Confirmed By:Stephan Cardenas
[2019-12-09] MEDS ORDERED: POTASSIUM CHLORIDE 20 MEQ TABCR PO STA (12:34)
[2019-12-09] MEDS: POTASSIUM CHLORIDE / WTR 10 MEQ/100 ML PLCT IV SCH ×4 (13:20→16:05)
[2019-12-09] MEDS: TAMSULOSIN HCL 0.4 MG CAP PO SCH (16:05)
[2019-12-09] MEDS: NORTRIPTYLINE HCL 25 MG CAP PO SCH (20:46)
[2019-12-09] MEDS: FAMOTIDINE 40 MG TABLET PO SCH (20:49)
[2019-12-10] MEDS: NAFCILLIN SODIUM 2,000 MG in DEXTROSE 5% 100 ML IV SCH ×7 (01:05→23:22)
[2019-12-10 05:58] LABS: Basophils # (auto) 0.03 K/uL (0-0.2); Basophils % (auto) 0.6 %; Eosinophils # (auto) 0.22 K/uL (0-0.5); Eosinophils % (auto) 4.3 %; Hematocrit (blood only) 30.6 % (42-52); Immature Granulocytes # (auto) 0.01 K/uL (0.00-0.02); Immature Granulocytes % (auto) 0.2 %; Lymphocytes # (auto) 1.48 K/uL (1.2-3.4); Lymphocytes % (auto) 28.7 %; Mean Corpuscular Hemoglobin 28.7 pg (25-34); Mean Corpuscular Hgb Conc 32.7 g/dL (32-36); Mean Corpuscular Volume 87.7 fL (80-100); Mean Platelet Volume 8.4 fL (7.4-10.4); Monocytes # (auto) 0.93 K/uL (0.11-0.59); Neutrophils # (auto) 2.49 K/uL (1.4-6.5); Neutrophils % (auto) 48.2 %; Platelet Count 331 K/uL (130-400); RDW Coefficient of Variation 13.8 % (11.5-14.5); RDW Standard Deviation 44.4 fL (36.4-46.3); Red Blood Count 3.49 M/uL (4.7-6.1); White Blood Count 5.16 K/uL (4.8-10.8)
[2019-12-10 06:31] LABS: BUN Creatinine Ratio 6.5 (10-20); Calcium 7.1 mg/dl (8.5-10.1); Creatinine Clr Calc Pharmacy 107.7 ml/min; Est GFR (Non-African American) 91.4; Phosphorus 1.8 mg/dl (2.5-4.9); Potassium 2.9 mmol/L (3.5-5.1)
[2019-12-10] MEDS: LEVOTHYROXINE SODIUM 150 MCG TABLET PO SCH (06:35)
[2019-12-10] MEDS ORDERED: POTASSIUM PHOS 3 MMOL/1 ML INFUSION IV STA (06:57)
[2019-12-10] MEDS ORDERED: POTASSIUM PHOSPHATE 40 MMOL in SODIUM CHLORIDE 0.9% 1000ML 1,000 ML IV ONE (07:30)
[2019-12-10] MEDS: HYDROCORTISONE 10 MG TAB PO SCH ×2 (07:33→11:48)
[2019-12-10] MEDS: GABAPENTIN 300 MG CAP PO SCH ×3 (07:33→20:13)
[2019-12-10] MEDS: carBAMazepine 200 MG TABLET PO SCH ×2 (07:33→20:14)
[2019-12-10] MEDS: DOCUSATE SODIUM 100 MG CAP PO SCH ×2 (07:33→20:13)
[2019-12-10] MEDS: lamoTRIgine 25 MG TAB PO SCH ×2 (07:34→20:12)
[2019-12-10] MEDS: ATORVASTATIN 40 MG TAB PO SCH (07:34)
[2019-12-10] MEDS: ASPIRIN 81 MG ECTAB PO SCH (07:35)
[2019-12-10] MEDS: CLOPIDOGREL BISULFATE 75 MG TAB PO SCH (07:35)
[2019-12-10] MEDS: ENOXAPARIN INJ 40 MG/0.4 ML SYR SQ SCH (07:43)
[2019-12-10] MEDS: BACLOFEN 10 MG TAB PO SCH ×2 (07:43→20:13)
[2019-12-10 11:52] LABS: BUN Creatinine Ratio 6.3 (10-20); Calcium 6.8 mg/dl (8.5-10.1); Creatinine Clr Calc Pharmacy 106.5 ml/min; Est GFR (African American) 105.5; Potassium 3.2 mmol/L (3.5-5.1)
[2019-12-10 11:53] LABS: Magnesium 2.2 mg/dl (1.8-2.4); Phosphorus 2.5 mg/dl (2.5-4.9)
--- NOTE | 2019-12-10 14:05 | Hospitalist Progress Note ---
Date of Service December 10, 2019 Assessment & Plan (1) Fever of unknown origin: 64 y/o M w/ hx of CVA (11/20/19), seizures, hypothyroidism, adrenal insufficiency who presents w/intermittent fevers since 11/20. Fever of Unknown Origin - fever first started on 11/21/19. 11/21/19 BCx (outside facility) MSSA+. vanc/cefepime+flagyl transitioned to Nafcillin on 11/22/19 after ID eval - more recent bout of fever returned past 4-5 days prior to current 12/08/19 admission, peak of 102.7F home temp - afebrile during current hospitalization - extensive negative evaluation for possible sources of infection: current blood cx negative after 24 horus, PICC line site without erythema/drainage, TTE negative for signs of vegetations/endocarditis, no respiratory or GI illness symptoms, oliveros infact without urinary symptoms and inconclusive UA, lyme igg igm neg, COVID-19 negative - elevated ESR/CRP, which could represent inflammatory or infectious etiogies. - normal procalc less suggestive of bacterial infection - continue nafcillin IV for now - consulted ID today for further recommendations regarding choice antibiotic and need for PICC line and oliveros - Tylenol PRN for fever Electrolyte Abnormalities - K 2.9 despite IV repletion on 12/08, Phos 1.8 - given history of limited PO intake before hospitalization, as well as Albumin 2.4, above abnormalities likely secondary to refeeding syndrome - K Phos IV given today; now K 3.2, Phos 2.5 - Ordered K 40mEq PO for further repletion - Encourage adequate PO intake - trend BMP, Mg, Phos in AM History of CVA (11/20/19) w/ residual L hemiparesis - multifocal ischemic CVA of the right anterior choroidal artery territory, right amygdala, head of the hippocampus, posterior limb and retrolenticular portion fo the right IC, lateral thalamus on 11/20/19. He has dense left he miparesis, facial droop and dysarthria secondary to his CVA. - at baseline currently - continue Aspirin 81 mg PO daily and Plavix 75 mg PO daily - Continue History of Seizures - Continue Lamictal 50 qam 75 qhs. Tegretol 400 BID. Hypothyroidism - continue Synthroid 150 mcg PO daily FENGI: Regular DietSpeech/Swallow evaluation for further feeding recommendations. FL video swallow pending. DVT prophylaxis: Lovenox code status:full code dispo: med/surg, will return to [facility] on discharge pending ID recommendations and medically stable Admission and Anticipated Discharge Date Admission Date: December 08, 2019 Supervising Physician Co-Signing Physician Notes Attending attestation Pt seen and examined in concert with Dr. Mcmanus. In agreement with the documented findings as noted in the resident documentation with any exceptions or additions as noted here. Somnolent today, but easily arousable and feeling somewhat less weak overall. Tolerating POI well, though reports had not been previously (limited intake, though facility provided meals) On examination, S1/S2 nl RRR no MCG. CTAB. Abd NT/ND BS+ve. Left sided hemiparesis as noted. No TTP at PICC site Persistent fever - without fevers on nafcillin - cultures still pending without growth as yet. Will c/s ID for further recommendations in expectation of negative cultures Hypokalemia, hypophosphatemia - replete IV/PO, encourage POI, monitor labs Else see resident documentation as noted.\ Subjective No acute events overnight. Nafcillin IV infusing via right PICC. Patient eating and drinking much better since hospitalized and reports that he has had decreased appetite with minimal PO intake at [facility] before being hospitalized. Denies fever/chills, chest pain, shortness of breath, abdominal pain. Review of Systems Constitutional: as per Subjective / HPI Respiratory: as per Subjective / HPI; no cough Cardiovascular: as per Subjective / HPI; no palpitations Gastrointestinal: as per Subjective / HPI; no nausea and no vomiting Physical Exam Constitutional: somnolent throughout exam but verbally arousable Respiratory: normal respiratory effort, lungs clear to auscultation Cardiovascular: RRR, no murmur, no edema Gastrointestinal (Abdomen): normal bowel sounds, soft, nontender, no hepatosplenomegaly Skin: no rashes, warm and dry Neurologic: + focal motor deficit (L-sided weakness with 1/5 strength, sensation intact, left facial droop) Results & Data Results & Data ([facility]) Vital Signs (Past 12 Hours) Vital Signs Temp Pulse Resp BP Pulse Ox 12/10/19 07:00 36.7 C 76 20 113/73 100
[2019-12-10] MEDS ORDERED: POTASSIUM CHLORIDE 20 MEQ TABCR PO STA (14:24)
[2019-12-10] MEDS: TAMSULOSIN HCL 0.4 MG CAP PO SCH (15:11)
[2019-12-10] MEDS: FAMOTIDINE 40 MG TABLET PO SCH (20:14)
[2019-12-10] MEDS: NORTRIPTYLINE HCL 25 MG CAP PO SCH (20:14)
[2019-12-11] MEDS: NAFCILLIN SODIUM 2,000 MG in DEXTROSE 5% 100 ML IV SCH ×3 (04:06→11:34)
[2019-12-11] MEDS: LEVOTHYROXINE SODIUM 150 MCG TABLET PO SCH (05:17)
[2019-12-11 06:28] LABS: Basophils # (auto) 0.03 K/uL (0-0.2); Basophils % (auto) 0.5 %; Eosinophils # (auto) 0.22 K/uL (0-0.5); Eosinophils % (auto) 3.8 %; Hematocrit (blood only) 27.5 % (42-52); Hemoglobin 9.4 g/dL (14.0-18.0); Immature Granulocytes # (auto) 0.01 K/uL (0.00-0.02); Immature Granulocytes % (auto) 0.2 %; Lymphocytes # (auto) 1.62 K/uL (1.2-3.4); Lymphocytes % (auto) 28.1 %; Mean Corpuscular Hemoglobin 29.7 pg (25-34); Mean Corpuscular Hgb Conc 34.2 g/dL (32-36); Mean Corpuscular Volume 86.8 fL (80-100); Mean Platelet Volume 8.2 fL (7.4-10.4); Monocytes # (auto) 0.79 K/uL (0.11-0.59); Monocytes % (auto) 13.7 %; Neutrophils # (auto) 3.09 K/uL (1.4-6.5); Neutrophils % (auto) 53.7 %; Platelet Count 317 K/uL (130-400); RDW Coefficient of Variation 13.5 % (11.5-14.5); RDW Standard Deviation 43.2 fL (36.4-46.3); Red Blood Count 3.17 M/uL (4.7-6.1); White Blood Count 5.76 K/uL (4.8-10.8)
[2019-12-11 07:05] LABS: BUN Creatinine Ratio 4.6 (10-20); Calcium 6.7 mg/dl (8.5-10.1); Creatinine Clr Calc Pharmacy 114.2 ml/min; Est GFR (African American) 108.5; Est GFR (Non-African American) 93.6; Magnesium 1.9 mg/dl (1.8-2.4); Phosphorus 1.8 mg/dl (2.5-4.9); Potassium 2.7 mmol/L (3.5-5.1)
[2019-12-11] MEDS ORDERED: POTASSIUM PHOS 3 MMOL/1 ML INFUSION IV STA (07:45)
[2019-12-11] MEDS: carBAMazepine 200 MG TABLET PO SCH (07:46)
[2019-12-11] MEDS: GABAPENTIN 300 MG CAP PO SCH ×2 (07:46→13:43)
[2019-12-11] MEDS: BACLOFEN 10 MG TAB PO SCH (07:46)
[2019-12-11] MEDS: DOCUSATE SODIUM 100 MG CAP PO SCH (07:46)
[2019-12-11] MEDS: lamoTRIgine 25 MG TAB PO SCH (07:46)
[2019-12-11] MEDS: ATORVASTATIN 40 MG TAB PO SCH (07:47)
[2019-12-11] MEDS: ASPIRIN 81 MG ECTAB PO SCH (07:47)
[2019-12-11] MEDS: CLOPIDOGREL BISULFATE 75 MG TAB PO SCH (07:47)
[2019-12-11] MEDS: HYDROCORTISONE 10 MG TAB PO SCH ×2 (07:47→11:35)
[2019-12-11] MEDS: ENOXAPARIN INJ 40 MG/0.4 ML SYR SQ SCH (07:48)
[2019-12-11] MEDS ORDERED: POTASSIUM PHOSPHATE 21 MMOL in SODIUM CHLORIDE 0.9% 500 ML IV STA (07:52)
[2019-12-11] MEDS ORDERED: POTASSIUM CHLORIDE 20 MEQ TABCR PO SCH (09:00)
--- NOTE | 2019-12-11 12:52 | Fluoroscopy Report ---
FL video swallow HISTORY: Stroke. Dysphagia. Possible aspiration TECHNIQUE: Video fluoroscopic evaluation of swallowing was performed in the AP and lateral projection s by the speech pathology staff. The patient is fed nectar-thick and thin liquid barium, a barium coa max wafer, and barium pudding. FLUOROSCOPY TIME: 4.2 minutes. NUMBER OF FLUOROSCOPY IMAGES: 0 COMPARISON STUDY: None FINDINGS: 1. Swallowing thin liquids, there is silent trace aspiration. When sign neck and thick liquids, there was silent aspiration. There is no aspiration when swallowing pudding or a cracker with paste. Note is made of premature leakage. IMPRESSION: 1. Trace silent aspiration of thin and nectar thick liquids. 2. Please see the speech pathologist report for detailed findings and recommendations. ACT 112: Negative or not required by law. Electronically signed by: Oleg Bishop M.D. 12/11/2019 12:51 PM
--- NOTE | 2019-12-11 15:10 | Discharge Summary ---
Date of Service December 11, 2019 Admission HPI Per Admitting Provider Hitesh Mancia is a pleasant 64yo male with complex medical history to include muscle spasms, partial complex seizure, hypothyroidism, adrenal insufficiency, history of multifocal ischemic CVA of the right anterior choroidal artery territory, right amygdala, head of the hippocampus, posterior limb and retrolenticular portion fo the right IC, lateral thalamus on 11/20/19. He has dense left hemiparesis, facial droop and dysarthria secondary to his CVA. Patient was initially seen at [facility] as a Code Stroke then was transferred to [facility] for possible neurological intervention. Patient developed fever on 11/21/19. Blood cultures were drawn and were positive for MSSA. A TTE was perfomed with no significant valvular abnormalities. He was treated with Vancomycin/Cefepime and Flagyl. Patient continued to have int ermittent fevers. He was evaluated by ID at [facility] on 11/21. He was started on Nafcillin 2gm IV q 4 hours. Patient was discharged from [facility] to rehab facility and then to [facility]. He has had intermittent fevers over the last 4-5 days - as high as 102.7 last night. Patient also reports shaking chills and fatigue as well as a slight sore throat, occasional diarrhea and a slight cough. Otherwise, patient with no complaints. Specifically denies RYAN/neck stiffness/facial pain/dental pain/CP/SOB/abdominal pain/nausea/vomiting/dysuria. He denies rashes, joint pain or swelling. He does have an indwelling Oliveros catheter and a PICC line (October 29). Patient recently had a PEG tube which was removed. He had aspiration of fluid from the left knee that was consistent with inflammatory process. He had unremarkable dental imaging as well. Patient states that he loved hiking prior to his stroke and spent a lot of time outdoors. No reported tick bites. ER Course: Cefepime/Vancomycin Admission Exam Per Admitting Provider General: patient resting comfortably, NAD, non-toxic in appearance, AA&O x 4 Skin: warm, dry, intact, no rashes HEENT: NC/AT, anicteric sclera, conjunctiva without injection, external ear normal to inspection and nontender, TM with no infection, nares patent, no facial tenderness or tooth pain, moist mucus membranes, dentition intact, no oropharyngeal lesions, neck supple, trachea midline, no LAD, no thyromegaly, no JVD, fundoscopic exam limited but no obvious issues noted in right eye - left fundoscopic exam limited Heart: +S1/S2, regular, no m/r/g, PICC line nontender Lungs: equal air entry bilaterally, no rales/rhonchi/wheezes Abd: +BS, soft, NT/ND, no masses/organomegaly/ascites, +Oliveros in place Ext: warm, 2+ pulses in UE/LE bilaterally, no clubbing/cyanosis or edema, +dark lesions on tips of fingers, non-tender ?Janeway lesions? Neuro:+left facial droop, +hemiparesis, +dysarthria Principal Diagnosis Bacteremia, fever of unknown origin Discharge Exam General: Alert. No acute distress, laying in bed Skin: No noted rashes or bruises Psych: Appropriate mood and affect Neuro: +left sided UE and LE weakness HEENT: NC/AT Chest: Nontender to palpation. CV: RRR, Normal s1, s2. No murmurs appreciated Resp: Breath sounds clear bilaterally, no increased effort of breathing. No crackles/rhonchi/rales. Abdomen: Soft, nontender, nondistended. No guarding. Extremities: No edema in lower extremities bilaterally. Discharge Data Allergies Allergy/AdvReac Type Severity Reaction Status Date / Time doxepin Allergy itchy Verified 11/20/19 14:01 amoxicillin [From Augmentin] AdvReac Intermediate diarrhea / Verified 11/20/19 14:01 hx c diff clavulanic acid AdvReac Intermediate diarrhea / Verified 11/20/19 14:01 [From Augmentin] hx c diff Consultations 12/08/19 22:08 ED Decision to Admit Stat 12/10/19 11:18 Consult Infectious Diseases Routine Ordered Studies 12/08/19 18:35 CT abd pelvis IV con only Stat 12/11/19 00:00 FL video swallow Routine Hospital Course (1) Fever of unknown origin: 64 y/o M w/ hx of CVA (11/20/19), seizures, hypothyroidism, adrenal in sufficiency who presents w/intermittent fevers since 11/20. RECOMMENDATIONS -Continue Nafcillin 2000mg IV q4h for 42 days total to end on January 02 2020 per [facility] ID recommendations. -continue to monitor BMP, Mag and Phos for continuous repletion. Fever of Unknown Origin - fever first started on 11/21/19. 11/21/19 BCx (outside facility) MSSA+. vanc/cefepime+flagyl transitioned to Nafcillin on 11/22/19 after ID eval - more recent bout of fever returned past 4-5 days prior to current 12/08/19 admission, peak of 102.7F home temp - afebrile during current hospitalization - extensive negative evaluation for possible sources of infection: current blood cx negative after 48 hours, PICC line site without erythema/drainage, TTE negative for signs of vegetations/endocarditis, no respiratory or GI illness symptoms, oliveros intact without urinary symptoms and inconclusive UA, lyme IgG, IgM neg, COVID-19 negative - elevated ESR/CRP, which could represent inflammatory or infectious etiologies. - normal procalcitonin less suggestive of bacterial infection - continue nafcillin IV for 42 days total to end on 01/02/2020 per Infectious Disease recommendations - Tylenol PRN for fever Electrolyte Abnormalities - K 2.9 despite IV repletion on 12/08, Phos 1.8 - given history of limited PO intake before hospitalization, as well as Albumin 2.4, above abnormalities likely secondary to refeeding syndrome - K Phos IV given today - Ordered K 40mEq PO BID for further potassium repletion - Encourage adequate PO intake - trend BMP, Mg, Phos History of CVA (11/20/19) w/ residual L hemiparesis - multifocal ischemic CVA of the right anterior choroidal artery territory, right amygdala, head of the hippocampus, posterior limb and retrolenticular portion fo the right IC, lateral thalamus on 11/20/19. He has dense left hemiparesis, facial droop and dysarthria secondary to his CVA. - at baseline currently - continue Aspirin 81 mg PO daily and Plavix 75 mg PO daily History of Seizures - Continue Lamictal 50 qam 75 qhs. Tegretol 400 BID. Hypothyroidism - continue Synthroid 150 mcg PO daily Total Time Total Time Spent Total Time Spent (In Minutes): <30 Discharge Plan Discharge Items Patient Disposition: Transfer [facility] Fac Reason For Visit: FEVER Discharge Diagnosis: Fever of unknown origin Bacteremia Activity: Per Instructions section Non-emergency contact: Primary Care Provider Call non-emergency contact if: your symptoms worsen and you have a fever Follow-up/Referrals: Wilfred Minor III, MD [Primary Care Provider] - Diet: Regular Liquid Consistency: [place] thick Addtl Attending Provider Instructions: 64 y/o M w/ hx of CVA (11/20/19), seizures, hypothyroidism, adrenal insufficien cy who presents w/intermittent fevers since 11/20. RECOMMENDATIONS -Continue Nafcillin 2000mg IV q4h for 42 days total to end on January 02 2020 per [facility] ID recommendations. -continue to monitor BMP, Mag and Phos for continuous repletion. Fever of Unknown Origin - fever first started on 11/21/19. 11/21/19 BCx (outside facility) MSSA+. vanc/cefepime+flagyl transitioned to Nafcillin on 11/22/19 after ID eval - more recent bout of fever returned past 4-5 days prior to current 12/08/19 admission, peak of 102.7F home temp - afebrile during current hospitalization - extensive negative evaluation for possible sources of infection: current blood cx negative after 48 hours, PICC line site without erythema/drainage, TTE negative for signs of vegetations/endocarditis, no respiratory or GI illness symptoms, oliveros intact without urinary symptoms and inconclusive UA, lyme IgG, IgM neg, COVID-19 negative - elevated ESR/CRP, which could represent inflammatory or infectious etiologies. - normal procalcitonin less suggestive of bacterial infection - continue nafcillin IV for 42 days total to end on 01/02/2020 per Infectious Disease recommendations - Tylenol PRN for fever Electrolyte Abnormalities - K 2.9 despite IV repletion on 12/08, Phos 1.8 - given history of limited PO intake before hospitalization, as well as Albumin 2.4, above abnormalities likely secondary to refeeding syndrome - K Phos IV given today - Ordered K 40mEq PO BID for further potassium repletion - Encourage adequate PO intake - trend BMP, Mg, Phos History of CVA (11/20/19) w/ residual L hemiparesis - multifocal ischemic CVA of the right anterior choroidal artery territory, right amygdala, head of the hippocampus, posterior limb and retrolenticular portion fo the right IC, lateral thalamus on 11/20/19. He has dense left hemiparesis, facial droop and dysarthria secondary to his CVA. - at baseline currently - continue Aspirin 81 mg PO daily and Plavix 75 mg PO daily History of Seizures - Continue Lamictal 50 qam 75 qhs. Tegretol 400 BID. Hypothyroidism - continue Synthroid 150 mcg PO daily Pending Studies at Discharge: No Stand-Alone Forms: My [facility] Skilled Items Patient informed of condition?: Yes DNR: No Discharge Level of Care: Skilled Communicable Disease: No Discharge Prognosis: Stable Lines: PICC Urinary Catheter: Yes Medications and DC Order Prescriptions: New nafcillin 2 gram recon soln 2 g IV Q4H 12 Days RF: 0 Continued gabapentin 300 mg capsule 300 mg PO TID Qty: 90 RF: 2 nortriptyline 25 mg capsule 50 mg PO HS Qty: 60 RF: 3 levothyroxine [Euthyrox] 150 mcg tablet 150 mcg PO QAM RF: 0 carbamazepine 200 mg Tablet 400 mg PO BID 30 Days Qty: 120 RF: 3 lamotrigine [Lamictal] 25 mg tablet 75 mg PO HS RF: 0 hydrocortisone [Cortef] 5 mg Tablet 5 mg PO DAILY RF: 0 atorvastatin 40 mg Tablet 40 mg PO DAILY RF: 0 tizanidine 2 mg Tablet 4 mg PO Q6H PRN (Reason: Muscle Spasm) RF: 0 clopidogrel 75 mg Tablet 75 mg PO DAILY RF: 0 hydrocodone-acetaminophen [Gifford] 10-325 mg Tablet 1 tab PO BID PRN (Reason: Pain, Severe) RF: 0 lamotrigine [Lamictal] 25 mg Tablet 50 mg PO QAM RF: 0 ergocalciferol (vitamin D2) 50,000 unit Tablet 50,000 unit PO DIRECTED RF: 0 famotidine 20 mg Tablet 40 mg PO HS RF: 0 nafcillin 2 gram Recon Soln 2 g IV Q4H RF: 0 tamsulosin 0.4 mg Capsule 0.4 mg PO QDD RF: 0 baclofen 10 mg tablet 10 mg PO BID RF: 0 docusate sodium 100 mg Capsule 100 mg PO BID RF: 0 aspirin 81 mg Tablet,Chewable 81 mg PO DAILY RF: 0 hydrocortisone 10 mg Tablet 25 mg PO DAILY RF: 0 enoxaparin 40 mg/0.4 mL Syringe 40 mg SUBCUT DAILY RF: 0 Lactobacillus acidoph-L.bulgar [Floranex] 1 million cell Tablet 1 tab PO DAILY RF: 0 benzocaine-menthol 15-3.6 mg Lozenge 1 josi PO Q2H PRN (Reason: Sore Throat) RF: 0 baclofen 10 mg tablet 10 mg PO BID PRN (Reason: Muscle Spasm) RF: 0 acetaminophen 325 mg Tablet 650 mg PO Q4H PRN (Reason: Fever Or Pain) RF: 0 Discharge Orders: Discharge Order (Routine); Ordered 12/11/19 Ordered By: Isis Rodriguez Admission Data Admit Date/Time: 12/08/19 22:43 Attending Provider: Marco Stone Admit Provider: Tammy Zamarripa Primary Care Provider: Wilfred Minor III Other Providers: Tammy Zamarripa ; [facility] ; Juan David Serrano ; Ghazal Liz ; Zeus Zamarripa I. ; Drew Sewell II ; Nicolasa Murillo ; Rehan Christiansen ; Chato Fong Other Interventions: Discharge Summary Assessment (RN) Last Done: 12/11/19 14:51 Supervising Physician Co-Signing Physician Notes I personally examined the patient and verified all brunner points of history and exam, discussed case, and agree with decision making with Dr Rodriguez. feeling better. wants to get back to rehab. vitals noted nad heent nc at mmm breathing unlabored ongoing L sided weakness. fevers -no new infections noted -stable for rehab -conitnue nafcillin -otherwise as above Resident Activity Tracking Resident Involvement: Resident Care Provided Care Provided: Adult Hospital Medicine
--- NOTE | 2019-12-11 18:41 | Billing Data ---
Date of Service December 11, 2019 Coding Level of Care Code D/C Day Management <30 mins
--- NOTE | 2019-12-11 18:42 | Billing Data ---
Date of Service December 11, 2019 Coding Level of Care Code D/C Day Management <30 mins
[2019-12-13 00:14] LABS: Babesia microti IgG <1:64 titer (<1:64)
== END 2019-12-11 16:27 | DRG 864 ==
LOC: ED 15:28 → 2N 22:43 → SUATTDRO 22:43 → 2N 23:53

== ENCOUNTER 2021-01-12 09:54 | Observation (INO) ==
[2021-01-12] MEDS ORDERED: SODIUM CHLORIDE 0.9% 1000ML 1,000 ML IV ONE ×2 (11:10→12:47)
[2021-01-12 11:11] LABS: Basophils # (auto) 0.03 K/uL (0-0.2); Basophils % (auto) 0.7 %; Eosinophils % (auto) 2.3 %; Hematocrit (blood only) 34.5 % (42-52); Hemoglobin 11.4 g/dL (14.0-18.0); Immature Granulocytes # (auto) 0.01 K/uL (0.00-0.02); Immature Granulocytes % (auto) 0.2 %; Lymphocytes # (auto) 1.56 K/uL (1.2-3.4); Lymphocytes % (auto) 36.2 %; Mean Corpuscular Hemoglobin 29.2 pg (25-34); Mean Corpuscular Volume 88.5 fL (80-100); Mean Platelet Volume 8.4 fL (7.4-10.4); Monocytes # (auto) 0.67 K/uL (0.11-0.59); Monocytes % (auto) 15.5 %; Neutrophils # (auto) 1.94 K/uL (1.4-6.5); Neutrophils % (auto) 45.1 %; Platelet Count 200 K/uL (130-400); RDW Coefficient of Variation 12.6 % (11.5-14.5); RDW Standard Deviation 40.4 fL (36.4-46.3); White Blood Count 4.31 K/uL (4.8-10.8)
--- NOTE | 2021-01-12 11:21 | Emergency Department Note ---
Impression & Plan Acute hypotension, Weakness, Tegretol toxicity ED Provider Note NAME: NICOLE FLORES AGE: 65 SEX: M : 1955 ARRIVES VIA: Walk-In INFORMANT: Patient, ED PROVIDER(S): Bertin Guerra DO CHIEF COMPLAINT: Low blood pressure HPI: The patient is a 65-year-old male who has a history of previous craniotomy and stroke secondary to a large meningioma that was invasive and abutting the carotids who presented to the emergency department for generalized weakness. The patient states that he does not take any blood pressure medication but does take multiple medications for seizure disorder because of his previous craniotomy. The patient states that he had a similar episode when he was staying with his brother. No definite source could be, found for his hypotension but he was able to be treated and was sent home. The patient recently moved back to the area after rehab. He states he had no fever. He denies having any chest pain or difficulty breathing. He denies having abdominal pain. He does complain of some constipation symptoms but states this is not new for him. He has had no rectal bleeding. He denies having any black or bloody bowel movements. He has had no recent dehydration. The patient states he is not been seen by his primary care physician for the symptoms. He states he noticed the symptoms worsening over the last 24 hours when he was trying to get out and walk around his neighborhood. ROS: See above HPI for pertinent positives & negatives. A total of 10 systems reviewed and were otherwise negative. PAST MEDICAL HISTORY: See Below PAST SURGICAL HISTORY: See Below FAMILY HISTORY: See Below SOCIAL HISTORY: See Below HOME MEDICATIONS: See Below ALLERGIES: See Below VITALS: See Below PHYSICAL EXAMINATION: GENERAL: Patient is awake alert in no acute distress patient is resting comfortably and showing no signs of anxiety EYES: The conjunctivae are clear. The pupils are round and reactive. EARS, NOSE, MOUTH AND THROAT: The nose is without any evidence of any deformity. Mucous membranes are moist. NECK: The neck is nontender and supple. RESPIRATORY: Normal respiratory effort is noted there is no evidence of wheezing rhonchi or rales CARDIOVASCULAR: Regular rate and rhythm noted there no murmurs rubs or gallops normal S1 normal S2. GASTROINTESTINAL: The abdomen is soft. Abdomen is nontender. MUSCULOSKELETAL/EXTREMITIES: There is no evidence of gross deformity full range of motion is noted in the hips and shoulders. SKIN: There is no obvious evidence of any rash. There are no petechiae, pallor or cyanosis noted. NEUROLOGIC: Patient is awake alert and oriented x3. MEDICAL DECISION MAKING: The patient is a 65-year-old male who presented to the emergency department for an evaluation of generalized weakness and difficulty ambulating. The patient was found to be hypotensive. He was not tachycardic or showing other signs of shock. I discussed the patient's laboratory and radiographic studies with him. He was treated with IV fluids in the emergency department. The patient was found to have an elevated Tegretol level. I do feel this could explain the patient's symptoms. I discussed his condition with the on-call [facility] hospitalist. They have agreed to evaluate the patient in the emergency de partment for further management and disposition. Triage Nursing notes reviewed. Prior medical records reviewed Vital Signs: reviewed and remarkable for hypotension. Differential diagnosis: Infection, dehydration, metabolic abnormality, hypo/hyperglycemia, electrolyte disturbance, anemia, hypoxia, cardiac sources, intracerebral event, toxicologic, neurologic, as well as other pathologies. ER treatment provided: See below Diagnostics interpreted by me: ECG: EKG was obtained in the emergency department. My interpretation is sinus rhythm at 77 bpm. First-degree AV block was noted. Nonspecific ST segment depressions were noted. This was compared to a tracing from December 072019. No significant changes were noted. Cardiac Monitoring: An order was placed for continuous cardiac monitoring. The monitor shows a rate of 65 bpm with sinus rhythm. Laboratory studies: As stated above and show below. Imaging studies: See below Consultation(s): I discussed this case with Dr. Pinzon who is on-call for the [facility] hospitalist group. He will evaluate the patient in the emergency department for further management. Past Med/Surg History Medical History Central sleep apnea Cognitive disorder Depression Epilepsy On Tegretol/Epitol Gout Hernia History of meningioma of the brain BASAL SKULL. PT HAS HAD MULTIPLE CRAINOTOMY PROCEDURES AND 2 GAMMA KNIFE PRO CEDURES. CONTINUES TO FOLLOW WITH DR. 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 History of cataract extraction with lens replacement History of craniotomy X4 INCLUDING GAMMA KNIFE SURGERY X2. 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 1996, 1997, 1998, 2001, AND 2002 History of eye surgery LEFT, R/T MUSCLE REPAIR History of hip surgery [place] PROCEDURE WITH DR. 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 Beliefs That Will Affect Care: None marital status: Current Living Situation: Rehab current occupational status: unemployed Feels Safe at Home: Yes Assistive Devices: None Allergies Allergies Allergy/AdvReac Type Severity Reaction Status Date / Time doxepin Allergy itchy Verified 01/12/21 12:44 amoxicillin [From Augmentin] AdvReac Intermediate diarrhea / Verified 01/12/21 12:44 hx c diff clavulanic acid AdvReac Intermediate diarrhea / Verified 01/12/21 12:44 [From Augmentin] hx c diff Home Meds Home Medications Medication Instructions Recorded Confirmed testosterone (AndroGel) 1 packet TRANSDERMAL DAILY 05/01/20 01/12/21 acetaminophen 325 mg tablet 650 mg PO Q6H PRN tab 06/07/20 01/12/21 hydrocortisone 10 mg tablet 10 mg PO QAM 06/07/20 01/12/21 hydrocortisone 5 mg tablet (Cortef) 5 mg PO .afternoon tab 06/07/20 01/12/21 lanolin-mineral oil lotion 1 applic TOPICAL .COMPLEX 06/07/20 01/12/21 (Eucerin Original) atorvastatin 40 mg tablet (Lipitor) 40 mg PO DAILY 01/12/21 01/12/21 clopidogrel 75 mg tablet 75 mg PO QAM 01/12/21 01/12/21 ergocalciferol (vitamin D2) 1,250 50,000 unit PO WK 01/12/21 01/12/21 mcg (50,000 unit) capsule (Vitamin D2) finasteride 5 mg tablet 5 mg PO HS 01/12/21 01/12/21 lamotrigine 25 mg tablet (Lamictal) See Rx Instructions .ROUTE .COMPLEX 01/12/21 01/12/21 levothyroxine 150 mcg tablet 150 mcg PO QAM 01/12/21 01/12/21 (Synthroid) modafinil 200 mg tablet (Provigil) 200 mg PO DAILY PRN 01/12/21 01/12/21 Previous Rx's Medication Instructions Recorded famotidine 20 mg tablet 40 mg PO HS #180 tab 08/22/20 potassium chloride 20 mEq 40 meq PO BID #360 tab 08/22/20 tablet,extended release tamsulosin 0.4 mg capsule 0.4 mg PO QDD #90 cap 08/22/20 carbamazepine 200 mg tablet 400 mg PO BID 30 Days #120 tab 09/02/20 magnesium oxide 400 mg PO HS #90 tab 09/02/20 nortriptyline 25 mg capsule 50 mg PO HS #60 cap 09/02/20 baclofen 10 mg tablet 10 mg PO Q8H PRN #60 tab 10/16/20 gabapentin 300 mg capsule 300 mg PO TID #90 cap 12/24/20 Results & Data (ED) Vital Signs Vital Signs - 24 hr 01/12/21 10:11 01/12/21 11:21 01/12/21 12:00 Temperature 36.4 C L Temperature Source Temporal Artery Scan Pulse Rate 79 76 67 Pulse Rate from SpO2 Sensor 76 66 Respiratory Rate 18 17 14 Blood Pressure 96/62 L 110/76 115/72 Blood Pressure Mean 73 87 86 Blood Pressure Position Sitting Pulse Oximetry 100 100 100 Oxygen Delivery Method Room Air Sepsis Recent Fever Within 48 Hours No Sepsis New/Unexplained Change in Mental Status No Sepsis Action Taken by Nursing No Action Required 01/12/21 13:00 Temperature Temperature Source Pulse Rate 65 Pulse Rate from SpO2 Sensor 64 Respiratory Rate 13 Blood Pressure 105/75 Blood Pressure Mean 85 Blood Pressure Position Pulse Oximetry 100 Oxygen Delivery Method Sepsis Recent Fever Within 48 Hours Sepsis New/Unexplained Change in Mental Status Sepsis Action Taken by [facility] Medications Current Medication List: was personally reviewed by me Laboratory Data Attestation: I reviewed the patient's lab results. Result diagrams: 01/12/21 10:54 01/12/21 10:54 Lab Results 01/12/21 01/12/21 01/12/21 Range/Units 10:54 10:54 10:54 WBC 4.31 L (4.8-10.8) K/uL RBC 3.90 L (4.7-6.1) M/uL Hgb 11.4 L (14.0-18.0) g/dL Hct 34.5 L (42-52) % MCV 88.5 (80-100) fL MCH 29.2 (25-34) pg MCHC 33.0 (32-36) g/dL RDW Std Deviation 40.4 (36.4-46.3) fL RDW Coeff of Oniel 12.6 (11.5-14.5) % Plt Count 200 (130-400) K/uL MPV 8.4 (7.4-10.4) fL Immature Gran % (Auto) 0.2 % Neut % (Auto) 45.1 % Lymph % (Auto) 36.2 % [place] % (Auto) 15.5 % Eos % (Auto) 2.3 % Baso % (Auto) 0.7 % Neut # (Auto) 1.94 (1.4-6.5) K/uL Lymph # (Auto) 1.56 (1.2-3.4) K/uL [place] # (Auto) 0.67 H (0.11-0.59) K/uL Eos # (Auto) 0.10 (0-0.5) K/uL Baso # (Auto) 0.03 (0-0.2) K/uL Immature Gran # (Auto) 0.01 (0.00-0.02) K/uL PT 9.8 (9.0-12.0) Seconds INR 1.0 (0.9-1.1) APTT 29.1 (21.0-31.0) Seconds PTT Ratio 1.1 Sodium 139 (136-145) mmol/L Potassium 4.3 (3.5-5.1) mmol/L Chloride 112 H (98-107) mmol/L Carbon Dioxide 24 (21-32) mmol/L Anion Gap 3.0 (3-11) BUN 14 (7-18) mg/dl Creatinine 0.83 (0.6-1.4) mg/dl Est Cr Clr Drug Dosing Not Reportable Est GFR ( Amer) 107.8 ml/min Est GFR (Non-Af Amer) 93.0 ml/min BUN/Creatinine Ratio 17.2 (10-20) Glucose 88 (70-99) mg/dl Calcium 7.3 L (8.5-10.1) mg/dl Total Bilirubin 0.2 (0.2-1) mg/dl AST 14 L (15-37) U/L ALT 24 (12-78) U/L Alkaline Phosphatase 42 L (45-117) U/L Total Protein 6.5 (6.4-8.2) gm/dl Albumin 3.4 (3.4-5.0) gm/dl Globulin 3.1 (2.5-4.0) gm/dl Albumin/Globulin Ratio 1.1 (0.9-2) Carbamazepine (4-12) mcg/ml COVID-19 Eval Order SARS-CoV-2 (PCR) (Negative) 01/12/21 01/12/21 01/12/21 Range/Units 10:59 13:00 13:00 WBC (4.8-10.8) K/uL RBC (4.7-6.1) M/uL Hgb (14.0-18.0) g/dL Hct (42-52) % MCV (80-100) fL MCH (25-34) pg MCHC (32-36) g/dL RDW Std Deviation (36.4-46.3) fL RDW Coeff of Oniel (11.5-14.5) % Plt Count (130-400) K/uL MPV (7.4-10.4) fL Immature Gran % (Auto) % Neut % (Auto) % Lymph % (Auto) % [place] % (Auto) % Eos % (Auto) % Baso % (Auto) % Neut # (Auto) (1.4-6.5) K/uL Lymph # (Auto) (1.2-3.4) K/uL [place] # (Auto) (0.11-0.59) K/uL Eos # (Auto) (0-0.5) K/uL Baso # (Auto) (0-0.2) K/uL Immature Gran # (Auto) (0.00-0.02) K/uL PT (9.0-12.0) Seconds INR (0.9-1.1) APTT (21.0-31.0) Seconds PTT Ratio Sodium (136-145) mmol/L Potassium (3.5-5.1) mmol/L Chloride (98-107) mmol/L Carbon Dioxide (21-32) mmol/L Anion Gap (3-11) BUN (7-18) mg/dl Creatinine (0.6-1.4) mg/dl Est Cr Clr Drug Dosing Est GFR ( Amer) ml/min Est GFR (Non-Af Amer) ml/min BUN/Creatinine Ratio (10-20) Glucose (70-99) mg/dl Calcium (8.5-10.1) mg/dl Total Bilirubin (0.2-1) mg/dl AST (15-37) U/L ALT (12-78) U/L Alkaline Phosphatase (45-117) U/L Total Protein (6.4-8.2) gm/dl Albumin (3.4-5.0) gm/dl Globulin (2.5-4.0) gm/dl Albumin/Globulin Ratio (0.9-2) Carbamazepine 17.2 H* (4-12) mcg/ml COVID-19 Eval Order Covid19 at [facility] SARS-CoV-2 (PCR) NEGATIVE (Negative) Administered Medications Discontinued Medications Sodium Chloride (Nss 1000ml) 1,000 mls @ 999 mls/hr IV .Q1H1M ONE Stop: 01/12/21 12:10 Last Infusion: 01/12/21 13:04 Dose: 0 mls/hr Documented by: [id number] Admin: 01/12/21 11:25 Dose: 999 mls/hr Documented by: [id number] Sodium Chloride (Nss 1000ml) 1,000 mls @ 999 mls/hr IV .Q1H1M ONE Stop: 01/12/21 13:47 Last Admin: 01/12/21 13:07 Dose: 999 mls/hr Documented by: [id number] Imaging Data Radiologist's Impression: Chest X-Ray 01/12/21 10:17 XR chest 1V portable CLINICAL HISTORY: hypotension, weakness COMPARISON STUDY: Chest radiograph December 08, 2019. FINDINGS: Lung volumes are normal. Lungs are clear. There is no pneumothorax or pleural effusion. Cardiac size is normal. Mediastinal contours are normal. There is no evidence for pulmonary edema. Old bilateral rib fractures are incidentally noted. IMPRESSION: No acute cardiopulmonary findings. ACT 112: Negative or not required by law. Electronically signed by: Zac Klein M.D. 01/12/2021 11:20 AM Discharge Plan Visit Data Chief Complaint: Hypotension Stated Complaint: LOW BLOOD PRESSURE ED Provider: Bertin Guerra Discharge Problem: Acute hypotension, Weakness, Tegretol toxicity Patient Disposition: Being Evaluated by Hospitalist Forms Stand Alone Forms: My [facility] Prescriptions Prescriptions: No Action famotidine 20 mg tablet 40 mg PO HS Qty: 180 RF: 3 potassium chloride 20 mEq tablet extended release 40 meq PO BID Qty: 360 RF: 3 tamsulosin 0.4 mg capsule 0.4 mg PO QDD Qty: 90 RF: 3 carbamazepine 200 mg tablet 400 mg PO BID 30 Days Qty: 120 RF: 3 nortriptyline 25 mg capsule 50 mg PO HS Qty: 60 RF: 3 magnesium oxide 400 mg magnesium tablet 400 mg PO HS Qty: 90 RF: 3 baclofen 10 mg tablet 10 mg PO Q8H PRN (Reason: Hemiplegia) Qty: 60 RF: 0 gabapentin 300 mg capsule 300 mg PO TID Qty: 90 RF: 2 testosterone [AndroGel] 1 % (25 mg/2.5gram) gel in packet 1 packet transdermal DAILY RF: 0 Eucerin Original Lotion 1 applic topical .COMPLEX RF: 0 acetaminophen 325 mg tablet 650 mg PO Q6H PRN (Reason: Fever Or Pain) RF: 0 hydrocortisone 10 mg tablet 10 mg PO QAM RF: 0 hydrocortisone [Cortef] 5 mg tablet 5 mg PO .afternoon RF: 0 levothyroxine [Synthroid] 150 mcg tablet 150 mcg PO QAM RF: 0 ergocalciferol (vitamin D2) [Vitamin D2] 1,250 mcg (50,000 unit) capsule 50,000 unit PO WK RF: 0 atorvastatin [Lipitor] 40 mg tablet 40 mg PO DAILY RF: 0 clopidogrel 75 mg tablet 75 mg PO QAM RF: 0 lamotrigine [Lamictal] 25 mg tablet See Rx Instructions .ROUTE .COMPLEX RF: 0 modafinil [Provigil] 200 mg tablet 200 mg PO DAILY PRN (Reason: PRN) RF: 0 finasteride 5 mg tablet 5 mg PO HS RF: 0 Referrals Referrals: Wilfred Minor III, MD [Primary Care Provider] -
--- NOTE | 2021-01-12 11:21 | XRay Report ---
XR chest 1V portable CLINICAL HISTORY: hypotension, weakness COMPARISON STUDY: Chest radiograph December 08, 2019. FINDINGS: Lung volumes are normal. Lungs are clear. There is no pneumothorax or pleural effusion. Car diac size is normal. Mediastinal contours are normal. There is no evidence for pulmonary edema. Old b ilateral rib fractures are incidentally noted. IMPRESSION: No acute cardiopulmonary findings. ACT 112: Negative or not required by law. Electronically signed by: Zac Klein M.D. 01/12/2021 11:20 AM
[2021-01-12 11:26] LABS: Partial Thromboplastin Ratio 1.1; Partial Thromboplastin Time 29.1 Seconds (21.0-31.0); Prothrombin Time 9.8 Seconds (9.0-12.0)
[2021-01-12 11:30] LABS: Alanine Aminotransferase 24 U/L (12-78); Albumin Level 3.4 gm/dl (3.4-5.0); Aspartate Aminotransferase 14 U/L (15-37); BUN Creatinine Ratio 17.2 (10-20); Blood Urea Nitrogen 14 mg/dl (7-18); Calcium 7.3 mg/dl (8.5-10.1); Carbon Dioxide 24 mmol/L (21-32); Chloride 112 mmol/L (98-107); Est GFR (African American) 107.8 ml/min; Glucose 88 mg/dl (70-99); Potassium 4.3 mmol/L (3.5-5.1); Sodium 139 mmol/L (136-145)
[2021-01-12 11:33] LABS: Albumin Globulin Ratio 1.1 (0.9-2); Alkaline Phosphatase 42 U/L (45-117); Bilirubin,Total 0.2 mg/dl (0.2-1); Globulin 3.1 gm/dl (2.5-4.0); Total Protein 6.5 gm/dl (6.4-8.2)
--- NOTE | 2021-01-12 14:01 | History & Physical Report ---
Date of Service January 12, 2021 Assessment & Plan (1) Acute hypotension: Plan: Unclear etiology. Resolved with IV fluids. ?due to his adrenal insufficiency and need to be more consistent with his afternoon dosing. Cortisol level pending. Give his usual hydrocortisone 5mg PO now. Orthostatics Qshift starting from tomorrow Observe on telemetry to monitor for arrhythmia (2) Carbamazepine toxicity: Plan: Unclear if his high level is truly causing a problem. Will hold for now and repeat level in AM. Consult neurology for dosing advice moving forward. (3) Localization-related (focal) (partial) symptomatic epilepsy and epileptic syndromes with complex partial seizures, intractable, without status epilepticus: Plan: Continue lamotrigine (4) Panhypopituitarism: Plan: Continue levothyroxine, testosterone and hydrocortisone (5) Adhesive capsulitis of left shoulder: Plan: Noted on exam, PT (6) Occlusion of right carotid artery: Plan: Continue Plavix and atorvastatin Plan: VTE Prophylaxis - low risk, chemical prophylaxis deferred Diet - regular Disposition - observation status to med/tele Admission and Anticipated Discharge Date Admission Date: January 12, 2021 History of Present Illness Chief Complaint: Hypotension Primary Care Provider: Wilfred Minor MD Hitesh Mancia is a 65 year old male with previous craniotomy and central adrenal insufficiency who presents to the ER with hypotension. He recently moved back to the area after living with his brother for rehabilitation. He reports having a similar episode while living with his brother for which he went ot the ER and was given IV fluids but no definitive diagnosis was made. Both episodes occurred in the morning and he was hypotensive at the time. He just reports having a hard time walking and being unbalanced this morning. He staggered backwards in the living room and decided to call for an ambulance as he was concern about his risk of falling and hurting himself In the ER his carbamazepine level was noted to be elevated. He reports the last time his dose was increased was when he had his stroke. His last seizure was 10 years ago. He was hypotensive on arrival 96/62. He reports taking all his usual morning medications. He sometimes does not take his afternoon dose of hydrocortisone however depending on how much activity he is doing and varies this dose between 2.5-5mg. He was given 2L NSS bolus in the ER and referred to medicine for admission and ongoing management of weakness, hypotension and elevated carbamazepine levels. Allergies Allergy/AdvReac Type Severity Reaction Status Date / Time doxepin Allergy itchy Verified 01/12/21 12:44 amoxicillin [From Augmentin] AdvReac Intermediate diarrhea / Verified 01/12/21 12:44 hx c diff clavulanic acid AdvReac Intermediate diarrhea / Verified 01/12/21 12:44 [From Augmentin] hx c diff Home Medications Medication Instructions Recorded Confirmed Type testosterone (AndroGel) 1 packet TRANSDERMAL DAILY 05/01/20 01/12/21 History acetaminophen 325 mg tablet 650 mg PO Q6H PRN tab 06/07/20 01/12/21 History hydrocortisone 10 mg tablet 10 mg PO QAM 06/07/20 01/12/21 History hydrocortisone 5 mg tablet (Cortef) 5 mg PO .afternoon tab 06/07/20 01/12/21 History lanolin-mineral oil lotion 1 applic TOPICAL .COMPLEX 06/07/20 01/12/21 History (Eucerin Original) famotidine 20 mg tablet 40 mg PO HS #180 tab 08/22/20 01/12/21 Rx potassium chloride 20 mEq 40 meq PO BID #360 tab 08/22/20 01/12/21 Rx tablet,extended release tamsulosin 0.4 mg capsule 0.4 mg PO QDD #90 cap 08/22/20 01/12/21 Rx carbamazepine 200 mg tablet 400 mg PO BID 30 Days #120 tab 09/02/20 01/12/21 Rx magnesium oxide 400 mg PO HS #90 tab 09/02/20 01/12/21 Rx nortriptyline 25 mg capsule 50 mg PO HS #60 cap 09/02/20 01/12/21 Rx baclofen 10 mg tablet 10 mg PO Q8H PRN #60 tab 10/16/20 01/12/21 Rx gabapentin 300 mg capsule 300 mg PO TID #90 cap 12/24/20 01/12/21 Rx atorvastatin 40 mg tablet (Lipitor) 40 mg PO DAILY 01/12/21 01/12/21 History clopidogrel 75 mg tablet 75 mg PO QAM 01/12/21 01/12/21 History ergocalciferol (vitamin D2) 1,250 50,000 unit PO WK 01/12/21 01/12/21 History mcg (50,000 unit) capsule (Vitamin D2) finasteride 5 mg tablet 5 mg PO HS 01/12/21 01/12/21 History lamotrigine 25 mg tablet (Lamictal) See Rx Instructions .ROUTE .COMPLEX 01/12/21 01/12/21 History levothyroxine 150 mcg tablet 150 mcg PO QAM 01/12/21 01/12/21 History (Synthroid) modafinil 200 mg tablet (Provigil) 200 mg PO DAILY PRN 01/12/21 01/12/21 History Past Med/Surg History Medical History Central sleep apnea Cognitive disorder Depression Epilepsy On Tegretol/Epitol Gout Hernia History of meningioma of the brain BASAL SKULL. PT HAS HAD MULTIPLE CRAINOTOMY PROCEDURES AND 2 GAMMA KNIFE PROCEDURES. CONTINUES TO FOLLOW WITH DR. 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 History of cataract extraction with lens replacement History of craniotomy X4 INCLUDING GAMMA KNIFE SURGERY X2. 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 1996, 1997, 1998, 2001, AND 2002 History of eye surgery LEFT, R/T MUSCLE REPAIR History of hip surgery [place] PROCEDURE WITH DR. OTOOLE History of laminectomy L5 S1 History of surgery LEFT RING FINGER Status post carotid surgery LEFT ECA TO [facility], [facility] Family History Mother Hypertension Father Heart disease Social History Smoking Status: Never smoker Second Hand Exposure: No; Do You Dip or Chew Tobacco: No; Tobacco Cessation Education Requested by Patient: No Hx Alcohol Use: No Hx Substance Use: No Preferred Language: Macanese Communication Ability: Effective Tetryl Nitrator Operator Required: No Beliefs That Will Affect Care: None marital status: Current Living Situation: Alone and Rehab current occupational status: unemployed Other Information That Helps Us Care for You: No Feels Safe at Home: Yes Assistive Devices: Cane and Glasses Review of Systems Review of Systems: All systems reviewed & are unremarkable except as noted in HPI & below Physical Exam Constitutional: WD/WN, vitals as above no acute distress Eyes: + anicteric sclerae; normal pupil size No vision in left eye chronically ENMT: external ear and nose normal, oropharynx normal Mouth: oral mucous membranes not dry Neck: trachea midline, no thyromegaly Respiratory: normal respiratory effort, lungs clear to auscultation Cardiovascular: RRR, no murmur, no edema Gastrointestinal (Abdomen): normal bowel sounds, soft, nontender, no hepatosplenomegaly Musculoskeletal: no cyanosis or clubbing, extremities motor strength 5/5 Skin: no rashes, warm and dry Neurologic: CN's II-XI intact bilaterally (nill acute, chronic vision loss left eye, left facial droop), moves all extremities, + focal motor deficit (see below) and awake; not confused Speech / Cognition: normal speech Motor/Sensory: + pronator drift (left); no tremor Chronica changes: increased tone LUE, no active finger extension, wrist extension, shoulder abduction, no LLE weakness. He reports this are all chronic. Psychiatric: A+Ox3, euthymic affect Results & Data Results & Data ([facility]) Vital Signs (Past 12 Hours) Vital Signs Temp Pulse Resp BP Pulse Ox 01/12/21 13:00 65 13 105/75 100 01/12/21 12:00 67 14 115/72 100 01/12/21 11:21 76 17 110/76 100 01/12/21 10:11 36.4 C L 79 18 96/62 L 100 Laboratory Results Abnormal lab results 01/12/21 01/12/21 01/12/21 Range/Units 10:54 10:54 10:59 WBC 4.31 L (4.8-10.8) K/uL RBC 3.90 L (4.7-6.1) M/uL Hgb 11.4 L (14.0-18.0) g/dL Hct 34.5 L (42-52) % Wilkinson # (Auto) 0.67 H (0.11-0.59) K/uL Chloride 112 H (98-107) mmol/L Calcium 7.3 L (8.5-10.1) mg/dl AST 14 L (15-37) U/L Alkaline Phosphatase 42 L (45-117) U/L Carbamazepine 17.2 H* (4-12) mcg/ml Diagnostic Findings XR chest 1V portable CLINICAL HISTORY: hypotension, weakness COMPARISON STUDY: Chest radiograph December 08, 2019. FINDINGS: Lung volumes are normal. Lungs are clear. There is no pneumothorax or pleural effusion. Cardiac size is normal. Mediastinal contours are normal. There is no evidence for pulmonary edema. Old bilateral rib fractures are incidentally noted. IMPRESSION: No acute cardiopulmonary findings. Medications Administered ER Medications Given: NSS 2L bolus ECG Rate (beats per minute): 77 Rhythm: normal sinus Findings: + 1st degree AV block; no acute ischemic change Comparison ECG Date: from (December 08, 2019) Change: no significant change Code Status & VTE Plan Code Status Full - discussed with the patient VTE Prophylaxis Plan VTE Prophylaxis will be ordered: No Reason for no VTE drug order: Treatment not indicated PG Care Time/CCT Total # of Minutes Spent Total Time Spent with Patient: Total time spent is greater than 50% in coordination of care (as documented) at patient's floor/unit and/or counseling patient: Coding Level of Care Code INT OBSERVATION CARE 70M LVL 3 Diagnoses Acute hypotension I95.9 Carbamazepine toxicity T42.1X1A Localization-related (focal) (partial) symptomatic epilepsy and epileptic syndromes with complex partial seizures, intractable, without status epilepticus G40.219 Panhypopituitarism E23.0 Adhesive capsulitis of left shoulder M75.02 Occlusion of right carotid artery I65.21
[2021-01-12] MEDS ORDERED: HYDROCORTISONE 10 MG TAB PO STA (15:06)
[2021-01-12] MEDS ORDERED: ACETAMINOPHEN 325 MG TAB PO PRN (18:07)
[2021-01-12] MEDS ORDERED: BACLOFEN 10 MG TAB PO PRN (18:07)
[2021-01-12] MEDS ORDERED: ERGOCALCIFEROL 50,000 UNITS 1250 MCG CAP PO SCH (18:07)
[2021-01-12] MEDS ORDERED: EUCERIN CR 120 GM JAR EXT PRN (18:30)
[2021-01-12] MEDS: ACETAMINOPHEN 325 MG TAB PO PRN (20:46)
[2021-01-12] MEDS ORDERED: MAGNESIUM OXIDE 400 MG TAB PO SCH (21:00)
[2021-01-12] MEDS ORDERED: FAMOTIDINE 40 MG TABLET PO SCH (21:00)
[2021-01-12] MEDS ORDERED: FINASTERIDE 5 MG TAB PO SCH (21:00)
[2021-01-12] MEDS ORDERED: lamoTRIgine 25 MG TAB PO SCH (21:00)
[2021-01-12] MEDS ORDERED: NORTRIPTYLINE HCL 25 MG CAP PO SCH (21:00)
[2021-01-12] MEDS: PATIENT'S HEIGHT AND/OR WEIGHT NEEDED SCH ×2 (21:08→22:53)
[2021-01-12] MEDS: TAMSULOSIN HCL 0.4 MG CAP PO SCH (21:11)
[2021-01-12] MEDS: GABAPENTIN 300 MG CAP PO SCH (21:12)
[2021-01-12] MEDS: POTASSIUM CHLORIDE CRTAB 20 MEQ TABCR PO SCH (21:13)
[2021-01-12] MEDS: DOCUSATE SODIUM 100 MG CAP PO SCH (21:20)
[2021-01-13 06:13] LABS: Appearance Urine Clear (Clear); Bilirubin Urine Negative (Negative); Blood Urine Negative (Negative); Color Urine Yellow; Glucose Urine UA Negative (Negative); Ketones Urine Negative (Negative); Leukocyte Esterase Urine Negative (Negative); Nitrite Urine Negative (Negative); Protein Urine Negative (Negative); Specific Gravity Urine 1.018 (1.000-1.030); Urobilinogen Urine Negative (Negative)
[2021-01-13] MEDS ORDERED: LEVOTHYROXINE SODIUM 150 MCG TABLET PO SCH (06:30)
[2021-01-13] MEDS: PATIENT'S HEIGHT AND/OR WEIGHT NEEDED SCH ×3 (08:01→09:45)
[2021-01-13] MEDS: POTASSIUM CHLORIDE CRTAB 20 MEQ TABCR PO SCH (08:06)
[2021-01-13] MEDS: GABAPENTIN 300 MG CAP PO SCH ×2 (08:07→13:52)
[2021-01-13] MEDS: DOCUSATE SODIUM 100 MG CAP PO SCH (08:07)
[2021-01-13] MEDS ORDERED: lamoTRIgine 25 MG TAB PO SCH (09:00)
[2021-01-13] MEDS ORDERED: PSYLLIUM 58.6% POWDER PACKET PO SCH (09:00)
[2021-01-13] MEDS ORDERED: ATORVASTATIN 40 MG TAB PO SCH (09:00)
[2021-01-13] MEDS ORDERED: CLOPIDOGREL BISULFATE 75 MG TAB PO SCH (09:00)
[2021-01-13] MEDS ORDERED: HYDROCORTISONE 10 MG TAB PO SCH ×2 (09:00→14:00)
[2021-01-13] MEDS ORDERED: carBAMazepine 200 MG TABLET PO SCH (09:30)
[2021-01-13] MEDS: ACETAMINOPHEN 325 MG TAB PO PRN (14:18)
[2021-01-13] MEDS: TAMSULOSIN HCL 0.4 MG CAP PO SCH (16:36)
--- NOTE | 2021-01-13 16:53 | Electrocardiogram Report ---
Test Reason : Blood Pressure : / mmHG Vent. Rate : 077 BPM Atrial Rate : 077 BPM P-R Int : 226 ms QRS Dur : 100 ms QT Int : 396 ms P-R-T Axes : 036 -04 035 degrees QTc Int : 448 ms Sinus rhythm with 1st degree A-V block Otherwise normal ECG When compared with ECG of 08-DEC-2019 17:11, QT has shortened Confirmed by Enrique Diez ([id number]) on 01/13/2021 4:53:39 PM Referred By: REFERRED SELF Confirmed By:Enrique Diez
--- NOTE | 2021-01-13 17:04 | Discharge Summary ---
Date of Service date of admission - January 12, 2021 date of discharge - January 13, 2021 Admission HPI Per Admitting Provider Hitesh Mancia is a 65 year old male with previous craniotomy and central adrenal insufficiency who presents to the ER with hypotension. He recently moved back to the area after living with his brother for rehabilitation. He reports having a similar episode while living with his brother for which he went ot the ER and was given IV fluids but no definitive diagnosis was made. Both episodes occurred in the morning and he was hypotensive at the time. He just reports having a hard time walking and being unbalanced this morning. He staggered backwards in the living room and decided to call for an ambulance as he was concern about his risk of falling and hurting himself In the ER his carbamazepine level was noted to be elevated. He reports the last time his dose was increased was when he had his stroke. His last seizure was 10 years ago. He was hypotensive on arrival 96/62. He reports taking all his usual morning medications. He sometimes does not take his afternoon dose of hydrocortisone however depending on how much activity he is doing and varies this dose between 2.5-5mg. He was given 2L NSS bolus in the ER and referred to medicine for admission and ongoing management of weakness, hypotension and elevated carbamazepine levels. Principal Diagnosis Tegretol Toxicity Discharge Exam Gen: NAD, a/o x 3 Neck: no JVD Eyes: left eye esotropia Mouth: MMM Heart: RRR, s1 s2, no murmur Lungs: CTA b/l Abd: soft, NT, ND, BS+, no HSM Ext: no edema, pulses 2+ b/l Psych: a/o x 3 Discharge Data Allergies Allergy/AdvReac Type Severity Reaction Status Date / Time doxepin Allergy itchy Verified 01/12/21 12:44 amoxicillin [From Augmentin] AdvReac Intermediate diarrhea / Verified 01/12/21 12:44 hx c diff clavulanic acid AdvReac Intermediate diarrhea / Verified 01/12/21 12:44 [From Augmentin] hx c diff Consultations PT, OT Ordered Studies Chest X-Ray 01/12/21 10:17 XR chest 1V portable CLINICAL HISTORY: hypotension, weakness COMPARISON STUDY: Chest radiograph December 08, 2019. FINDINGS: Lung volumes are normal. Lungs are clear. There is no pneumothorax or pleural effusion. Cardiac size is normal. Mediastinal contours are normal. There is no evidence for pulmonary edema. Old bilateral rib fractures are incidentally noted. IMPRESSION: No acute cardiopulmonary findings. ACT 112: Negative or not required by law. Electronically signed by: Zac Klein M.D. 01/12/2021 11:20 AM Hospital Course (1) Carbamazepine toxicity: Patient's presenting symptoms were felt 2nd to tegretol toxicity. Tegretol level at time of admission was 17 (therapeutic range: 4-12). Tegretol was held, and on hospital day #2 the level fell to 10.5. All presenting symptoms improved with IV hydration and simply holding his tegretol. I discussed his care with [facility] and they advised reducing his tegretol from 400mg BID to 200mg BID. He will need a repeat tegretol level on the AM of 01/21/21. He should f/u with his primary neurologist within about 7-10 days of discharge. (2) Acute hypotension: resolved. potentially 2nd to #1 above. He was NOT orthostatic during this brief stay. (3) Trigeminal neuralgia: (4) Panhypopituitarism: Patient reported that sometimes he does not take his afternoon dose of hydrocortisone. He was counseled that it was vital to take both his AM and PM doses of hydrocortisone to avoid adrenal crisis and adrenal insufficiency symptoms. Additionally, he has not had a free T4 in about 1 year. Will check a Free T4 as an outpatient to ensure his central hypothyroidism is compensated. Can obtain at time of tegretol level. (5) Localization-related (focal) (partial) symptomatic epilepsy and epileptic syndromes with complex partial seizures, intractable, without status epilepticus: no recent seizures at home or any seizure events during this brief hospitalization. (6) Benign tumor of meningioma (cerebral): s/p multiple procedures in the past (gamma knife, etc) (7) Chronic headaches: (8) Adrenal insufficiency: see above Seen by PT/OT - both advised a home safety evaluation given his medical issues, use of quad-cane, etc Home Health Attestation I certify that this patient is under my care and that I, or a physicians tmd teacher assistant working with me, had a face to-face encounter that meets the home health [id number] encounter requirements with this patient. The encounter with the patient was in whole, or in part, for the following medical condition, which is the primary reason for home health care (list medical condition): I certify that, based on my findings, the following services are medically necessary home health services: My clinical findings support the need for the above services because: Further, I certify that my clinical findings support that this patient is homebound (i.e. absences from home require considerable and taxing effort and are for medical reasons or zoroastrian services or infrequently or of short duration when for other reasons) because: Certification for Home Health Services: Based on the above findings, I certify that this patient is confined to the home and needs intermittent fpc care, physical therapy and/or speech therapy or continues to need occupational therapy. The patient is under my care, and I have initiated the establishment of the plan of care. This patient will be followed by a physician who will periodically review the plan of care. Total Time Total Time Spent Total Time Spent (In Minutes): 30 Discharge Plan Discharge Items Patient Disposition: Home - Home Health Services Reason For Visit: HYPOTENSION (low blood pressure) Discharge Diagnosis: Tegretol (carbamazepine) toxicity Activity: Resume your previous activity Non-emergency contact: Primary Care Provider and Neurologist Call non-emergency contact if: you have any medication questions and your symptoms worsen Follow-up/Referrals: Pradeep Mandujano MD [Physician] - (3-4 weeks ) Wilfred Minor III, MD [Primary Care Provider] - (1 week) Diet: Regular Ambulatory Orders: Carbamazepine Tegretol (Routine) Timeframe: 20210121 Location: Determined by Patient Ordered By: Yousuf Cisneros T4 Free Thyroxine (Routine) Timeframe: 20210121 Location: Determined by Patient Ordered By: Yousuf Cisneros Addtl Attending Provider Instructions: Mr Mancia, You were admitted to the hospital after feeling off-balance/unsteady on your feet at home. Upon arrival to [facility] your blood pressure was mildly low and your carbamazapine level was high at 17. It was felt that your presenting symptoms were likely due to "tegretol toxicity." Your carbamazapine (tegretol) was held, and your repeat level this morning was in range. After speaking with Dr Mandujano from neurology he advised REDUCING your carbamazapine dose to 200mg twice daily (previously it was 400mg twice daily). He also recommends a repeat carbamazapine level in about 1 week. You were seen by PT and OT and both felt you were ok to return home. They did recommend one-time PT/OT evals at your home mainly for safety purposes. Recommendations 1. reduce your carbamazapine dose to 200mg twice daily starting TONIGHT. 2. labs - please have them drawn next Wednesday, 01/21 - digestion operator - before taking your morning dose of carbamazapine. I am also going to check a thyroid level (free T4) as it has not been done since last fall through the [facility] system. This will ensure your thyroid medication dose is correct. 3. please be sure to take your hydrocortisone as directed EVERY morning and EVERY Afternoon. It is vital that you do not skip any doses at any time. Do not lower any doses unless directed by your outpatient providers. Skipping doses could lead to what is called an "adrenal crisis" where your electrolytes become abnormal, your blood pressure drops, and you feel very poorly. Follow-up - see separate section Return to [facility] if - * you begin to feel unsteady on your feet once again * you have any worsening weakness of any limb * you have worsening vision * you have difficulty speaking or swallowing * you have fevers over 100.5 degrees * any other concerns It was our pleasure to care for you at [facility]! -Dr Cisneros Pending Studies at Discharge: No Stand-Alone Forms: My [facility], Smoking Cessation Medications and DC Order Prescriptions: Continued famotidine 20 mg tablet 40 mg PO HS Qty: 180 RF: 3 potassium chloride 20 mEq tablet extended release 40 meq PO BID Qty: 360 RF: 3 tamsulosin 0.4 mg capsule 0.4 mg PO QDD Qty: 90 RF: 3 nortriptyline 25 mg capsule 50 mg PO HS Qty: 60 RF: 3 magnesium oxide 400 mg magnesium tablet 400 mg PO HS Qty: 90 RF: 3 gabapentin 300 mg capsule 300 mg PO TID Qty: 90 RF: 2 testosterone [AndroGel] 1 % (25 mg/2.5gram) gel in packet 1 packet transdermal DAILY RF: 0 Eucerin Original Lotion 1 applic topical .COMPLEX RF: 0 acetaminophen 325 mg tablet 650 mg PO Q6H PRN (Reason: Fever Or Pain) RF: 0 hydrocortisone 10 mg tablet 10 mg PO QAM RF: 0 hydrocortisone [Cortef] 5 mg tablet 5 mg PO .afternoon RF: 0 levothyroxine [Synthroid] 150 mcg tablet 150 mcg PO QAM RF: 0 ergocalciferol (vitamin D2) [Vitamin D2] 1,250 mcg (50,000 unit) capsule 50,000 unit PO WK RF: 0 atorvastatin [Lipitor] 40 mg tablet 40 mg PO DAILY RF: 0 clopidogrel 75 mg tablet 75 mg PO QAM RF: 0 lamotrigine [Lamictal] 25 mg tablet See Rx Instructions .ROUTE .COMPLEX RF: 0 modafinil [Provigil] 200 mg tablet 200 mg PO DAILY PRN (Reason: PRN) RF: 0 finasteride 5 mg tablet 5 mg PO HS RF: 0 Changed carbamazepine 200 mg tablet 200 mg PO BID Qty: 60 RF: 2 No Action baclofen 10 mg tablet 10 mg PO Q8H PRN (Reason: Hemiplegia) Qty: 60 RF: 0 Discharge Orders: Discharge Order (Routine); Ordered 01/13/21 Ordered By: Yousuf Cisneros Admission Data Admit Date/Time: 01/12/21 15:17 Attending Provider: Yousuf Cisneros Admit Provider: Yousuf Pinzon Primary Care Provider: Wilfred Minor III Other Providers: Yousuf Pinzon ; [place] Other Interventions: Discharge Summary Assessment (RN) Last Done: 01/13/21 16:52 Coding Level of Care Code 16875 OBS Care - Discharge Diagnoses Carbamazepine toxicity T42.1X1A Acute hypotension I95.9 Trigeminal neuralgia G50.0 Panhypopituitarism E23.0 Localization-related (focal) (partial) symptomatic epilepsy and epileptic syndromes with complex partial seizures, intractable, without status epilepticus G40.219 Benign tumor of meningioma (cerebral) D32.0 Chronic headaches R51 Headache type: unspecified Adrenal insufficiency E27.40
== END 2021-01-13 17:29 | disposition home health service (06) ==
LOC: EDINP 09:54 → ED 09:54 → SUATTDRO 15:17 → 2W 18:39